=== PATIENT | female | born 1955 | race Caucasian/White ===

== ENCOUNTER → 2017-12-22 15:38 | Outpatient (CLI) | payer BC, SELFPAY ==
--- NOTE | 2017-12-22 15:38 | HPBD_ITS ---
STUDY: DUAL ENERGY X-RAY ABSORPTIOMETRY / DXA REASON FOR EXAM: Female, 62 years old. Early menopause. Loss of height. TECHNIQUE: Bone Mineral Density (BMD) measurements of lumbar spine and bilateral hips were obtained. COMPARISON: Comparison is made with prior study dated July 31, 2015. FINDINGS: Lumbar Spine (L1-L4): g/cm2 (0.891) / T-score (-2.6) / Z-score (-1.4) Findings are suggestive of osteoporosis with a high fracture risk. Left Femur Total: g/cm2 (0.776) / T-score (-1.8) / Z-score (-0.9) Left Femoral Neck: g/cm2 (0.754) / T-score (-2.0) / Z-score (-0.8) Right Femur Total: g/cm2 (0.758) / T-score (-2.0) / Z-score (-1.1) Right Femoral Neck: g/cm2 (0.763) / T-score (-2.0) / Z-score (-0.7) The T-Scores on the most recent prior examination were: Lumbar Spine (L1-L4): There has been improvement of bone density since the previous examination. Left Femur Total: which represents an improvement of 0.1%. Right Femur Total: which represents an improvement of 2.2%. HPBD/Dexa Bone Density Study (HP) IMPRESSION: The patient is considered osteoporotic as outlined below according to World Spenser Organization (WHO) criteria with a high fracture risk. There has been improvement of bone density since the previous examination. Reference Information: The T-score is the number of standard deviations above or below the standard which is normal for young adults at their peak bone mineral density. The World Health Organization (WHO) interprets the T-scores as follows: Above -1 Normal bone density Between -1 and -2.5 Osteopenia Equal to / or below -2.5 Osteoporosis As a practical clinical guideline, osteopenia may be graded as follows: Mild -1 through -1.5 Moderate -1.6 through -2.0 Severe -2.1 through -2.4 The Z-score is the number of standard deviations above or below age-matched controls. A Z-score of less than -1.5 would be considered abnormal. References: 1. NIH Osteoporosis and Related Bone Diseases http://www.osteo.org 2. International Society for Clinical Densitometry http://www.iscd.org 3. National Osteoporosis Foundation http://www.nof.org Electronically Signed: Rk Rodgers MD at 9:15 EST Tel [phone], Service support ,
--- NOTE | 2017-12-22 15:38 | HPBI_ITS ---
MAMMOGRAPHY - BILATERAL SCREENING REASON FOR EXAM: Female, 62 years old. Routine annual screening examination. PERTINENT HISTORY: Mother with breast cancer. Aunts with breast cancer. TECHNIQUE: Digital bilateral breast natalie (3D mammographic acquisition) in the CC and MLO projections. 2-D mediolateral oblique (MLO) and craniocaudad (CC) views of both breasts were obtained. CAD: Full Field Digital Mammography with Computer Added Detection was performed. COMPARISON: Comparison is made with prior study dated July 03, 2016 and June 12, 2015. FINDINGS: Breast Composition: There are scattered areas of fibroglandular density. There are no dominant masses or suspicious calcifications. No other significant abnormalities are identified. There has been no significant change since the prior study. HPBI/SCREENING MAMM (CAD), BILAT IMPRESSION: Stable bilateral screening mammogram. Yearly follow-up mammogram recommended. (A) ASSESSMENT CATEGORY: BIRADS Category 1: Negative. A letter regarding these results will be sent to the patient by the facility within 30 days. Approximately 10% of breast cancers are not detected by mammography. A normal mammogram should not delay biopsy of a clinically suspicious abnormality. [id number] Electronically Signed: Rk Rodgers MD at 8:07 EST Tel [phone], Service support ,
== END ==
PROVIDERS: Family Provider Family Medicine; PCP Family Medicine; Visit Provider Family Medicine
DX: Z12.31 Encounter for screening mammogram for malignant neoplasm of breast (principal); M81.0 Age-related osteoporosis without current pathological fracture
CPT/HCPCS: 77063; 77067; 77080

== ENCOUNTER → 2019-05-27 | Outpatient (CLI) | payer BC, SELFPAY ==
--- NOTE | 2019-05-27 14:49 | BI_ITS ---
MAMMOGRAPHY - BILATERAL SCREENING REASON FOR EXAM: Female, 63 years old. Routine annual screening examination. PERTINENT HISTORY: Mother with breast cancer. Aunts with breast cancer. TECHNIQUE: Digital bilateral breast rosa (3D mammographic acquisition) in the CC and MLO projections. 2-D mediolateral oblique (MLO) and craniocaudad (CC) views of both breasts were obtained. CAD: Full Field Digital Mammography with Computer Added Detection was performed. COMPARISON: Comparison is made with prior study dated December 22, 2017 and July 03, 2016. FINDINGS: Breast Composition: There are scattered areas of fibroglandular density. There are no dominant masses or suspicious calcifications. No other significant abnormalities are identified. There has been no significant change since the prior study. BI/SCREEN MAMM (CAD) W/ROSA BILAT IMPRESSION: Stable bilateral screening mammogram. Yearly follow-up mammogram recommended. (A) ASSESSMENT CATEGORY: BIRADS Category 1: Negative. A letter regarding these results will be sent to the patient by the facility within 30 days. Approximately 10% of breast cancers are not detected by mammography. A normal mammogram should not delay biopsy of a clinically suspicious abnormality. [id number] Electronically Signed: Rk Rodgers, at 8:30 EDT , Service support ,
== END | disposition home or self-care (01) ==
PROVIDERS: Family Provider Family Medicine; PCP Family Medicine; Referring Provider Specialist; Visit Provider Specialist
DX: Z12.31 Encounter for screening mammogram for malignant neoplasm of breast (principal)
CPT/HCPCS: 77063; 77067

== ENCOUNTER → 2020-06-28 14:00 | Outpatient (CLI) | payer BC, SELFPAY ==
--- NOTE | 2020-06-28 14:03 | BI_ITS ---
MAMMOGRAPHY - BILATERAL SCREENING REASON FOR EXAM: Female, 64 years old. Routine annual screening examination. PERTINENT HISTORY: Mother with breast cancer. Aunts with breast cancer. TECHNIQUE: Digital bilateral breast rosa (3D mammographic acquisition) in the CC and MLO projections. 2-D mediolateral oblique (MLO) and craniocaudad (CC) views of both breasts were obtained. CAD: Full Field Digital Mammography with Computer Added Detection was performed. COMPARISON: Comparison is made with prior study dated 05/27/2019 and 12/22/2017. FINDINGS: Breast Composition: There are scattered areas of fibroglandular density. There are no dominant masses or suspicious calcifications. No other significant abnormalities are identified. There has been no significant change since the prior study. BI/SCREEN MAMM (CAD) W/ROSA BILAT IMPRESSION: Stable bilateral screening mammogram. Yearly follow-up mammogram recommended. (A) ASSESSMENT CATEGORY: BIRADS Category 1: Negative. A letter regarding these results will be sent to the patient by the facility within 30 days. Approximately 10% of breast cancers are not detected by mammography. A normal mammogram should not delay biopsy of a clinically suspicious abnormality. [id number] Electronically Signed: Rk Rodgers, at 8:58 EDT , Service support ,
--- NOTE | 2020-06-28 14:05 | BD_ITS ---
STUDY: DUAL ENERGY X-RAY ABSORPTIOMETRY / DXA REASON FOR EXAM: Female, 64 years old. Age of hortencia 47. Pat is 169.8# and 66.5 and quot; a loss of 1 and quot; per pat. Pat thinks she was on a anti-seizure med for a couple of yrs many yrs ago. Currently on an HRT. Takes levothyroxin. Has been on fosomax for about 3 yrs now. Mother and sister have osteo. She does a little to moderate exercising. TECHNIQUE: Bone Mineral Density (BMD) measurements of lumbar spine and bilateral hips were obtained. COMPARISON: Comparison is made with prior study dated 07/31/2015. FINDINGS: Lumbar Spine (L1-L4): g/cm2 (0.946) / T-score (-2.1) / Z-score (-0.7) Findings are suggestive of osteopenia with a high fracture risk. Left Femur Total: g/cm2 (0.791) / T-score (-1.7) / Z-score (-0.7) Left Femoral Neck: g/cm2 (0.804) / T-score (-1.7) / Z-score (-0.3) Right Femur Total: g/cm2 (0.772) / T-score (-1.9) / Z-score (-0.8) Right Femoral Neck: g/cm2 (0.778) / T-score (-1.9) / Z-score (-0.5) The T-Scores on the most recent prior examination were: Lumbar Spine (L1-L4): There has been improvement of bone density since the previous examination. Left Femur Total: which represents an improvement of 1.9%. Right Femur Total: which represents an improvement of 1.8%. BD/Dexa Bone Density Study IMPRESSION: The patient is considered osteopenic as outlined below according to World Spenser Organization (WHO) criteria with a high fracture risk. There has been improvement of bone density since the previous examination. Reference Information: The T-score is the number of standard deviations above or below the standard which is normal for young adults at their peak bone mineral density. The World Health Organization (WHO) interprets the T-scores as follows: Above -1 Normal bone density Between -1 and -2.5 Osteopenia Equal to / or below -2.5 Osteoporosis As a practical clinical guideline, osteopenia may be graded as follows: Mild -1 through -1.5 Moderate -1.6 through -2.0 Severe -2.1 through -2.4 The Z-score is the number of standard deviations above or below age-matched controls. A Z-score of less than -1.5 would be considered abnormal. References: 1. NIH Osteoporosis and Related Bone Diseases http://www.osteo.org 2. International Society for Clinical Densitometry http://www.iscd.org 3. National Osteoporosis Foundation http://www.nof.org Electronically Signed: Rk Rodgers, at 12:34 EDT , Service support ,
== END ==
PROVIDERS: PCP Family Medicine
DX: Z12.31 Encounter for screening mammogram for malignant neoplasm of breast (principal); M81.8 Other osteoporosis without current pathological fracture
CPT/HCPCS: 77063; 77067; 77080

== ENCOUNTER → 2021-07-01 12:07 | Outpatient (CLI) | payer BC, SELFPAY ==
--- NOTE | 2021-07-01 12:09 | BI_ITS ---
MAMMOGRAPHY - BILATERAL SCREENING REASON FOR EXAM: Female, 65 years old. Routine annual screening examination. PERTINENT HISTORY: Mother with breast cancer. Aunts with breast cancer. TECHNIQUE: Digital bilateral breast rosa (3D mammographic acquisition) in the CC and MLO projections. 2-D mediolateral oblique (MLO) and craniocaudad (CC) views of both breasts were obtained. CAD: Full Field Digital Mammography with Computer Added Detection was performed. COMPARISON: Comparison is made with prior study 06/28/2020 and 05/27/2019. FINDINGS: Breast Composition: There are scattered areas of fibroglandular density. There are no dominant masses or suspicious calcifications. No other significant abnormalities are identified. There has been no significant change since the prior study. BI/SCRN MAMM (CAD)W/ROSA BILAT IMPRESSION: Stable bilateral screening mammogram. Yearly follow-up mammogram recommended. (A) ASSESSMENT CATEGORY: BIRADS Category 1: Negative. A letter regarding these results will be sent to the patient by the facility within 30 days. Approximately 10% of breast cancers are not detected by mammography. A normal mammogram should not delay biopsy of a clinically suspicious abnormality. [id number] Electronically Signed: Rk Rodgers MD at 12:54 EDT , Service support ,
== END ==
PROVIDERS: PCP Nurse Practitioner Family; Referring Provider Specialist; Visit Provider Specialist
DX: Z12.31 Encounter for screening mammogram for malignant neoplasm of breast (principal)
CPT/HCPCS: 77063; 77067

== ENCOUNTER → 2022-07-29 | Outpatient (CLI) | payer BC, SELFPAY ==
--- NOTE | 2022-07-29 10:00 | BI_ITS ---
MAMMOGRAPHY - BILATERAL SCREENING REASON FOR EXAM: Female, 66 years old. Routine annual screening examination. PERTINENT HISTORY: Mother with breast cancer. Aunts with breast cancer. TECHNIQUE: Digital bilateral breast rosa (3D mammographic acquisition) in the CC and MLO projections. 2-D mediolateral oblique (MLO) and craniocaudad (CC) views of both breasts were obtained. CAD: Full Field Digital Mammography with Computer Added Detection was performed. COMPARISON: Comparison is made with prior study dated 07/01/2021 and 06/28/2020. FINDINGS: Breast Composition: There are scattered areas of fibroglandular density. There are no dominant masses or suspicious calcifications. No other significant abnormalities are identified. There has been no significant change since the prior study. BI/SCRN MAMM (CAD)W/ROSA BILAT IMPRESSION: Stable bilateral screening mammogram. Yearly follow-up mammogram recommended. (A) ASSESSMENT CATEGORY: BIRADS Category 1: Negative. A letter regarding these results will be sent to the patient by the facility within 30 days. Approximately 10% of breast cancers are not detected by mammography. A normal mammogram should not delay biopsy of a clinically suspicious abnormality. [id number] Electronically Signed: Rk Rodgers MD at 8:48 EDT ,
--- NOTE | 2022-07-29 10:17 | BD_ITS ---
STUDY: DUAL ENERGY X-RAY ABSORPTIOMETRY / DXA REASON FOR EXAM: Female, 66 years old. M810. Patient is postmenopausal. TECHNIQUE: Bone Mineral Density (BMD) measurements of lumbar spine and bilateral hips were obtained. COMPARISON: Comparison is made with prior study 06/28/2020. FINDINGS: Lumbar Spine (L1-L4): g/cm2 (0.784) / T-score (-2.4) / Z-score (-0.6) Findings are suggestive of osteopenia with a high fracture risk. Left Femur Total: g/cm2 (0.787) / T-score (-1.3) / Z-score (-0.1) Left Femoral Neck: g/cm2 (0.647) / T-score (-1.8) / Z-score (-0.3) Right Femur Total: g/cm2 (0.750) / T-score (-1.6) / Z-score (-0.4) Right Femoral Neck: g/cm2 (0.640) / T-score (-1.9) / Z-score (-0.4) The T-Scores on the most recent prior examination were: Lumbar Spine (L1-L4): There has been worsening of bone density since the previous examination. Left Femur Total: which represents an improvement of 7.7%. Right Femur Total: which represents an improvement of 5.1%. BD/Dexa Bone Density Study IMPRESSION: The patient is considered osteopenic as outlined below according to World Spenser Organization (WHO) criteria with a moderate fracture risk. There has been improvement of bone density since the previous examination. Reference Information: The T-score is the number of standard deviations above or below the standard which is normal for young adults at their peak bone mineral density. The World Health Organization (WHO) interprets the T-scores as follows: Above -1 Normal bone density Between -1 and -2.5 Osteopenia Equal to / or below -2.5 Osteoporosis As a practical clinical guideline, osteopenia may be graded as follows: Mild -1 through -1.5 Moderate -1.6 through -2.0 Severe -2.1 through -2.4 The Z-score is the number of standard deviations above or below age-matched controls. A Z-score of less than -1.5 would be considered abnormal. References: 1. NIH Osteoporosis and Related Bone Diseases www osteo.org 2. International Society for Clinical Densitometry www iscd.org 3. National Osteoporosis Foundation www nof.org Electronically Signed: Rk Rodgers MD at 11:04 EDT ,
== END | disposition home or self-care (01) ==
LOC: OPBD 09:57
PROVIDERS: PCP Student in an Organized Health Care Education/Training Program; Visit Provider Specialist
DX: Z12.31 Encounter for screening mammogram for malignant neoplasm of breast (principal); Z78.0 Asymptomatic menopausal state; Z87.310 Personal history of (healed) osteoporosis fracture
CPT/HCPCS: 77063; 77067; 77080

== ENCOUNTER → 2023-07-01 | Outpatient (CLI) | payer MEDICARE, OTHER, SELFPAY ==
--- NOTE | 2023-07-01 08:44 | BI_ITS ---
MAMMOGRAPHY - BILATERAL SCREENING REASON FOR EXAM: Female, 67 years old. Routine annual screening examination. PERTINENT HISTORY: Mother with breast cancer. Aunts with breast cancer. TECHNIQUE: Digital bilateral breast rosa (3D mammographic acquisition) in the CC and MLO projections. 2-D mediolateral oblique (MLO) and craniocaudad (CC) views of both breasts were obtained. CAD: Full Field Digital Mammography with Computer Added Detection was performed. COMPARISON: Comparison is made with prior study dated July 29, 2022 and July 01, 2021. FINDINGS: Breast Composition: There are scattered areas of fibroglandular density. There are no dominant masses or suspicious calcifications. No other significant abnormalities are identified. There has been no significant change since the prior study. BI/SCRN MAMM (CAD)W/ROSA BILAT IMPRESSION: Stable bilateral screening mammogram. Yearly follow-up mammogram recommended. (A) ASSESSMENT CATEGORY: BIRADS Category 1: Negative. A letter regarding these results will be sent to the patient by the facility within 30 days. Approximately 10% of breast cancers are not detected by mammography. A normal mammogram should not delay biopsy of a clinically suspicious abnormality. [id number] Electronically Signed: Rk Rodgers MD at 9:37 EDT ,
== END | disposition home or self-care (01) ==
LOC: OPBI 08:42
PROVIDERS: PCP Student in an Organized Health Care Education/Training Program; Referring Provider Nurse Practitioner Women's Health; Visit Provider Nurse Practitioner Women's Health
DX: Z12.31 Encounter for screening mammogram for malignant neoplasm of breast (principal); Z80.3 Family history of malignant neoplasm of breast
CPT/HCPCS: 77063; 77067

== ENCOUNTER → 2024-08-09 | Outpatient (CLI) | payer MEDICARE, OTHER, SELFPAY ==
--- NOTE | 2024-08-09 13:17 | BI_ITS ---
MAMMOGRAPHY - BILATERAL SCREENING REASON FOR EXAM: Female, 68 years old. Routine annual screening examination. PERTINENT HISTORY: Mother with breast cancer. Aunts with breast cancer. TECHNIQUE: Digital bilateral breast rosa (3D mammographic acquisition) in the CC and MLO projections. 2-D mediolateral oblique (MLO) and craniocaudad (CC) views of both breasts were obtained. CAD: Full Field Digital Mammography with Computer Added Detection was performed. COMPARISON: Comparison is made with prior study July 01, 2023 and July 29, 2022. FINDINGS: Breast Composition: There are scattered areas of fibroglandular density. There are no dominant masses or suspicious calcifications. No other significant abnormalities are identified. There has been no significant change since the prior study. BI/SCRN MAMM (CAD)W/ROSA BILAT IMPRESSION: Stable bilateral screening mammogram. Yearly follow-up mammogram recommended. (A) ASSESSMENT CATEGORY: BIRADS Category 1: Negative. A letter regarding these results will be sent to the patient by the facility within 30 days. Approximately 10% of breast cancers are not detected by mammography. A normal mammogram should not delay biopsy of a clinically suspicious abnormality. [id number] Electronically Signed: Rk Rodgers MD at 14:22 EDT ,
--- NOTE | 2024-08-09 13:21 | BD_ITS ---
STUDY: DUAL ENERGY X-RAY ABSORPTIOMETRY / DXA REASON FOR EXAM: Female, 68 years old. M810 TECHNIQUE: Bone Mineral Density (BMD) measurements of lumbar spine and bilateral hips were obtained. COMPARISON: Comparison is made with prior study July 29, 2022. FINDINGS: Lumbar Spine (L1-L4): g/cm2 (0.803) / T-score (-2.2) / Z-score (-0.3) Findings are suggestive of osteopenia with a high fracture risk. Left Femur Total: g/cm2 (0.789) / T-score (-1.3) / Z-score (0.1) Left Femoral Neck: g/cm2 (0.654) / T-score (-1.8) / Z-score (-0.1) Right Femur Total: g/cm2 (0.768) / T-score (-1.4) / Z-score (-0.1) Right Femoral Neck: g/cm2 (0.667) / T-score (-1.6) / Z-score (0.0) The T-Scores on the most recent prior examination were: Lumbar Spine (L1-L4): There has been improvement of bone density since the previous examination. Left Femur Total: which represents an improvement of 0.2%. Right Femur Total: which represents an improvement of 2.4%. BD/Dexa Bone Density Study IMPRESSION: The patient is considered osteopenic as outlined below according to World Spenser Organization (WHO) criteria with a high fracture risk. There has been improvement of bone density since the previous examination. Reference Information: The T-score is the number of standard deviations above or below the standard which is normal for young adults at their peak bone mineral density. The World Health Organization (WHO) interprets the T-scores as follows: Above -1 Normal bone density Between -1 and -2.5 Osteopenia Equal to / or below -2.5 Osteoporosis As a practical clinical guideline, osteopenia may be graded as follows: Mild -1 through -1.5 Moderate -1.6 through -2.0 Severe -2.1 through -2.4 The Z-score is the number of standard deviations above or below age-matched controls. A Z-score of less than -1.5 would be considered abnormal. References: 1. NIH Osteoporosis and Related Bone Diseases www osteo.org 2. International Society for Clinical Densitometry www iscd.org 3. National Osteoporosis Foundation www nof.org Electronically Signed: Rk Rodgers MD at 12:51 EDT ,
== END | disposition home or self-care (01) ==
LOC: OPBD 13:14
PROVIDERS: PCP Student in an Organized Health Care Education/Training Program; Referring Provider Student in an Organized Health Care Education/Training Program; Visit Provider Student in an Organized Health Care Education/Training Program
DX: Z00.00 Encounter for general adult medical examination without abnormal findings (principal); Z12.31 Encounter for screening mammogram for malignant neoplasm of breast; Z80.3 Family history of malignant neoplasm of breast; Z78.0 Asymptomatic menopausal state; M81.0 Age-related osteoporosis without current pathological fracture; Z13.820 Encounter for screening for osteoporosis
CPT/HCPCS: 77063; 77067; 77080

== ENCOUNTER → 2025-09-11 | Outpatient (CLI) | payer MEDICARE, OTHER, SELFPAY ==
--- NOTE | 2025-09-11 14:39 | BI_ITS ---
EXAM: SCRN MAMM (CAD)W/ROSA BILAT DATE: 09/11/2025 CLINICAL HISTORY: F, Age 69 y/o , SCREENING TECHNIQUE: Procedure Code: [id number] Modality: MG Procedure: SCRN MAMM (CAD)W/ROSA BILAT COMPARISON: Prior exam(s) were compared FINDINGS: TISSUE DENSITY: The breasts are heterogeneously dense, which may obscure small masses. Bilateral Breast Mammographic Findings: No suspicious masses, calcifications or other abnormalities are identified. BI/SCRN MAMM (CAD)W/ROSA BILAT IMPRESSION: No mammographic evidence of malignancy in either breast. OVERALL FINAL ASSESSMENT BI-RADS 1: NEGATIVE. RECOMMENDATION: Routine annual follow-up in 1 Year Additional Recommendation none A letter with findings and recommendations will be mailed to the patient. Reading Location: [id number]
--- NOTE | 2025-09-11 14:39 | BI_ITS ---
EXAM: SCRN MAMM (CAD)W/ROSA BILAT DATE: 09/11/2025 CLINICAL HISTORY: F, Age 69 y/o , SCREENING TECHNIQUE: Procedure Code: [id number] Modality: MG Procedure: SCRN MAMM (CAD)W/ROSA BILAT COMPARISON: Prior exam(s) were compared FINDINGS: TISSUE DENSITY: The breasts are heterogeneously dense, which may obscure small masses. Bilateral Breast Mammographic Findings: No suspicious masses, calcifications or other abnormalities are identified. BI/SCRN MAMM (CAD)W/ROSA BILAT IMPRESSION: No mammographic evidence of malignancy in either breast. OVERALL FINAL ASSESSMENT BI-RADS 1: NEGATIVE. RECOMMENDATION: Routine annual follow-up in 1 Year Additional Recommendation none A letter with findings and recommendations will be mailed to the patient. Reading Location: [id number]
--- OUTSIDE RECORDS SUMMARY | 2025-09-11 15:14 | XMS RPT_ITS | CCD ---
[facility] Team Providers Care Art Psychotherapist Or Therapist Name Role Phone VLADIMIR RUDOLPH APRN, CNP Primary Care Phys ician ROMAR DO, DR COOK Primary Care Physician [phone] JOSÉ MIGUEL PIPER-BYRON, JESSICA Hernandez Attending Unavailab le ROMAR DO, DR COOK Primary Care Unavailable ROMAR DO, DR COOK Attending Unavailable ROMAR DO, DR COOK Primary Care Unavailable JOSÉ MIGUEL PIPER-CAPACITY PLANNING ENGINEER, JESSICA Hernandez Attending Unavailab le ROMAR DO, DR COOK Primary Care Unavailable ROMAR DO, DR COOK Attending Unavailable ROMAR DO, DR COOK Primary Care Unavailable ROMAR DO, DR COOK Attending Unavailable ROMAR DO, DR COOK Primary Care Unavailable SHEROCK DO, HAIDER Zhong Attending Unavailab le ROMAR DO, DR COOK Primary Care Unavailable HAYES REEDER MD Attending Unavailable ROMAR DO, DR COOK Primary Care Unavailable MARTIR BAILEYP-CSTEVEN Attending Unavailabl e ROMAR DO, DR COOK Primary Care Unavailable ROMAR DO, DR COOK Primary Care Unavailable ROMAR DO, DR COOK Attending Unavailable ROMAR DO, DR COOK Primary Care Unavailable ROMAR DO, DR COOK Attending Unavailable ROMAR DO, DR COOK Primary Care Unavailable JOSÉ MIGUEL SUPERVISOR TILE AND MOTTLE-CAPACITY PLANNING ENGINEER, JESSICA Hernandez Attending Unavailab le ROMAR DO, DR COOK Primary Care Unavailable ROMAR DO, DR COOK Attending Unavailable ROMAR DO, DR COOK Primary Care Unavailable ROSAURA MCCOLLUM Attending Unavailabl e ROMAR DO, DR COOK Primary Care Unavailable DENVER PIPER-MICHAEL, REFUGIO Hernandez Attending Yanelis vailable ROMAR DO, DR COOK Attending Unavailable ROMAR DO, DR COOK Primary Care Unavailable ROMAR DO, DR COOK Primary Care Unavailable SHEROCK DO, HAIDER Zhong Attending Unavailab le ROMAR DO, DR COOK Attending Unavailable ROMAR DO, DR COOK Primary Care Unavailable ROMAR DO, DR COOK Primary Care Unavailable ROMAR DO, DR COOK Attending Unavailable ROMAR DO, DR COOK Primary Care Unavailable MARTIR INSULATION NOZZLEMAN-C, STEVEN Lance Attending Unavailabl e ROMAR DO, DR COOK Primary Care Unavailable ROMAR DO, DR COOK Attending Unavailable ROMAR DO, DR COOK Attending Unavailable ROMAR DO, DR COOK Primary Care Unavailable ROMAR DO, DR COOK Attending Unavailable ROMAR DO, DR COOK Primary Care Unavailable ROMAR DO, DR COOK Primary Care Unavailable ROMAR DO, DR COOK Attending Unavailable ROMAR DO, DR COOK Primary Care Unavailable JOVAN SUPERVISOR TILE AND MOTTLE-CAPACITY PLANNING ENGINEER, PHILIP Attending Unavail able ROMAR DO, DR COOK Primary Care Unavailable VENICE APRN_CNP, ROSAURA Attending Unavailabl Joyce Pardo Referring Unavailable Joyce Lynn Attending Unavailable Joyce Lynn Primary Care Unavailable Allergies Allergy Classification Reported Allergen(s) Allergy Type Date of Onset Reaction(s) Facility (20 sources) Penicillin; Translations: [penicillin] Drug Allergy Weal (disorder) [facility] (20 sources) Sulfonamides (Antibiotic); Translations: [sulfa drugs] Drug allergy Unknown (qualifier value) [facility] (1 source) Penicillins Allergy to substance 4 Unknown [facility] (1 source) Sulfonamides (Antibiotic) Allergy to substance 4 Unknown [facility] (1 source) Penicillins Drug allergy (disorder) 4 [facility] Rep[facility] (1 source) Sulfonamides (Antibiotic) Drug allergy (disorder) 4 [facility] Repository Medications Current Medications Medication Drug Class(es) Dates Sig (Normalized) Sig (Original) alendronic acid 70 mg oral tablet (4 sources) Bisphosphonate Start: 12-27-2019 alendronate 70 mg oral tablet Dose : 70 mg = 1 tab(s), Oral, qWeek, # 12 tab(s), 0 Refill(s) Start Date: 12/27/19 Status: Ordered calcium citrate 950 mg oral tablet (10 sources) Start: 09-06-2024 End: 10-11-2025 calcium citrate 950 mg (200 mg elemental calcium) oral tablet Dose : 950 mg = 1 tab(s), Oral, BID, # 200 tab(s), 3 Refill(s), Pharmacy: [facility]/pharmacy #[id number], 171.1, cm, 09/06/24 9:28:00 EDT, Height, kg, 09/06/24 9:22:00 EDT, Dosing Weight Start Date: 09/06/24 Stop Date: 10/11/25 Status: Ordered Medication Dispense Status: Completed Quantity: 200.0 Unit: tab(s) Total Allowed Fills: 4 Fills Dispensed: 0 cephalexin 500 mg oral tablet (2 sources) Cephalosporin Antibacterial Start: 05-29-2025 End: 06-03-2025 cephalexin 500 mg oral tablet Dose : 500 mg = 1 tab(s), Oral, BID, X 5 day(s), # 10 tab(s), 0 Refill(s), 06/03/25 2:14:00 PM EDT, Pharmacy: [facility]/pharmacy #[id number], 166, cm, 05/29/25 13:51:00 EDT, Height, 85.4, kg, 05/29/25 13:51:00 EDT, Dosing Weight Start Date: 05/29/25 Stop Date: 06/03/25 Status: Ordered Quantity: 10.0 Unit: tab(s) Repeat number: 1 D3-50 (50,000 units) oral capsule (10 sources) Start: 04-23-2022 D3-50 (50,000 units) oral capsule Dose : 1,250 mcg = 1 cap(s), Oral, qWeek, # 100 cap(s), 0 Refill(s) Start Date: 04/23/22 Status: Ordered DME MISCellaneous (3 sources) Start: 04-27-2025 DME [facility]Cellaneous See Instructions, BP cuff and machine, Dx: R03.0, # 1 EA, 0 Refill(s), Elevated blood pressure reading, 85 Start Date: 04/27/25 Status: Ordered Quantity: 1.0 Unit: EA Repeat number: 1 Indications: Elevated blood-pressure reading, without diagnosis of hypertension; fexofenadine hydrochloride 180 mg oral tablet (6 sources) Histamine-1 Receptor Antagonist Start: 05-25-2025 Estella 24 Hour Allergy oral tablet Dose : 180 mg = 1 tab(s), Oral, Daily, # 90 tab(s), 0 Refill(s) Start Date: 05/25/25 Status: Ordered Medication Dispense Status: Completed Quantity: 90.0 Unit: tab(s) Total Allowed Fills: 1 Fills Dispensed: 0 Hormone replacements (20 sources) Start: 01-24-2020 Hormone replacements Hormone replacements, 0 Refill(s), 81.4 Start Date: 01/24/20 Status: Ordered Medication Dispense Status: Completed Total Allowed Fills: 1 Fills Dispensed: 0 Start: 01-24-2020 Hormone replac ements Hormone replacements, 0 Refill(s), 81.4 Start Date: 01/24/20 Status: Ordered Repeat number: 1 Start: 01-24-2020 Hormone replac ements Hormone replacements, 0 Refill(s), 81.4 Start Date: 01/24/20 Status: Ordered Fiber Choice (1 source) Start: 08-03-2025 Fiber Choice See Instructions, prebiotic fiber, 0 Refill(s) Start Date: 08/03/25 Status: Ordered Medication Dispense Status: Completed Total Allowed Fills: 1 Fills Dispensed: 0 levothyroxine sodium 0.075 mg oral tablet (20 sources) l-Thyroxine Start: 12-27-2019 levothyroxine 75 mcg (0.075 mg) oral tablet Dose : 75 mcg = 1 tab(s), Oral, qDay, # 30 tab(s), 0 Refill(s) Start Date: 12/27/19 Status: Ordered Medication Dispense Status: Completed Quantity: 30.0 Unit: tab(s) Total Allowed Fills: 1 Fills Dispensed: 0 liothyronine sodium 0.025 mg oral tablet (6 sources) l-Triiodothyroni ne Start: 05-29-2025 take 0.5 tablet by mouth once daily liothyronine 25 mcg oral tablet TAKE 1/2 TABLET BY MOUTH ONCE DAILY Start Date: 05/29/25 Status: Ordered Medication Dispense Status: Completed Total Allowed Fills: 1 Fills Dispensed: 0 meclizine hydrochloride 12.5 mg oral tablet (1 source) Antiemetic Start: 03-21-2025 End: 03-26-2025 take 1-2 tablets by mouth four times daily as needed for dizziness meclizine 12.5 mg oral tablet 1-2 tab(s), Oral, QID, PRN as needed for dizziness, Do not drive, operate heavy machinery, or drink alcohol while on med. No other anti-histamines while on med., # 40 tab(s), 0 Refill(s), [id number], 166.9, cm, 03/21/25 9:02:00 EDT, Height, kg, 03/21/25 9:02:00 EDT, Dosing Weight Start Date: 03/21/25 Stop Date: 03/26/25 Status: Ordered Quantity: 40.0 Unit: tab(s) Repeat number: 1 metoprolol tartrate 25 mg oral tablet (3 sources) beta-Adrenergic Jose Start: 06-30-2025 metoprolol tartrate 25 mg oral tablet Dose : 25 mg = 1 tab(s), Oral, BID, PRN Palpitation, # 60 tab(s), 6 Refill(s), [id number], 170, cm, 06/30/25 14:50:00 EDT, Height, kg, 06/30/25 14:50:00 EDT, Dosing Weight Start Date: 06/30/25 Status: Ordered Medication Dispense Status: Completed Quantity: 60.0 Unit: tab(s) Total Allowed Fills: 7 Fills Dispensed: 0 pantoprazole 40 mg delayed release oral tablet (16 sources) Proton Pump Inhibitor Start: 06-23-2023 take 1 tablet by mouth before mealtime pantoprazole 40 mg oral enteric coated tablet TAKE 1 TABLET BY MOUTH BEFORE MEALS IN THE MORNING Start Date: 06/23/23 Status: Ordered Medication Dispense Status: Completed Total Allowed Fills: 1 Fills Dispensed: 0 Completed/Discontinued Medications Medication Drug Class(es) Dates Sig (Normalized) Sig (Original) cyclobenzaprine hydrochloride 5 mg oral tablet (10 sources) Muscle Relaxant Start: 09-06-2024 End: 09-20-2024 cyclobenzaprine 5 mg oral tablet Dose : 5 mg = 1 tab(s), Oral, TID, PRN Muscle spasm, Do not drive, operate heavy machinery, or drink alcohol while on this medication., # 21 tab(s), 1 Refill(s), [id number], 171.1, cm, 09/06/24 9:28:00 EDT, Height, kg, 09/06/24 9:22:00 EDT, Dosing Weight Start Date: 09/06/24 Stop Date: 09/20/24 Status: Ordered Medication Dispense Status: Completed Quantity: 21.0 Unit: tab(s) Total Allowed Fills: 2 Fills Dispensed: 0 1 ml denosumab 60 mg/ml prefilled syringe (1 source) RANK Ligand Inhibitor Start: 09-23-2022 denosumab 60 mg/mL subcutaneous solution Dose : 60 mg = 1 mL, Subcutaneous, q6mo, # 1 mL, 3 Refill(s) Start Date: 09/23/22 Status: Ordered famotidine 20 mg oral tablet (3 sources) Histamine-2 Receptor Antagonist Start: 06-22-2025 End: 07-22-2025 famotidine 20 mg oral tablet Dose : 20 mg = 1 tab(s), Oral, BID, PRN Reflux, avoid eating and drinking for 10 minutes after each dose Please use this prn script thanks, # 60 tab(s), 0 Refill(s), [id number], 166, cm, 06/22/25 8:36:00 EDT, Height, kg, 06/22/25 8:36:00 EDT, Dosing Weight Start Date: 06/22/25 Stop Date: 07/22/25 Status: Ordered Medication Dispense Status: Completed Quantity: 60.0 Unit: tab(s) Total Allowed Fills: 1 Fills Dispensed: 0 fluticasone propionate 0.05 mg/actuat metered dose nasal spray (14 sources) Corticosteroid Start: 02-07-2025 End: 08-06-2025 take 1 dose nasal route once daily Flonase 50 mcg/inh nasal spray Dose = 2 spray(s), Nostril, each, qDay, shake well before using, # 1 EA, 5 Refill(s), Pharmacy: [facility]/pharmacy #[id number], Rhinitis URI with cough and congestion, 166.9, cm, 02/07/25 8:11:00 EDT, Height, kg, 02/07/25 8:11:00 EDT, Dosing Weight Start Date: 02/07/25 Stop Date: 08/06/25 Status: Ordered Medication Dispense Status: Completed Quantity: 1.0 Unit: EA Total Allowed Fills: 6 Fills Dispensed: 0 Indications: Chronic rhinitis; Acute upper respiratory infection, unspecified; Start: 09-21-2023 take 1 dose nasal ro [place] twice daily Flonase 50 mcg/inh nasal spray Dose = 2 spray(s), Nostril, each, BID, # 15.8 mL, 0 Refill(s), Pharmacy: [facility]/pharmacy #[id number], Rhinitis URI with cough and congestion, 171.1, cm, 06/23/23 8:10:00 EDT, Height, kg, 09/21/23 15:29:00 EDT, Dosing Weight Start Date: 09/21/23 Status: Ordered omeprazole 20 mg delayed release oral capsule (1 source) Proton Pump Inhibitor Start: 06-24-2022 End: 08-23-2022 omeprazole 20 mg oral delayed release capsule Dose : 20 mg = 1 cap(s), Oral, qDay, # 60 cap(s), 0 Refill(s), Pharmacy: [facility] #[id number], 168.5, cm, 06/24/22 9:53:00 EDT, Height Start Date: 06/24/22 Stop Date: 08/23/22 Status: Ordered Problems Active Problems Problem Classification Problem Date Documented Date Episodic/Chronic Abdominal hernia (20 sources) Hiatal hernia 06-24-2022 Episodic Cardiac dysrhythmias (9 sources) Supraventricular tachycardia; Translations: [Paroxysmal supraventricular tachycardia] 05-25-2025 Chronic Diseases of white blood cells (18 sources) Leukopenia; Translations: [Decreased white blood cell count, unspecified] Chronic Esophageal disorders (20 sources) Gastroesophageal reflux disease 06-24-2022 Chronic Essential hypertension (1 source) Hypertensive disorder 08-03-2025 Chronic Fracture of upper limb (1 source) Closed fracture distal radius, intra-articular, -punch; Translations: [Other intraarticular fracture of lower end of left radius, subsequent encounter for closed fracture with routine healing] Episodic Heart valve disorders (20 sources) First heart sound split 06-24-2022 Episodic Hypertension with complications and secondary hypertension (3 sources) 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 06-30-2025 Chronic Menopausal disorders (3 sources) Disorder associated with menstruation AND/OR menopause; Translations: [Menopausal and female climacteric states] Chronic Nutritional deficiencies (1 source) Vitamin D deficiency; Translations: [Vitamin D deficiency, unspecified] Chronic Osteoporosis (20 sources) Osteoporosis 12-27-2019 Chronic Other aftercare (1 source) Follow-up orthopedic assessment; Translations: [Encounter for other orthopedic aftercare] Episodic Other and ill-defined heart disease (9 sources) Left ventricular hypertrophy 04-27-2025 Chronic Other bone disease and musculoskeletal deformities (20 sources) Osteopenia 09-23-2022 Episodic Other circulatory disease (13 sources) Prehypertension 01-03-2025 Episodic Other connective tissue disease (20 sources) Fibromyalgia 04-23-2022 Episodic Other connective tissue disease (20 sources) Cramp in lower limb 06-24-2022 Episodic Other endocrine disorders (1 source) Disorder of adrenal gland; 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, unspecified] Chronic Other hematologic conditions (11 sources) Increased globulin 01-16-2025 Episodic Other liver diseases (11 sources) Alkaline phosphatase raised 01-16-2025 Episodic Other nervous system disorders (20 sources) Chronic back pain greater than three months duration 04-23-2022 Chronic Other nutritional; endocrine; and metabolic disorders (13 sources) Body mass index 30+ - obesity 01-03-2025 Chronic Other nutritional; endocrine; and metabolic disorders (2 sources) Body mass index (BMI) 30.0-30.9, adult; Translations: [Body mass index [BMI] 30.0-30.9, adult] Onset: 01-03-2025 Chronic Other screening for suspected conditions (not mental disorders or infectious disease) (10 sources) Endometrium thickened 02-07-2025 Chronic Other screening for suspected conditions (not mental disorders or infectious disease) (1 source) Encounter for screening mammogram for malignant neoplasm of breast; Translations: [Encounter for screening mammogram for malignant neoplasm of breast] Onset: 09-07-2025 Episodic Other upper respiratory disease (19 sources) Allergic rhinitis 06-23-2023 Chronic Other upper respiratory infections (7 sources) Sinusitis 01-05-2023 Chronic Otitis media and related conditions (20 sources) Retraction of tympanic membrane 06-23-2023 Episodic Residual codes; unclassified (14 sources) Postmenopausal state 07-01-2024 Episodic Respiratory failure; insufficiency; arrest (adult) (3 sources) Respiratory failure; insufficiency; arrest (adult) 06-26-2025 Thyroid disorders (13 sources) Hypothyroidism; Translations: [Hypothyroidism, unspecified] Chronic Unclassified (20 sources) Fracture of twelfth thoracic vertebra 09-23-2022 Unclassified (17 sources) Patient encounter status 08-10-2023 Comment on above: 08/15 modified ascvd risk 4.0% 07/16 ascvd risk 6.1% Unclassified (3 sources) Mild tricuspid valve regurgitation 06-26-2025 Urinary tract infections (6 sources) Cystitis 05-29-2025 Episodic Past or Other Problems Problem Classification Problem Date Documented Da te Episodic/Chronic Abdominal pain (20 sources) Lower abdominal pain; Translations: [Pain in pelvis] Onset: 01-03-2025 07-04-2024 Episodic Conditions associated with dizziness or vertigo (17 sources) Lightheadedness; Translations: [Benign paroxysmal positional vertigo] Onset: 03-27-2025 04-27-2025 Episodic Diabetes mellitus without complication (20 sources) Prediabetes; Translations: [Prediabetes] Onset: 01-03-2025 06-24-2022 Episodic Genitourinary symptoms and ill-defined conditions (2 sources) Dysuria; Translations: [Dysuria] Onset: 05-29-2025 Episodic Other circulatory disease (2 sources) Elevated blood-pressure reading, without diagnosis of hypertension; Translations: [Elevated blood-pressure reading, without diagnosis of hypertension] Onset: 01-03-2025 Episodic Other upper respiratory disease (2 sources) Nasal congestion; Translations: [Nasal congestion] Onset: 03-21-2025 Episodic Other upper respiratory infections (4 sources) Acute maxillary sinusitis; Translations: [Acute pharyngitis, unspecified] Onset: 03-21-2025 10-29-2022 Episodic Results Test Name Value Interpretation Reference Range Facility FT3on 08-24-2025 Free T3 [Mass/Vol] 2.93 pg/mL Normal 2.30-4.00 [facility] Comment on above: Performed By: #### P NATALIE, E2, TESTO #### [place] [address] #### TSH, FT4, FT3 #### [address] [address] FT4on 08-24-2025 Free T4 [Mass/Vol] 0.91 ng/dL Normal 0.76-1.46 [facility] Comment on above: Performed By: #### P NATALIE, E2, TESTO #### [address] [address] #### TSH, FT4, FT3 #### [address] [address] LABORATORYOrdered By: SYSTEM SYSTEM on 08-24-2025 Free T3 [Mass/Vol] 2.93 pg/mL Normal 2.30 - 4. 00 pg/mL AO ADM SS Free T4 [Mass/Vol] 0.91 ng/dL Normal 0.76 - 1. 46 ng/dL AO ADM SS TSH Qn 0.10 m[IU]/L Low 0.36 - 3.74 mcIU/mL AO ADM SS TSHon 08-24-2025 TSH Qn 0.10 m[IU]/L Low 0.36-3.74 [facility] Comment on above: Performed By: #### P NATALIE, E2, TESTO #### [place] [address] #### TSH, FT4, FT3 #### [address] [address] Maxime 07-11-2025 TSI <0.10 Normal 0.00-0.55 [facility] Comment on above: Result Comment: Perf ormed At: [facility] [address] [id number] Da Mclaughlin MD Ph:[phone] Performed By: #### 0 [id number], MCRSO #### [address] [address] #### [id number], [id number] #### [address] [address] DHEASon 07-08-2025 DHEA-SO4 214.58 mcg/dL Normal 25.90-460.20 [facility] Comment on above: Result Comment: No te - New Reference Range in effect 20 Performed By: #### 0 [id number], MCRSO #### [place] [address] #### [id number], [id number] #### [address] [address] E2on 07-08-2025 Estradiol Level 87.55 pg/mL Normal [facility] Comment on above: Result Comment: Adult Female E2 Reference Ranges: Follicular phase 19.5 - 144.2 pg/mL Midcycle 63.9 - 356.7 pg/mL Luteal phase 55.8 - 214.2 pg/mL Post menopausal 0 - 33.2 pg/mL Performed By: #### 0 [id number], MCRSO #### [place] [address] #### [id number], [id number] #### [address] [address] FT3on 07-08-2025 Free T3 [Mass/Vol] 2.99 pg/mL Normal 2.30-4.00 [facility] Comment on above: Performed By: #### 0 [id number], [facility] #### [place] [address] #### [id number], [id number] #### [address] [address] FT4on 07-08-2025 Free T4 [Mass/Vol] 0.99 ng/dL Normal 0.76-1.46 [facility] Comment on above: Performed By: #### 0 [id number], MCRSO #### [place] [address] #### [id number], [id number] #### [address] [address] LABORATORYOrdered By: SYSTEM SYSTEM on 07-08-2025 25-hydroxyvitamin D3 [Mass/Vol] 89.3 ng/mL Invalid Interpretation Code AO ADM SS Comment on above: Interpretive Data: I nterpretive Values Based on Total 25(OH) Vitamin D: Deficient <20 ng/mL Insufficient 20 - <30 ng/mL Sufficient 30-100 ng/mL DHEA-S [Mass/Vol] 214.58 ug/dL Normal 25.90 - 460.20 mcg/dL [facility] Comment on above: Interpretive Data: * *Note - New Reference Range in effect 20 E2 [Mass/Vol] 87.55 pg/mL Invalid Interpretation Code [facility] Comment on above: Interpretive Data: Adult Female E2 Reference Ranges: Follicular phase 19.5 - 144.2 pg/mL Midcycle 63.9 - 356.7 pg/mL Luteal phase 55.8 - 214.2 pg/mL Post menopausal 0 - 33.2 pg/mL Progesterone [Mass/Vol] 53.9 ng/mL Invalid Interpretation Code [facility] Comment on above: Interpretive Data: A dult Female Progesterone Reference Ranges: Follicular phase <0.21 - 1.40 ng/mL Luteal phase 3.34 - 25.56 ng/mL Mid-Luteal phase 4.44 - 28.03 ng/mL Postmenopausal <0.21 - 0.73 ng/ml Female: First trimester 11.22 - 90.00 ng/ml Second trimester 25.55 - 89.40 ng/ml Third trimester 48.40 - 422.50 ng/ml Testosterone [Mass/Vol] 39.76 ng/dL Invalid Interpretation Code [facility] Comment on above: Interpretive Data: N ormal Reference Ranges for Females: Female Premenopause Deq62-649.01-47.94 ng/dL Female Postmenopause Ebk46-46<7.00-45.62 ng/dL Free T3 [Mass/Vol] 2.99 pg/mL Normal 2.30 - 4. 00 pg/mL ADM SS Free T4 [Mass/Vol] 0.99 ng/dL Normal 0.76 - 1. 46 ng/dL AO ADM SS TSH Qn 0.03 m[IU]/L Low 0.36 - 3.74 mcIU/mL AO ADM SS PROGon 07-08-2025 Progesterone Level 53.9 ng/mL Normal [facility] Comment on above: Result Comment: Adul t Female Progesterone Reference Ranges: Follicular phase <0.21 - 1.40 ng/mL Luteal phase 3.34 - 25.56 ng/mL Mid-Luteal phase 4.44 - 28.03 ng/mL Postmenopausal <0.21 - 0.73 ng/ml Female: First trimester 11.22 - 90.00 ng/ml Second trimester 25.55 - 89.40 ng/ml Third trimester 48.40 - 422.50 ng/ml Performed By: #### 0 [id number], MCRSO #### [place] [address] #### [id number], [id number] #### [address] [address] TESTOon 07-08-2025 Testosterone Lvl 39.76 ng/dL Normal [facility] Comment on above: Result Comment: Norm al Reference Ranges for Females: Female Premenopause Age 21-60 9.01-47.94 ng/dL Female Postmenopause Age 45-89 <7.00-45.62 ng/dL Performed By: #### 0 [id number], [facility] #### [place] [address] #### [id number], [id number] #### [address] [address] TSHon 07-08-2025 TSH Qn 0.03 m[IU]/L Low 0.36-3.74 [facility] Comment on above: Performed By: #### 0 22517, MCRSO #### [place] [address] #### [id number], [id number] #### [address] [address] VIDHon 07-08-2025 Vit. D 25-Hydroxy 89.3 ng/mL Normal [facility] Comment on above: Result Comment: Inte rpretive Values Based on Total 25(OH) Vitamin D: Deficient <20 ng/mL Insufficient 20 - <30 ng/mL Sufficient 30-100 ng/mL Performed By: #### 0 08633, MCRSO #### [place] [address] #### [id number], [id number] #### [address] [address] No Panel Informationon 05-29 Culture Urine >100,000 cfu/ml Multiple bacterial morphotypes present. Probable Contamination. Suggest recollection if clinically indicated. [facility] MRI BRAIN W/ + W/O CONTRASTo n 05-19-2025 MRI BRAIN W/ + W/O CONTRAST ORIGINAL EXAMINATION: MRI OF THE BRAIN WITHOUT AND WITH CONTRAST05/18/2025 2:07 pm TECHNIQUE: Multiplanar multisequence MRI of the head/brain was performed without and with the administration of intravenous contrast. COMPARISON: None HISTORY: ORDERING SYSTEM PROVIDED HISTORY: Reason for Exam: LIGHTHEADEDNESS FINDINGS: Parenchyma: No acute hemorrhage, infarction, mass, or abnormal enhancement is seen. There are no space occupying intra-axial masses or extra-axial fluid collections. There are no hemorrhagic blood products. Minimal T2 FLAIR hyperintensity in the periventricular white matter may represent mild chronic microvascular angiopathy. Ventricles: No ventricular enlargement or ventricular effacement. Orbits: No acute abnormalities. Major intracranial flow voids: Preserved. Paranasal sinuses: Predominantly clear. Mastoids and middle ears: There is mild right mastoid disease. Bones: Mild degenerative changes of the spine. No acute osseous abnormalities. Extracranial soft tissues: Unremarkable. IMPRESSION: No acute intracranial abnormality. I have personally reviewed the images of this examination and agree with the resident's findings and interpretation. Interpreted by: Natanael Hunt MD Preliminary Report By: Frank Wagner Electronically signed By Natanael Hunt MD Dictated Date: 05/19/2025 10:49:26 AM Prelim Date: 05/19/2025 11:44:26 AM Sign Date: 05/19/2025 11:44:26 AM Ordering Provider: JOYCE LYNN Interpreted by: Natanael Hunt MD Preliminary Report By: Frank Wagner Electronically signed By Natanael Hunt MD Dictated Date: 05/19/2025 10:49:26 AM Prelim Date: 05/19/2025 11:44:26 AM Sign Date: 05/19/2025 11:44:26 AM Ordering Provider: JOYCE LYNN Normal [facility] No Panel Informationon 03-21 Culture Throat Normal throat tad present Sensitivity Testing: Not Indicated [facility] [id number] 03-13-2025 Reverse T3 19.5 ng/dL Normal 9.2-24.1 [facility] Comment on above: Result Comment: This test was developed and its performance characteristics determined by [employer]. It has not been cleared or approved by the Food and Drug Administration. Performed At: [address] [id number] Da Mclaughlin MD Ph:[phone] Performed By: #### 0 14781, [facility] #### [place] [address] #### [id number], [id number] #### [address] [address] .Thyroglobulin by TOY [id number] on 03-10-2025 Thyroglob TOY 2.8 ng/mL Normal 1.5-38.5 [facility] Comment on above: Result Comment: According to the National Academy of Clinical Biochemistry, the reference interval for Thyroglobulin (TG) should be related to euthyroid patients and not for patients who underwent thyroidectomy. TG reference intervals for these patients depend on the residual mass of the thyroid tissue left after surgery. Establishing a post-operative baseline is recommended. The assay limit of quantitation is 0.1 ng/mL Thyroglobulin measured by Ángel Haughton Immunometric Assay Performed At: [facility] [id number] Nallely Dotson PhD Ph:[phone] Performed By: #### 0 53777, [facility] #### [place] [address] #### [id number], 385192 #### [address] [address] THYRORFon 03-10-2025 Thyroglob Ab <1.0 Normal 0.0-0.9 [facility] Comment on above: Result Comment: Thyr oglobulin Antibody measured by Ángel Aly Methodology It should be noted that the presence of thyroglobulin antibodies may not be pathogenic nor diagnostic, especially at very low levels. The assay insulator technician has found that four percent of individuals without evidence of thyroid disease or autoimmunity will have positive TgAb levels up to 4 IU/mL. Performed At: [facility] [address], [place] [id number] Nallely Dotson PhD Ph:[phone] Performed By: #### 0 58669, [facility] #### [place] [address] #### 035331, 222722 #### [address] [address] .GFRon 03-08-2025 Estimated Glomerular Filtration Rate 84 ml/min/1.73sqm Normal [facility] Comment on above: Result Comment: Stages of Chronic Kidney Disease (CKD) Stage Description eGFR(ml/min/1.73 sq.m.) CKD 1 Normal kidney function or >=90 normal kindney function with possible kidney damage (ex. Proteinuria) CKD 2 Kidney damage with mild loss 60-89 of kidney function CKD 3a Mild to moderate loss of kidney 45-59 function CKD 3b Moderate to severe loss of 30-44 of kindey function CKD 4 Severe loss of kidney function 15-29 CKD 5 Kidney failure <15 Note: (go live 2024) the eGFR calculation was updated to the 2020 CKD-EPI creatinine equation without a race factor to calculate the eGFR results. Performed By: #### 0 99969, [facility] #### [place] [address] #### [id number], 611882 #### [address] [address] CMPon 03-08-2025 Albumin Level 3.6 G/dL Normal 3.4-4.8 [facility] Comment on above: Performed By: #### 0 93686, [facility] #### [place] [address] #### 273206, 208961 #### [address] [address] Albumin/Globulin [Mass ratio] 0.9 {ratio} Low 1.1-2.5 [facility] Comment on above: Performed By: #### 0 91050, [facility] #### [place] [address] #### 939826, 280127 #### [address] [address] ALP [Catalytic activity/Vol] 105 U/L Normal 40-135 [facility] Comment on above: Performed By: #### 0 18762, [facility] #### [place] [address] #### 817812, 894241 #### [place] [id number] ALT [Catalytic activity/Vol] 20 U/L Normal 14-59 [facility] Comment on above: Performed By: #### 0 26812, [facility] #### [place] [address] #### 488101, 171977 #### [place] [id number] AST [Catalytic activity/Vol] 17 U/L Normal 10-40 [facility] Comment on above: Performed By: #### 0 61454, [facility] #### [place] [address] #### 426667, 014546 #### [address] [address] Bili Total 0.4 mg/dL Normal 0.2-1.0 [facility] Comment on above: Result Comment: Use of this assay is not recommended for patients undergoing treatment with eltrombopag due to the potential for falsely elevated results. Performed By: #### 0 66069, [facility] #### [place] [address] #### [id number], 867749 #### [address] [address] BUN/Creatinine Ratio 16 ratio Normal 7-27 [facility] Comment on above: Performed By: #### 0 30019, [facility] #### [place] [address] #### 374666, 498628 #### [address] [address] Calcium [Mass/Vol] 8.6 mg/dL Normal 8.4-10.2 [facility] Comment on above: Performed By: #### 0 22177, [facility] #### [place] [address] #### 233914, 340535 #### [address] [address] Chloride [Moles/Vol] 106 mmol/L Normal 98-107 [facility] Comment on above: Performed By: #### 0 22118, [facility] #### [place] [address] #### 149424, 677258 #### [place] [address] CO2 [Moles/Vol] 28 mmol/L Normal 23-31 [facility] Comment on above: Performed By: #### 0 04972, [facility] #### [place] [address] #### 260673, 653833 #### [place] [address] Creatinine [Mass/Vol] 0.77 mg/dL Normal 0.55-1.02 [facility] Comment on above: Result Comment: Test ing performed on Siemens Dimension EXL analyzer using a modified kinetic Linda technique. Performed By: #### 0 88639, [facility] #### [place] [address] #### 518813, 818611 #### [place] [address] Electrolyte Balance 6.0 mEq/L Normal 4.0-15.0 [facility] Comment on above: Performed By: #### 0 55016, [facility] #### [place] [address] #### 759665, 721344 #### [place] [address] Globulin 3.8 G/dL Normal 1.5-3.8 [facility] Comment on above: Performed By: #### 0 14514, [facility] #### [place] [address] #### 087456, 987688 #### [address] [address] Glucose [Mass/Vol] 95 mg/dL Normal 80-115 [facility] Comment on above: Performed By: #### 0 72392, [facility] #### [place] [address] #### 658636, 945891 #### [address] [address] Potassium [Moles/Vol] 3.9 mmol/L Normal 3.5-5.1 [facility] Comment on above: Performed By: #### 0 10358, [facility] #### [place] [address] #### 111834, 329251 #### [address] [address] Sodium [Moles/Vol] 140 mmol/L Normal 136-145 [facility] Comment on above: Performed By: #### 0 54416, [facility] #### [place] [address] #### 052042, 679817 #### [address] [address] Total Protein 7.4 G/dL Normal 6.4-8.2 [facility] Comment on above: Performed By: #### 0 06738, [facility] #### [place] [address] #### 693396, 628262 #### [address] [address] Urea nitrogen [Mass/Vol] 12 mg/dL Normal 7-18 [facility] Comment on above: Performed By: #### 0 16681, [facility] #### [place] [address] #### 344864, 417349 #### [address] [address] E2on 03-08-2025 Estradiol Level 48.28 pg/mL Normal [facility] Comment on above: Result Comment: No te - New Reference Range in effect 20 Adult Female E2 Reference Ranges: Follicular phase 19.5 - 144.2 pg/mL Midcycle 63.9 - 356.7 pg/mL Luteal phase 55.8 - 214.2 pg/mL Post menopausal 0 - 33.2 pg/mL Performed By: #### P NATALIE, E2, TESTO #### [place] [address] #### TSH, FT4, FT3 #### [place] [id number] FT3on 03-08-2025 Free T3 [Mass/Vol] 4.15 pg/mL High 2.30-4.00 [facility] Comment on above: Performed By: #### P NATALIE, E2, TESTO #### [place] [address] #### TSH, FT4, FT3 #### [place] [address] FT4on 03-08-2025 Free T4 [Mass/Vol] 0.95 ng/dL Normal 0.76-1.46 [facility] Comment on above: Performed By: #### P NATALIE, E2, TESTO #### [place] [address] #### TSH, FT4, FT3 #### [address] [address] PROGon 03-08-2025 Progesterone Level 20.1 ng/mL Normal [facility] Comment on above: Result Comment: Adul t Female Progesterone Reference Ranges: Follicular phase <0.21 - 1.40 ng/mL Luteal phase 3.34 - 25.56 ng/mL Mid-Luteal phase 4.44 - 28.03 ng/mL Postmenopausal <0.21 - 0.73 ng/ml Female: First trimester 11.22 - 90.00 ng/ml Second trimester 25.55 - 89.40 ng/ml Third trimester 48.40 - 422.50 ng/ml Performed By: #### P NATALIE, E2, TESTO #### [place] [address] #### TSH, FT4, FT3 #### [address] [address] TESTOon 03-08-2025 Testosterone Lvl 51.68 ng/dL Normal [facility] Comment on above: Result Comment: Norm al Reference Ranges for Females: Female Premenopause Age 21-60 9.01-47.94 ng/dL Female Postmenopause Age 45-89 <7.00-45.62 ng/dL Performed By: #### P NATALIE, E2, TESTO #### [place] [address] #### TSH, FT4, FT3 #### [place] [address] TSHon 03-08-2025 TSH Qn 0.08 m[IU]/L Low 0.36-3.74 [facility] Comment on above: Performed By: #### P NATALIE, E2, TESTO #### [place] [address] #### TSH, FT4, FT3 #### [place] [address] aTPOon 03-08-2025 anti-Thyroid Peroxidase <28 Normal 0-60 [facility] Comment on above: Result Comment: No te - New Reference Range in effect 20 Performed By: #### 0 32339, [facility] #### [place] [address] #### 739264, 013079 #### [place] [address] CT ABD/PELVIS W/ IV CONTRAST ONLYon 01-17-2025 CT ABD/PELVIS W/ IV CONTRAST ONLY ORIGINAL EXAMINATION: CT OF THE ABDOMEN AND PELVIS WITH CONTRAST 01/16/2025 9:53 am TECHNIQUE: CT of the abdomen and pelvis was performed with the administration of intravenous contrast. Multiplanar reformatted images are provided for review. Automated exposure control, iterative reconstruction, and/or weight based adjustment of the mA/kV was utilized to reduce the radiation dose to as low as reasonably achievable. COMPARISON: None HISTORY: ORDERING SYSTEM PROVIDED HISTORY: Reason for Exam: suprapubic and pelvic pain tender pain on physical exam bilateral lower abdomen/pelvis. FINDINGS: Lower Chest: Lung bases are unremarkable. Hepatobiliary: There is no focal hepatic mass. The gallbladder is unremarkable. There is no intrahepatic or extrahepatic biliary ductal dilatation. Spleen: The spleen is unremarkable. Pancreas: The pancreas is unremarkable. Adrenal glands: The adrenal glands are unremarkable. Kidneys and Urinary Tract: There is no evidence of urinary tract calculus. Cyst. No hydronephrosis. Urinary bladder is unremarkable. Reproductive organs are unremarkable. Peritoneum/Retroperi toneum: The peritoneum and retroperitoneum are unremarkable. There is no ascites. GI/Bowel: There is no bowel wall thickening or obstruction. There is a small hiatal hernia. There is a 1 cm right upper renal pole Lymph nodes: Lymph nodes are unremarkable. Vasculature: Aorta and iliac vessels are normal in caliber. Bones: No aggressive osseous lesion. There is a large Schmorl's node at the superior endplate of T12. There is degenerative change of the lumbar spine, predominantly at L5/S1. Soft tissues: There is a small fat containing umbilical hernia. The other soft tissues including abdominopelvic wall are unremarkable. IMPRESSION: 1. No acute intra-abdominal or pelvic abnormality. 2. Small hiatal hernia. 3. Right renal cyst. Interpreted by: Freida Quintanilla Preliminary Report By: Freida Quintanilla Electronically signed By Freida Quintanilla Dictated Date: 01/17/2025 11:21:05 AM Prelim Date: 01/17/2025 11:27:13 AM Sign Date: 01/17/2025 11:27:13 AM Ordering Provider: JOYCE Meza [facility] .Auto Diffon 01-16-2025 Basophil, Absolute 0.0 10 3/mcL Normal 0.0-0.2 [facility] Comment on above: Performed By: #### 0 80561, [facility] #### [place] [address] #### 480888, 377545 #### [address] [address] Basophils/100 WBC (Bld) 0.6 % Normal 0.0-2.5 [facility] Comment on above: Performed By: #### 0 60395, [facility] #### [place] [address] #### 685819, 112094 #### [address] [address] Eosinophil, Absolute 0.0 10 3/mcL Normal 0.0-0.7 [facility] Comment on above: Performed By: #### 0 93985, [facility] #### [place] [address] #### 311334, 647725 #### [address] [address] Eosinophils/100 WBC (Bld) 0.9 % Normal 0.0-7.0 [facility] Comment on above: Performed By: #### 0 44446, [facility] #### [place] [address] #### 198415, 338927 #### [address] [address] Lymphocyte, Absolute 1.4 10 3/mcL Normal 0.9-4.3 [facility] Comment on above: Performed By: #### 0 42763, [facility] #### [place] [address] #### 982729, 927917 #### [address] [address] Lymphocytes/100 WBC (Bld) 28.4 % Normal 20.0-40.0 [facility] Comment on above: Performed By: #### 0 69900, [facility] #### [place] [address] #### 976692, 297963 #### [address] [address] Monocyte, Absolute 0.6 10 3/mcL Normal 0.1-1.4 [facility] Comment on above: Performed By: #### 0 51269, [facility] #### [place] [address] #### 215490, 448265 #### [address] [address] Monocytes/100 WBC (Bld) 12.7 % Normal 2.0-13.0 [facility] Comment on above: Performed By: #### 0 07373, [facility] #### [place] [address] #### 993356, 818665 #### [address] [address] Neutrophils/100 WBC (Bld) 57.4 % Normal 50.0-75.0 [facility] Comment on above: Performed By: #### 0 32582, [facility] #### [place] [address] #### 381441, 842750 #### [address] [address] .GFRon 01-16-2025 Estimated Glomerular Filtration Rate 86 ml/min/1.73sqm Normal [facility] Comment on above: Result Comment: Stages of Chronic Kidney Disease (CKD) Stage Description eGFR(ml/min/1.73 sq.m.) CKD 1 Normal kidney function or >=90 normal kindney function with possible kidney damage (ex. Proteinuria) CKD 2 Kidney damage with mild loss 60-89 of kidney function CKD 3a Mild to moderate loss of kidney 45-59 function CKD 3b Moderate to severe loss of 30-44 of kindey function CKD 4 Severe loss of kidney function 15-29 CKD 5 Kidney failure <15 Note: (go live 2024) the eGFR calculation was updated to the 2020 CKD-EPI creatinine equation without a race factor to calculate the eGFR results. Performed By: #### 0 97819, [facility] #### [place] [address] #### 276565, 132172 #### [place] [address] .NEUABSon 01-16-2025 Neutrophil, Absolute 2.8 10 3/mcL Normal 2.3-8.1 [facility] Comment on above: Performed By: #### 0 46035, [facility] #### [place] [address] #### 634698, 829874 #### [place] [address] CBCon 01-16-2025 Erythrocyte distribution width (RBC) [Ratio] 13.3 % Normal 11.5-15.5 [facility] Comment on above: Performed By: #### 0 89144, [facility] #### [place] [address] #### 366626, 926326 #### [place] [address] Hematocrit (Bld) [Volume fraction] 42.6 % Normal 34.0-46.0 [facility] Comment on above: Performed By: #### 0 02611, [facility] #### [place] [address] #### 566572, 533117 #### [place] [address] Hgb 14.3 G/dL Normal 12.0-16.0 [facility] Comment on above: Performed By: #### 0 56303, [facility] #### [place] [address] #### 771889, 035382 #### [place] [address]39897 MCH (RBC) [Entitic mass] 30.8 pg Normal 27.0-33.0 [facility] Comment on above: Performed By: #### 0 99628, [facility] #### [place] [address] #### 941431, 702044 #### [place] [address] MCHC 33.6 G/dL Normal 32.0-36.0 [facility] Comment on above: Performed By: #### 0 75965, [facility] #### [place] [address] #### 736163, 485121 #### [address] [address] MCV (RBC) [Entitic vol] 91.6 fL Normal 80.0-99.0 [facility] Comment on above: Performed By: #### 0 32123, [facility] #### [place] [address] #### 227340, 961772 #### [address] [address] Platelet 266 10 3/mcL Normal 150-450 [facility] Comment on above: Performed By: #### 0 33385, M[facility] #### [place] [address] #### 507060, 641081 #### [address] [address] Platelet mean volume (Bld) [Entitic vol] 7.5 fL Normal 6.6-10.5 [facility] Comment on above: Performed By: #### 0 25282, MCR[facility] #### [place] [address] #### 445857, 145614 #### [address] [address] RBC 4.65 10 6/mcL Normal 4.10-5.30 [facility] Comment on above: Performed By: #### 0 44568, MCRSO #### [place] [address] #### 921167, 331015 #### [address] [address] WBC 4.8 10 3/mcL Normal 4.5-10.8 [facility] Comment on above: Performed By: #### 0 48077, MCRSO #### [place] [address] #### 522170, 631561 #### [address] [address] CMPon 01-16-2025 Calcium [Mass/Vol] 9.0 mg/dL Normal 8.4-10.2 [facility] Comment on above: Performed By: #### 0 84647, M[facility] #### [place] [address] #### 555400, 867147 #### [address] [address] Albumin Level 3.7 G/dL Normal 3.4-4.8 [facility] Comment on above: Performed By: #### 0 75045, MCR[facility] #### [place] [address] #### 398697, 145725 #### [place] [id number] Albumin/Globulin [Mass ratio] 0.9 {ratio} Low 1.1-2.5 [facility] Comment on above: Performed By: #### 0 61826, M[facility] #### [place] [address] #### 277510, 294902 #### [address] [address] ALP [Catalytic activity/Vol] 136 U/L High 40-135 [facility] Comment on above: Performed By: #### 0 42934, MCR[facility] #### [place] [address] #### 244180, 850980 #### [address] [address] ALT [Catalytic activity/Vol] 25 U/L Normal 14-59 [facility] Comment on above: Performed By: #### 0 75690, MCR[facility] #### [place] [address] #### 631897, 616971 #### [place] [address] [place], [place] [address] AST [Catalytic activity/Vol] 22 U/L Normal 10-40 [facility] Comment on above: Performed By: #### 0 05676, MCR[facility] #### [place] [address] #### 997828, 754700 #### [address] [address] Bili Total 0.4 mg/dL Normal 0.2-1.0 [facility] Comment on above: Result Comment: Use of this assay is not recommended for patients undergoing treatment with eltrombopag due to the potential for falsely elevated results. Performed By: #### 0 73100, M[facility] #### [place] [address] #### 602755, 661169 #### [address] [address] BUN/Creatinine Ratio 16 ratio Normal 7-27 [facility] Comment on above: Performed By: #### 0 22754, MCRSO #### [place] [address] #### 554219, 041318 #### [address] [address] Chloride [Moles/Vol] 100 mmol/L Normal 98-107 [facility] Comment on above: Performed By: #### 0 68924, MCRSO #### [place] [address] #### 850852, 728601 #### [address] [address] CO2 [Moles/Vol] 29 mmol/L Normal 23-31 [facility] Comment on above: Performed By: #### 0 90833, MCRSO #### [place] [address] #### 910021, 183306 #### [address] [address] Creatinine [Mass/Vol] 0.76 mg/dL Normal 0.55-1.02 [facility] Comment on above: Result Comment: Test ing performed on Siemens Dimension EXL analyzer using a modified kinetic Linda technique. Performed By: #### 0 33361, M[facility] #### [place] [address] #### 896471, 672035 #### [address] [address] Electrolyte Balance 7.0 mEq/L Normal 4.0-15.0 [facility] Comment on above: Performed By: #### 0 43018, MCRSO #### [place] [address] #### 494745, 487612 #### [address] [address] Globulin 4.2 G/dL High 1.5-3.8 [facility] Comment on above: Performed By: #### 0 15584, MCRSO #### [place] [address] #### 100136, 086442 #### [address] [address] Glucose [Mass/Vol] 112 mg/dL Normal 80-115 [facility] Comment on above: Performed By: #### 0 50131, MCRSO #### [place] [address] #### 976258, 084456 #### [address] [address] Potassium [Moles/Vol] 3.5 mmol/L Normal 3.5-5.1 [facility] Comment on above: Performed By: #### 0 76123, MCRSO #### [place] [address] #### 294604, 776477 #### [address] [address] Sodium [Moles/Vol] 136 mmol/L Normal 136-145 [facility] Comment on above: Performed By: #### 0 46086, MCRSO #### [place] [address] #### 125159, 906941 #### [address] [address] Total Protein 7.9 G/dL Normal 6.4-8.2 [facility] Comment on above: Performed By: #### 0 49519, MCRSO #### [place] [address] #### 420741, 902382 #### [place] [address] [place], [place] [address] Urea nitrogen [Mass/Vol] 12 mg/dL Normal 7-18 [facility] Comment on above: Performed By: #### 0 10414, MCRSO #### [place] [address] #### 567318, 886411 #### [place] [address] LABORATORYOrdered By: SYSTEM SYSTEM on 01-16-2025 Albumin BCP dye [Mass/Vol] 3.7 G/dL Normal 3.4 - 4.8 G/dL AO ADM SS Albumin/Globulin [Mass ratio] 0.9 {ratio} Low 1.1 - 2.5 ratio AO ADM SS ALP [Catalytic activity/Vol] 136 U/L High 40 - 135 U/L AO ADM SS ALT With P-5'-P [Catalytic activity/Vol] 25 U/L Normal 14 - 59 U/L AO ADM SS AST With P-5'-P [Catalytic activity/Vol] 22 U/L Normal 10 - 40 U/L AO ADM SS Basophils (Bld) [#/Vol] 0.0 103/mcL Normal 0.0 - 0.2 10^3/mcL AO Workflow SS Basophils/100 WBC (Bld) 0.6 % Normal 0.0 - 2.5 % AO Workflow SS Bilirubin [Mass/Vol] 0.4 mg/dL Normal 0.2 - 1 .0 mg/dL AO ADM SS Comment on above: Interpretive Data: U se of this assay is not recommended for patients undergoing treatment with eltrombopag due to the potential for falsely elevated results. Calcium [Mass/Vol] 9.0 mg/dL Normal 8.4 - 10. 2 mg/dL AO ADM SS Chloride [Moles/Vol] 100 mmol/L Normal 98 - 10 7 mmol/L AO ADM SS CO2 [Moles/Vol] 29 mmol/L Normal 23 - 31 mmol/L AO ADM SS Creatinine [Mass/Vol] 0.76 mg/dL Normal 0.55 - 1.02 mg/dL AO ADM SS Comment on above: Interpretive Data: T esting performed on Siemens Dimension EXL analyzer using a modified kinetic Linda technique. Electrolyte Balance 7.0 mEq/L Normal 4.0 - 15 .0 mEq/L AO ADM SS Eosinophil, Absolute 0.0 103/mcL Normal 0.0 - 0 .7 10^3/mcL AO Workflow SS Eosinophils/100 WBC (Bld) 0.9 % Normal 0.0 - 7.0 % AO Workflow SS Erythrocyte distribution width (RBC) [Ratio] 13.3 % Normal 11.5 - 15.5 % AO Workflow SS Estimated Glomerular Filtration Rate 86 ml/min/1.73sqm Invalid Interpretation Code AO Chemistry S Comment on above: Interpretive Data: Stages of Chronic Kidney Disease (CKD) Stage Description eGFR(ml/min/1.73 sq.m.) CKD 1 Normal kidney function or >=90 normal kindney function with possible kidney damage (ex. Proteinuria) CKD 2 Kidney damage with mild loss 60-89 of kidney function CKD 3a Mild to moderate loss of kidney 45-59 function CKD 3b Moderate to severe loss of 30-44 of kindey function CKD 4 Severe loss of kidney function 15-29 CKD 5 Kidney failure <15 Note: (go live 2024) the eGFR calculation was updated to the 2020 CKD-EPI creatinine equation without a race factor to calculate the eGFR results. Globulin 4.2 G/dL High 1.5 - 3.8 G/dL AO ADM SS Glucose [Mass/Vol] 112 mg/dL Normal 80 - 115 mg/dL AO ADM SS Hematocrit (Bld) [Volume fraction] 42.6 % Normal 34.0 - 46.0 % AO Workflow SS Hemoglobin (Bld) [Mass/Vol] 14.3 G/dL Normal 12.0 - 16.0 G/dL AO Workflow SS Lipase [Catalytic activity/Vol] 38 U/L Normal 16 - 77 U/L AO ADM SS Lymphocytes (Bld) [#/Vol] 1.4 103/mcL Normal 0.9 - 4.3 10^3/mcL AO Workflow SS Lymphocytes/100 WBC (Bld) 28.4 % Normal 20.0 - 40.0 % AO Workflow SS MCH (RBC) [Entitic mass] 30.8 pg Normal 27.0 - 33.0 pg AO Workflow SS MCHC 33.6 G/dL Normal 32.0 - 36.0 G/dL AO Workflow SS MCV (RBC) [Entitic vol] 91.6 fL Normal 80.0 - 99.0 fL AO Workflow SS Monocytes (Bld) [#/Vol] 0.6 103/mcL Normal 0.1 - 1.4 10^3/mcL AO Workflow SS Monocytes/100 WBC (Bld) 12.7 % Normal 2.0 - 13.0 % AO Workflow SS Neutrophils (Bld) [#/Vol] 2.8 103/mcL Normal 2.3 - 8.1 10^3/mcL AO Workflow SS Neutrophils/100 WBC (Bld) 57.4 % Normal 50.0 - 75.0 % AO Workflow SS Platelet mean volume (Bld) [Entitic vol] 7.5 fL Normal 6.6 - 10.5 fL AO Workflow SS Platelets (Bld) [#/Vol] 266 103/mcL Normal 150 - 450 10^3/mcL AO Workflow SS Potassium [Moles/Vol] 3.5 mmol/L Normal 3.5 - 5.1 mmol/L AO ADM SS Protein [Mass/Vol] 7.9 G/dL Normal 6.4 - 8.2 G/dL AO ADM SS RBC (Bld) [#/Vol] 4.65 106/mcL Normal 4.10 - 5.3 0 10^6/mcL AO Workflow SS Sodium [Moles/Vol] 136 mmol/L Normal 136 - 145 mmol/L AO ADM SS Urea nitrogen [Mass/Vol] 12 mg/dL Normal 7 - 18 mg/dL AO ADM SS Urea nitrogen/Creatinine [Mass ratio] 16 ratio Normal 7 - 27 ratio AO ADM SS WBC (Bld) [#/Vol] 4.8 103/mcL Normal 4.5 - 10.8 10^3/mcL AO Workflow SS LIPon 01-16-2025 Lipase Level 38 U/L Normal 16-77 [facility] Comment on above: Performed By: #### 0 05631, MCRSO #### [address] [address] #### [id number], [id number] #### [place] [address] [place], [place] [address] US PELVIS NON-OB W/TRANSVAGI NALon 01-16-2025 US PELVIS NON-OB W/TRANSVAGINAL ORIGINAL EXAMINATION: TRANSVAGINAL PELVIC ULTRASOUND 01/16/2025 TECHNIQUE: Transvaginal pelvic ultrasound was performed. COMPARISON: None HISTORY: ORDERING SYSTEM PROVIDED HISTORY: Reason for Exam: suprapubic and pelvic pain FINDINGS: Measurements: Uterus: 3.2 x 5.1 x 3.5 cm Endometrial stripe: 7.6 mm Right Ovary:1.5 x 0.9 x 0.9 Left Ovary: Not measured. Ultrasound Findings: Uterus: Uterus demonstrates multiple nabothian cysts. There is no discrete solid or cystic uterine mass. Endometrial stripe: Endometrium measures 7.6 mm slightly prominent for a postmenopausal female. Right Ovary: Right ovary is within normal limits. Left Ovary: Left ovary is not diagnostically imaged. Free Fluid: No evidence of free fluid. IMPRESSION: 1. Slightly prominent endometrial stripe for a postmenopausal female measuring 7.6 mm. Consider correlation with cytology as clinically required. 2. Multiple nabothian cysts. 3. Nonvisualization of the left ovary. Interpreted by: Donta Soto DO Preliminary Report By: Donta Soto DO Electronically signed By Donta Soto DO Dictated Date: 01/16/2025 4:01:22 PM Prelim Date: 01/16/2025 4:06:16 PM Sign Date: 01/16/2025 4:06:16 PM Ordering Provider: JOYCE LYNN Normal [facility] E2on 01-03-2025 Estradiol Level 53.75 pg/mL Normal [facility] Comment on above: Result Comment: No te - New Reference Range in effect 20 Adult Female E2 Reference Ranges: Follicular phase 19.5 - 144.2 pg/mL Midcycle 63.9 - 356.7 pg/mL Luteal phase 55.8 - 214.2 pg/mL Post menopausal 0 - 33.2 pg/mL Performed By: #### 0 [id number], [facility] #### [place] [address] #### [id number], [id number] #### [address] [address] FT3on 01-03-2025 Free T3 [Mass/Vol] 4.40 pg/mL High 2.30-4.00 [facility] Comment on above: Performed By: #### 0 [id number], [facility] #### [place] [address] #### [id number], [id number] #### [address] [address] FT4on 01-03-2025 Free T4 [Mass/Vol] 0.88 ng/dL Normal 0.76-1.46 [facility] Comment on above: Performed By: #### 0 [id number], [facility] #### [place] [address] #### [id number], [id number] #### [address] [address] LABORATORYOrdered By: SYSTEM SYSTEM on 01-03-2025 E2 [Mass/Vol] 53.75 pg/mL Invalid Interpretation Code [facility] Comment on above: Interpretive Data: * *Note - New Reference Range in effect 20 Adult Female E2 Reference Ranges: Follicular phase 19.5 - 144.2 pg/mL Midcycle 63.9 - 356.7 pg/mL Luteal phase 55.8 - 214.2 pg/mL Post menopausal 0 - 33.2 pg/mL Free T3 [Mass/Vol] 4.40 pg/mL High 2.30 - 4. 00 pg/mL AO ADM SS Free T4 [Mass/Vol] 0.88 ng/dL Normal 0.76 - 1. 46 ng/dL AO ADM SS Progesterone [Mass/Vol] 9.6 ng/mL Invalid Interpretation Code [facility] Comment on above: Interpretive Data: A dult Female Progesterone Reference Ranges: Follicular phase <0.21 - 1.40 ng/mL Luteal phase 3.34 - 25.56 ng/mL Mid-Luteal phase 4.44 - 28.03 ng/mL Postmenopausal <0.21 - 0.73 ng/ml Female: First trimester 11.22 - 90.00 ng/ml Second trimester 25.55 - 89.40 ng/ml Third trimester 48.40 - 422.50 ng/ml Testosterone [Mass/Vol] 50.92 ng/dL Invalid Interpretation Code AH ADM SS Comment on above: Interpretive Data: N ormal Reference Ranges for Females: Female Premenopause Qhs36-344.01-47.94 ng/dL Female Postmenopause Yhx29-91<7.00-45.62 ng/dL TSH Qn 0.10 m[IU]/L Low 0.36 - 3.74 mcIU/mL AO ADM SS No Panel Informationon 01-03 Culture Urine 10,000 - 50,000 cfu/ml Mixed growth consistent with normal urogenital tad. [facility] PROGon 01-03-2025 Progesterone Level 9.6 ng/mL Normal [facility] Comment on above: Result Comment: Adul t Female Progesterone Reference Ranges: Follicular phase <0.21 - 1.40 ng/mL Luteal phase 3.34 - 25.56 ng/mL Mid-Luteal phase 4.44 - 28.03 ng/mL Postmenopausal <0.21 - 0.73 ng/ml Female: First trimester 11.22 - 90.00 ng/ml Second trimester 25.55 - 89.40 ng/ml Third trimester 48.40 - 422.50 ng/ml Performed By: #### 0 [id number], [facility] #### [place] [address] #### [id number], [id number] #### [facility] [address] [place], [place] [address] TESTOon 01-03-2025 Testosterone Lvl 50.92 ng/dL Normal [facility] Comment on above: Result Comment: Norm al Reference Ranges for Females: Female Premenopause Age 21-60 9.01-47.94 ng/dL Female Postmenopause Age 45-89 <7.00-45.62 ng/dL Performed By: #### 0 [id number], [facility] #### [place] [address] #### [id number], [id number] #### [address] [address] TSHon 01-03-2025 TSH Qn 0.10 m[IU]/L Low 0.36-3.74 [facility] Comment on above: Performed By: #### 0 93256, [facility] #### [place] [address] #### [id number], [id number] #### [address] [address] FT3on 09-06-2024 Free T3 [Mass/Vol] 2.88 pg/mL Normal 2.30-4.00 [facility] Comment on above: Performed By: #### 0 [id number], [facility] #### [place] [address] #### [id number], [id number] #### [place] [address]39897 E2on 09-05-2024 Estradiol Level 19.81 pg/mL Normal [facility] Comment on above: Result Comment: No te - New Reference Range in effect 20 Adult Female E2 Reference Ranges: Follicular phase 19.5 - 144.2 pg/mL Midcycle 63.9 - 356.7 pg/mL Luteal phase 55.8 - 214.2 pg/mL Post menopausal 0 - 33.2 pg/mL Performed By: #### P NATALIE, E2, TESTO #### [place] [address] #### TSH, FT4, FT3 #### [address] [address] FT4on 09-05-2024 Free T4 [Mass/Vol] 0.97 ng/dL Normal 0.76-1.46 [facility] Comment on above: Performed By: #### P NATALIE, E2, TESTO #### [place] [address] #### TSH, FT4, FT3 #### [address] [address] LABORATORYOrdered By: SYSTEM SYSTEM on 09-05-2024 25-hydroxyvitamin D3 [Mass/Vol] 124.4 ng/mL Invalid Interpretation Code [facility] Comment on above: Interpretive Data: I nterpretive Values Based on Total 25(OH) Vitamin D: Deficient <20 ng/mL Insufficient 20 - <30 ng/mL Sufficient 30-100 ng/mL E2 [Mass/Vol] 19.81 pg/mL Invalid Interpretation Code [facility] Comment on above: Interpretive Data: * *Note - New Reference Range in effect 20 Adult Female E2 Reference Ranges: Follicular phase 19.5 - 144.2 pg/mL Midcycle 63.9 - 356.7 pg/mL Luteal phase 55.8 - 214.2 pg/mL Post menopausal 0 - 33.2 pg/mL Free T4 [Mass/Vol] 0.97 ng/dL Normal 0.76 - 1. 46 ng/dL AO [facility] Progesterone [Mass/Vol] 9.9 ng/mL Invalid Interpretation Code [facility] Comment on above: Interpretive Data: A dult Female Progesterone Reference Ranges: Follicular phase <0.21 - 1.40 ng/mL Luteal phase 3.34 - 25.56 ng/mL Mid-Luteal phase 4.44 - 28.03 ng/mL Postmenopausal <0.21 - 0.73 ng/ml Female: First trimester 11.22 - 90.00 ng/ml Second trimester 25.55 - 89.40 ng/ml Third trimester 48.40 - 422.50 ng/ml Testosterone [Mass/Vol] 232.47 ng/dL Invalid Interpretation Code [facility] Comment on above: Interpretive Data: N ormal Reference Ranges for Females: Female Premenopause Tsj01-752.01-47.94 ng/dL Female Postmenopause Mup74-74<7.00-45.62 ng/dL TSH Qn 0.07 m[IU]/L Low 0.36 - 3.74 mcIU/mL [facility] SS PROGon 09-05-2024 Progesterone Level 9.9 ng/mL Normal [facility] Comment on above: Result Comment: Adul t Female Progesterone Reference Ranges: Follicular phase <0.21 - 1.40 ng/mL Luteal phase 3.34 - 25.56 ng/mL Mid-Luteal phase 4.44 - 28.03 ng/mL Postmenopausal <0.21 - 0.73 ng/ml Female: First trimester 11.22 - 90.00 ng/ml Second trimester 25.55 - 89.40 ng/ml Third trimester 48.40 - 422.50 ng/ml Performed By: #### P NATALIE, E2, TESTO #### [place] [address] #### TSH, FT4, FT3 #### [place] [address] TESTOon 09-05-2024 Testosterone Lvl 232.47 ng/dL Normal [facility] Comment on above: Result Comment: Norm al Reference Ranges for Females: Female Premenopause Age 21-60 9.01-47.94 ng/dL Female Postmenopause Age 45-89 <7.00-45.62 ng/dL Performed By: #### P NATALIE, E2, TESTO #### [place] [address] #### TSH, FT4, FT3 #### [address] 09-05-2024 TSH Qn 0.07 m[IU]/L Low 0.36-3.74 [facility] Comment on above: Performed By: #### P NATALIE, E2, TESTO #### [place] [address] #### TSH, FT4, FT3 #### [place] [address] VIDHon 09-05-2024 Vit. D 25-Hydroxy 124.4 ng/mL Normal [facility] Comment on above: Result Comment: Inte rpretive Values Based on Total 25(OH) Vitamin D: Deficient <20 ng/mL Insufficient 20 - <30 ng/mL Sufficient 30-100 ng/mL Performed By: #### P NATALIE, E2, TESTO #### [place] [address] #### TSH, FT4, FT3 #### [place] 839897 LIPIDon 07-07-2024 Cholesterol [Mass/Vol] 147 mg/dL Normal 0-200 [facility] ([place]) Comment on above: Result Comment: Chol esterol Reference Interval: Less than 200 Desirable 200-239 Borderline high risk 240 and above High risk Performed By: #### T ESTO, DHEAS, E2, PROG #### [place] [address] #### FT4, FT3, TSH #### [address] [address] Cholesterol in HDL [Mass/Vol] 48 mg/dL Normal 40-60 [facility] ([place]) Comment on above: Performed By: #### T ESTO, DHEAS, E2, PROG #### [place] [address] #### FT4, FT3, TSH #### [address] [address] Cholesterol in LDL [Mass/Vol] 86 mg/dL Normal 0-130 [facility] ([place]) Comment on above: Performed By: #### T ESTO, DHEAS, E2, PROG #### [place] [address] #### FT4, FT3, TSH #### [address] [address] Triglyceride [Mass/Vol] 65 mg/dL Normal 0-150 [facility] ([place]) Comment on above: Result Comment: Trig lyceride Reference Interval: Less than 150 Normal 150-199 Borderline high risk 200-499 High risk 500 or higher Very high risk Performed By: #### T ESTO, DHEAS, E2, PROG #### [place] [address] #### FT4, FT3, TSH #### [address] [address] .GFRon 06-09-2024 GFR 87 ml/min/1.73sqm Normal [facility] ([place]) Comment on above: Result Comment: GFR Population mean for , Non- Americans Ages 20-29 = 116 mL/min/1.73 sq.m. Ages 30-39 = 107 mL/min/1.73 sq.m. Ages 40-49 = 99 mL/min/1.73 sq.m. Ages 50-59 = 93 mL/min/1.73 sq.m. Ages 60-69 = 85 mL/min/1.73 sq.m. Ages 70+ = 75 mL/min/1.73 sq.m. Chronic Kidney Disease: Less than 60 mL/min/1.73 square meters End Stage Renal Disease: Less than 15 mL/min/1.73 square meters Performed By: #### T ESTO, DHEAS, E2, PROG #### [address] [address] #### FT4, FT3, TSH #### [address] [address] GFR Non- 72 ml/min/1.73sqm Normal [facility] ([place]) Comment on above: Result Comment: GFR Population mean for , Non- Americans Ages 20-29 = 116 mL/min/1.73 sq.m. Ages 30-39 = 107 mL/min/1.73 sq.m. Ages 40-49 = 99 mL/min/1.73 sq.m. Ages 50-59 = 93 mL/min/1.73 sq.m. Ages 60-69 = 85 mL/min/1.73 sq.m. Ages 70+ = 75 mL/min/1.73 sq.m. Chronic Kidney Disease: Less than 60 mL/min/1.73 square meters End Stage Renal Disease: Less than 15 mL/min/1.73 square meters Performed By: #### T ESTO, DHEAS, E2, PROG #### [address] [address] #### FT4, FT3, TSH #### [address] [address] A1Con 06-09-2024 HbA1c (Bld) [Mass fraction] 5.8 % Normal 4.3-6.4 [facility] ([place]) Comment on above: Performed By: #### T ESTO, DHEAS, E2, PROG #### [place] [address] #### FT4, FT3, TSH #### [address] [address] [facility] 06-09-2024 Albumin Level 3.8 G/dL Normal 3.4-4.8 [facility] ([place]) Comment on above: Performed By: #### T ESTO, DHEAS, E2, PROG #### [place] [address] #### FT4, FT3, TSH #### [address] [address] Albumin/Globulin [Mass ratio] 1.0 {ratio} Low 1.1-2.5 [facility] ([place]) Comment on above: Performed By: #### T ESTO, DHEAS, E2, PROG #### [place] [address] #### FT4, FT3, TSH #### [address] [address] ALP [Catalytic activity/Vol] 110 U/L Normal 40-135 [facility] ([place]) Comment on above: Performed By: #### T ESTO, DHEAS, E2, PROG #### [place] [address] #### FT4, FT3, TSH #### [address] [address] ALT [Catalytic activity/Vol] 25 U/L Normal 14-59 [facility] ([place]) Comment on above: Performed By: #### T ESTO, DHEAS, E2, PROG #### [place] [address] #### FT4, FT3, TSH #### [address] [address] AST [Catalytic activity/Vol] 14 U/L Normal 10-40 [facility] ([place]) Comment on above: Performed By: #### T ESTO, DHEAS, E2, PROG #### [place] [address] #### FT4, FT3, TSH #### [address] [address] Bili Total 0.4 mg/dL Normal 0.2-1.0 [facility] ([place]) Comment on above: Result Comment: Use of this assay is not recommended for patients undergoing treatment with eltrombopag due to the potential for falsely elevated results. Performed By: #### T ESTO, DHEAS, E2, PROG #### [place] [address] #### FT4, FT3, TSH #### [address] [address] BUN/Creatinine Ratio 15 ratio Normal 7-27 Count includes the [facility] ([place]) Comment on above: Performed By: #### T ESTO, DHEAS, E2, PROG #### [place] [address] #### FT4, FT3, TSH #### [address] [address] Calcium [Mass/Vol] 9.5 mg/dL Normal 8.4-10.2 [facility] ([place]) Comment on above: Performed By: #### T ESTO, DHEAS, E2, PROG #### [place] [address] #### FT4, FT3, TSH #### [address] [address] Chloride [Moles/Vol] 103 mmol/L Normal 98-107 Count includes the [facility] ([place]) Comment on above: Performed By: #### T ESTO, DHEAS, E2, PROG #### [place] [address] #### FT4, FT3, TSH #### [address] [address] CO2 [Moles/Vol] 31 mmol/L Normal 23-31 [facility] ([place]) Comment on above: Performed By: #### T ESTO, DHEAS, E2, PROG #### [place] [address] #### FT4, FT3, TSH #### [address] [address] Creatinine [Mass/Vol] 0.80 mg/dL Normal 0.55-1.02 [facility] ([place]) Comment on above: Performed By: #### T ESTO, DHEAS, E2, PROG #### [place] [address] #### FT4, FT3, TSH #### [address] [address] Electrolyte Balance 4.0 mEq/L Normal 4.0-15.0 [facility] ([place]) Comment on above: Performed By: #### T ESTO, DHEAS, E2, PROG #### [place] [address] #### FT4, FT3, TSH #### [address] [address] Globulin 3.9 G/dL Normal [facility] ([place]) Comment on above: Performed By: #### T ESTO, DHEAS, E2, PROG #### [place] [address] #### FT4, FT3, TSH #### [address] [address] Glucose [Mass/Vol] 107 mg/dL Normal 80-115 [facility] ([place]) Comment on above: Performed By: #### T ESTO, DHEAS, E2, PROG #### [place] [address] #### FT4, FT3, TSH #### [address] [address] Potassium [Moles/Vol] 4.6 mmol/L Normal 3.5-5.1 [facility] ([place]) Comment on above: Performed By: #### T ESTO, DHEAS, E2, PROG #### [place] [address] #### FT4, FT3, TSH #### [address] [address] Sodium [Moles/Vol] 138 mmol/L Normal 136-145 [facility] ([place]) Comment on above: Performed By: #### T ESTO, DHEAS, E2, PROG #### [place] [address] #### FT4, FT3, TSH #### [address] [address] Total Protein 7.7 G/dL Normal 6.4-8.2 [facility] ([place]) Comment on above: Performed By: #### T ESTO, DHEAS, E2, PROG #### [place] [address] #### FT4, FT3, TSH #### [address] [address] Urea nitrogen [Mass/Vol] 12 mg/dL Normal - [facility] ([place]) Comment on above: Performed By: #### T ESTO, DHEAS, E2, PROG #### [place] [address] #### FT4, FT3, TSH #### [address] [address] DHEASon 06-09-2024 DHEA-SO4 321.59 mcg/dL Normal 25.90-460.20 [facility] ([place]) Comment on above: Result Comment: No te - New Reference Range in effect 20 Performed By: #### T ESTO, DHEAS, E2, PROG #### [place] [address] #### FT4, FT3, TSH #### [address] [address] E2on 06-09-2024 Estradiol Level 63.35 pg/mL Normal [facility] ([place]) Comment on above: Result Comment: No te - New Reference Range in effect 20 Adult Female E2 Reference Ranges: Follicular phase 19.5 - 144.2 pg/mL Midcycle 63.9 - 356.7 pg/mL Luteal phase 55.8 - 214.2 pg/mL Post menopausal 0 - 33.2 pg/mL Performed By: #### T ESTO, DHEAS, E2, PROG #### [place] [address] #### FT4, FT3, TSH #### [address] [address] FT3on 06-09-2024 Free T3 [Mass/Vol] 3.52 pg/mL Normal 2.30-4.00 [facility] ([place]) Comment on above: Performed By: #### T ESTO, DHEAS, E2, PROG #### [place] [address] #### FT4, FT3, TSH #### [place] [address] [place], [place] [address] LABORATORYOrdered By: SYSTEM SYSTEM on 06-09-2024 Albumin BCP dye [Mass/Vol] 3.8 G/dL Normal 3.4 - 4.8 G/dL AO ADM SS Albumin/Globulin [Mass ratio] 1.0 {ratio} Low 1.1 - 2.5 ratio AO ADM SS ALP [Catalytic activity/Vol] 110 U/L Normal 40 - 135 U/L AO ADM SS ALT With P-5'-P [Catalytic activity/Vol] 25 U/L Normal 14 - 59 U/L AO ADM SS AST With P-5'-P [Catalytic activity/Vol] 14 U/L Normal 10 - 40 U/L AO ADM SS Bilirubin [Mass/Vol] 0.4 mg/dL Normal 0.2 - 1 .0 mg/dL AO ADM SS Comment on above: Interpretive Data: U se of this assay is not recommended for patients undergoing treatment with eltrombopag due to the potential for falsely elevated results. Calcium [Mass/Vol] 9.5 mg/dL Normal 8.4 - 10. 2 mg/dL AO ADM SS Chloride [Moles/Vol] 103 mmol/L Normal 98 - 10 7 mmol/L AO ADM SS CO2 [Moles/Vol] 31 mmol/L Normal 23 - 31 mmol/L AO ADM SS Creatinine [Mass/Vol] 0.80 mg/dL Normal 0.55 - 1.02 mg/dL AO ADM SS DHEA-S [Mass/Vol] 321.59 ug/dL Normal 25.90 - 460.20 mcg/dL AH ADM SS Comment on above: Interpretive Data: * *Note - New Reference Range in effect 20 E2 [Mass/Vol] 63.35 pg/mL Invalid Interpretation Code ADM SS Comment on above: Interpretive Data: * *Note - New Reference Range in effect 20 Adult Female E2 Reference Ranges: Follicular phase 19.5 - 144.2 pg/mL Midcycle 63.9 - 356.7 pg/mL Luteal phase 55.8 - 214.2 pg/mL Post menopausal 0 - 33.2 pg/mL Electrolyte Balance 4.0 mEq/L Normal 4.0 - 15 .0 mEq/L AO ADM SS Free T3 [Mass/Vol] 3.52 pg/mL Normal 2.30 - 4. 00 pg/mL AO ADM SS GFR/1.73 sq M.predicted among blacks MDRD (S/P/Bld) [Vol rate/Area] 87 ml/min/1.73sqm Invalid Interpretation Code AO Chemistry S Comment on above: Interpretive Data: GFR Population mean for , Non- Americans Ages 20-29 = 116 mL/min/1.73 sq.m. Ages 30-39 = 107 mL/min/1.73 sq.m. Ages 40-49 = 99 mL/min/1.73 sq.m. Ages 50-59 = 93 mL/min/1.73 sq.m. Ages 60-69 = 85 mL/min/1.73 sq.m. Ages 70+ = 75 mL/min/1.73 sq.m. Chronic Kidney Disease: Less than 60 mL/min/1.73 square meters End Stage Renal Disease: Less than 15 mL/min/1.73 square meters GFR/1.73 sq M.predicted among non-blacks MDRD (S/P/Bld) [Vol rate/Area] 72 ml/min/1.73sqm Invalid Interpretation Code AO Chemistry S Comment on above: Interpretive Data: GFR Population mean for , Non- Americans Ages 20-29 = 116 mL/min/1.73 sq.m. Ages 30-39 = 107 mL/min/1.73 sq.m. Ages 40-49 = 99 mL/min/1.73 sq.m. Ages 50-59 = 93 mL/min/1.73 sq.m. Ages 60-69 = 85 mL/min/1.73 sq.m. Ages 70+ = 75 mL/min/1.73 sq.m. Chronic Kidney Disease: Less than 60 mL/min/1.73 square meters End Stage Renal Disease: Less than 15 mL/min/1.73 square meters Globulin 3.9 G/dL Invalid Interpretation Code AO ADM SS Glucose [Mass/Vol] 107 mg/dL Normal 80 - 115 mg/dL AO ADM SS HbA1c (Bld) [Mass fraction] 5.8 % Normal 4.3 - 6.4 % AO ADM SS Potassium [Moles/Vol] 4.6 mmol/L Normal 3.5 - 5.1 mmol/L AO ADM SS Progesterone [Mass/Vol] 37.6 ng/mL Invalid Interpretation Code ADM SS Comment on above: Interpretive Data: A dult Female Progesterone Reference Ranges: Follicular phase <0.21 - 1.40 ng/mL Luteal phase 3.34 - 25.56 ng/mL Mid-Luteal phase 4.44 - 28.03 ng/mL Postmenopausal <0.21 - 0.73 ng/ml Female: First trimester 11.22 - 90.00 ng/ml Second trimester 25.55 - 89.40 ng/ml Third trimester 48.40 - 422.50 ng/ml Protein [Mass/Vol] 7.7 G/dL Normal 6.4 - 8.2 G/dL AO ADM SS Sodium [Moles/Vol] 138 mmol/L Normal 136 - 145 mmol/L AO ADM SS Testosterone [Mass/Vol] 203.75 ng/dL Invalid Interpretation Code ADM SS Comment on above: Interpretive Data: N ormal Reference Ranges for Females: Female Premenopause Pdf16-513.01-47.94 ng/dL Female Postmenopause Emk64-27<7.00-45.62 ng/dL TSH Qn 0.09 m[IU]/L Low 0.36 - 3.74 mcIU/mL AO ADM SS Urea nitrogen [Mass/Vol] 12 mg/dL Normal 7 - 18 mg/dL AO ADM SS Urea nitrogen/Creatinine [Mass ratio] 15 ratio Normal 7 - 27 ratio AO ADM SS PROGon 06-09-2024 Progesterone Level 37.6 ng/mL Normal [facility] ([place]) Comment on above: Result Comment: Adul t Female Progesterone Reference Ranges: Follicular phase <0.21 - 1.40 ng/mL Luteal phase 3.34 - 25.56 ng/mL Mid-Luteal phase 4.44 - 28.03 ng/mL Postmenopausal <0.21 - 0.73 ng/ml Female: First trimester 11.22 - 90.00 ng/ml Second trimester 25.55 - 89.40 ng/ml Third trimester 48.40 - 422.50 ng/ml Performed By: #### T ESTO, DHEAS, E2, PROG #### [place] [address] #### FT4, FT3, TSH #### [place] [address] TESTOon 06-09-2024 Testosterone Lvl 203.75 ng/dL Normal [facility] ([place]) Comment on above: Result Comment: Norm al Reference Ranges for Females: Female Premenopause Age 21-60 9.01-47.94 ng/dL Female Postmenopause Age 45-89 <7.00-45.62 ng/dL Performed By: #### T ESTO, DHEAS, E2, PROG #### [place] [address] #### FT4, FT3, TSH #### [address] [address] TSHon 06-09-2024 TSH Qn 0.09 m[IU]/L Low 0.36-3.74 [facility] ([place]) Comment on above: Performed By: #### F T3, CMP, A1C, TSH, GFR #### [address] [address] #### TESTO, PROG, E2, DHEAS #### [place] [id number] Maxime 02-10-2024 TSI <0.10 Normal 0.00-0.55 [facility] ([place]) Comment on above: Result Comment: Perf ormed At: [facility] [address] [id number] Da Mclaughlin MD Ph:[phone] Performed By: #### T ESTO, DHEAS, E2, PROG #### [place] [address] #### FT4, FT3, TSH #### [address] [address] .Auto Diffon 02-08-2024 Basophil, Absolute 0.0 10 3/mcL Normal 0.0-0.2 Count includes the [facility] ([place]) Comment on above: Performed By: #### T ESTO, DHEAS, E2, PROG #### [place] [address] #### FT4, FT3, TSH #### [address] [address] Basophils/100 WBC (Bld) 0.3 % Normal 0.0-2.5 [facility] ([place]) Comment on above: Performed By: #### T ESTO, DHEAS, E2, PROG #### [place] [address] #### FT4, FT3, TSH #### [address] [address] Eosinophil, Absolute 0.0 10 3/mcL Normal 0.0-0.4 [facility] ([place]) Comment on above: Performed By: #### T ESTO, DHEAS, E2, PROG #### [place] [address] #### FT4, FT3, TSH #### [address] [address] Eosinophils/100 WBC (Bld) 0.9 % Normal 0.0-7.0 [facility] ([place]) Comment on above: Performed By: #### T ESTO, DHEAS, E2, PROG #### [place] [address] #### FT4, FT3, TSH #### [address] [address] Lymphocyte, Absolute 1.3 10 3/mcL Normal 0.8-3.9 [facility] ([place]) Comment on above: Performed By: #### T ESTO, DHEAS, E2, PROG #### [place] [address] #### FT4, FT3, TSH #### [address] [address] Lymphocytes/100 WBC (Bld) 24.3 % Normal 10.0-50.0 [facility] ([place]) Comment on above: Performed By: #### T ESTO, DHEAS, E2, PROG #### [place] [address] #### FT4, FT3, TSH #### [address] [address] Monocyte, Absolute 0.3 10 3/mcL Normal 0.2-1.0 Count includes the [facility] ([place]) Comment on above: Performed By: #### T ESTO, DHEAS, E2, PROG #### [place] [address] #### FT4, FT3, TSH #### [address] [address] Monocytes/100 WBC (Bld) 5.6 % Normal 1.7-13.0 [facility] ([place]) Comment on above: Performed By: #### T ESTO, DHEAS, E2, PROG #### [place] [address] #### FT4, FT3, TSH #### [address] [address] Neutrophils/100 WBC (Bld) 68.9 % Normal 37.0-80.0 [facility] ([place]) Comment on above: Performed By: #### T ESTO, DHEAS, E2, PROG #### [place] [address] #### FT4, FT3, TSH #### [address] [address] .NEUABSon 02-08-2024 Neutrophil, Absolute 3.7 10 3/mcL Normal 2.9-6.2 [facility] ([place]) Comment on above: Performed By: #### T ESTO, DHEAS, E2, PROG #### [place] [address] #### FT4, FT3, TSH #### [address] [address] CBCon 02-08-2024 Erythrocyte distribution width (RBC) [Ratio] 13.6 % Normal 11.5-14.5 [facility] ([place]) Comment on above: Performed By: #### T ESTO, DHEAS, E2, PROG #### [place] [address] #### FT4, FT3, TSH #### [place] [id number] Hematocrit (Bld) [Volume fraction] 38.2 % Normal 37.0-47.0 [facility] ([place]) Comment on above: Performed By: #### T ESTO, DHEAS, E2, PROG #### [place] [address] #### FT4, FT3, TSH #### [place] [address]897 Hgb 13.2 G/dL Normal 12.0-16.0 [facility] ([place]) Comment on above: Performed By: #### T ESTO, DHEAS, E2, PROG #### [place] [address] #### FT4, FT3, TSH #### [address] [address] MCH (RBC) [Entitic mass] 31.7 pg High 27.0-31.2 [facility] ([place]) Comment on above: Performed By: #### T ESTO, DHEAS, E2, PROG #### [place] [address] #### FT4, FT3, TSH #### [address] [address] MCHC 34.6 G/dL Normal 33.0-37.0 [facility] ([place]) Comment on above: Performed By: #### T ESTO, DHEAS, E2, PROG #### [place] [address] #### FT4, FT3, TSH #### [address] [address] MCV (RBC) [Entitic vol] 91.7 fL Normal 80.0-94.0 [facility] ([place]) Comment on above: Performed By: #### T ESTO, DHEAS, E2, PROG #### [place] [address] #### FT4, FT3, TSH #### [address] [address] Platelet 321 10 3/mcL Normal 130-400 [facility] ([place]) Comment on above: Performed By: #### T ESTO, DHEAS, E2, PROG #### [place] [address] #### FT4, FT3, TSH #### [address] [address] Platelet mean volume (Bld) [Entitic vol] 7.6 fL Normal 7.4-10.4 [facility] ([place]) Comment on above: Performed By: #### T ESTO, DHEAS, E2, PROG #### [place] [address] #### FT4, FT3, TSH #### [address] [address] RBC 4.17 10 6/mcL Low 4.20-5.40 [facility] ([place]) Comment on above: Performed By: #### T ESTO, DHEAS, E2, PROG #### [place] [address] #### FT4, FT3, TSH #### [address] [address] WBC 5.4 10 3/mcL Normal 4.6-10.8 [facility] ([place]) Comment on above: Performed By: #### T ESTO, DHEAS, E2, PROG #### [place] [address] #### FT4, FT3, TSH #### [place] [address] E2on 02-08-2024 Estradiol Level 40.36 pg/mL Normal [facility] ([place]) Comment on above: Result Comment: No te - New Reference Range in effect 20 Adult Female E2 Reference Ranges: Follicular phase 19.5 - 144.2 pg/mL Midcycle 63.9 - 356.7 pg/mL Luteal phase 55.8 - 214.2 pg/mL Post menopausal 0 - 33.2 pg/mL Performed By: #### T ESTO, DHEAS, E2, PROG #### [place] [address] #### FT4, FT3, TSH #### [address] [address] FT3on 02-08-2024 Free T3 [Mass/Vol] 3.16 pg/mL Normal 2.30-4.00 [facility] ([place]) Comment on above: Performed By: #### T ESTO, DHEAS, E2, PROG #### [place] [address] #### FT4, FT3, TSH #### [address] [address] FT4on 02-08-2024 Free T4 [Mass/Vol] 1.05 ng/dL Normal 0.76-1.46 [facility] ([place]) Comment on above: Performed By: #### T ESTO, DHEAS, E2, PROG #### [address] [address] #### FT4, FT3, TSH #### [address] [address] LABORATORYOrdered By: SYSTEM SYSTEM on 02-08-2024 Basophil, Absolute 0.0 103/mcL Normal 0.0 - 0.2 10^3/mcL AO Workflow SS Basophils/100 WBC (Bld) 0.3 % Normal 0.0 - 2.5 % AO Workflow SS Eosinophil, Absolute 0.0 103/mcL Normal 0.0 - 0 .4 10^3/mcL AO Workflow SS Eosinophils/100 WBC (Bld) 0.9 % Normal 0.0 - 7.0 % AO Workflow SS Erythrocyte distribution width (RBC) [Ratio] 13.6 % Normal 11.5 - 14.5 % AO Workflow SS Hematocrit (Bld) [Volume fraction] 38.2 % Normal 37.0 - 47.0 % AO Workflow SS Hemoglobin (Bld) [Mass/Vol] 13.2 G/dL Normal 12.0 - 16.0 G/dL AO Workflow SS Lymphocyte, Absolute 1.3 103/mcL Normal 0.8 - 3 .9 10^3/mcL AO Workflow SS Lymphocytes/100 WBC (Bld) 24.3 % Normal 10.0 - 50.0 % AO Workflow SS MCH (RBC) [Entitic mass] 31.7 pg High 27.0 - 31.2 pg AO Workflow SS MCHC 34.6 G/dL Normal 33.0 - 37.0 G/dL AO Workflow SS MCV (RBC) [Entitic vol] 91.7 fL Normal 80.0 - 94.0 fL AO Workflow SS Monocyte, Absolute 0.3 103/mcL Normal 0.2 - 1.0 10^3/mcL AO Workflow SS Monocytes/100 WBC (Bld) 5.6 % Normal 1.7 - 13.0 % AO Workflow SS Neutrophil, Absolute 3.7 103/mcL Normal 2.9 - 6 .2 10^3/mcL AO Workflow SS Neutrophils/100 WBC (Bld) 68.9 % Normal 37.0 - 80.0 % AO Workflow SS Platelet mean volume (Bld) [Entitic vol] 7.6 fL Normal 7.4 - 10.4 fL AO Workflow SS Platelets (Bld) [#/Vol] 321 103/mcL Normal 130 - 400 10^3/mcL AO Workflow SS RBC (Bld) [#/Vol] 4.17 106/mcL Low 4.20 - 5.4 0 10^6/mcL AO Workflow SS WBC (Bld) [#/Vol] 5.4 103/mcL Normal 4.6 - 10.8 10^3/mcL AO Workflow SS E2 [Mass/Vol] 40.36 pg/mL Invalid Interpretation Code [facility] Comment on above: Interpretive Data: * *Note - New Reference Range in effect 20 Adult Female E2 Reference Ranges: Follicular phase 19.5 - 144.2 pg/mL Midcycle 63.9 - 356.7 pg/mL Luteal phase 55.8 - 214.2 pg/mL Post menopausal 0 - 33.2 pg/mL Free T3 [Mass/Vol] 3.16 pg/mL Normal 2.30 - 4. 00 pg/mL AO ADM SS Free T4 [Mass/Vol] 1.05 ng/dL Normal 0.76 - 1. 46 ng/dL AO ADM SS Progesterone [Mass/Vol] 19.9 ng/mL Invalid Interpretation Code [facility] Comment on above: Interpretive Data: A dult Female Progesterone Reference Ranges: Follicular phase <0.21 - 1.40 ng/mL Luteal phase 3.34 - 25.56 ng/mL Mid-Luteal phase 4.44 - 28.03 ng/mL Postmenopausal <0.21 - 0.73 ng/ml Female: First trimester 11.22 - 90.00 ng/ml Second trimester 25.55 - 89.40 ng/ml Third trimester 48.40 - 422.50 ng/ml Testosterone [Mass/Vol] 24.87 ng/dL Invalid Interpretation Code [facility] Comment on above: Interpretive Data: N ormal Reference Ranges for Females: Female Premenopause [id number] ng/dL Female Postmenopause Uil87-03<7.00-45.62 ng/dL TPO Ab IA Qn 53 unit/mL Normal 0 - 60 unit/mL [facility] Comment on above: Interpretive Data: * *Note - New Reference Range in effect 20 TSH Qn 0.03 m[IU]/L Low 0.36 - 3.74 mcIU/mL AO ADM SS PROGon 02-08-2024 Progesterone Level 19.9 ng/mL Normal [facility] ([place]) Comment on above: Result Comment: Adul t Female Progesterone Reference Ranges: Follicular phase <0.21 - 1.40 ng/mL Luteal phase 3.34 - 25.56 ng/mL Mid-Luteal phase 4.44 - 28.03 ng/mL Postmenopausal <0.21 - 0.73 ng/ml Female: First trimester 11.22 - 90.00 ng/ml Second trimester 25.55 - 89.40 ng/ml Third trimester 48.40 - 422.50 ng/ml Performed By: #### T ESTO, DHEAS, E2, PROG #### [place] [address] #### FT4, FT3, TSH #### [place] [id number] TESTOon 02-08-2024 Testosterone Lvl 24.87 ng/dL Normal [facility] ([place]) Comment on above: Result Comment: Norm al Reference Ranges for Females: Female Premenopause Age 21-60 9.01-47.94 ng/dL Female Postmenopause Age 45-89 <7.00-45.62 ng/dL Performed By: #### T ESTO, DHEAS, E2, PROG #### [place] [address] #### FT4, FT3, TSH #### [place] [address] TSHon 02-08-2024 TSH Qn 0.03 m[IU]/L Low 0.36-3.74 [facility] ([place]) Comment on above: Performed By: #### T ESTO, DHEAS, E2, PROG #### [place] [address] #### FT4, FT3, TSH #### [address] [address] aTPOon 02-08-2024 anti-Thyroid Peroxidase 53 units/ml Normal 0-60 [facility] ([place]) Comment on above: Result Comment: No te - New Reference Range in effect 20 Performed By: #### T ESTO, DHEAS, E2, PROG #### [address] [address] #### FT4, FT3, TSH #### [address] [address] .GFRon 01-18-2024 GFR 80 ml/min/1.73sqm Normal [facility] ([place]) Comment on above: Result Comment: GFR Population mean for , Non- Americans Ages 20-29 = 116 mL/min/1.73 sq.m. Ages 30-39 = 107 mL/min/1.73 sq.m. Ages 40-49 = 99 mL/min/1.73 sq.m. Ages 50-59 = 93 mL/min/1.73 sq.m. Ages 60-69 = 85 mL/min/1.73 sq.m. Ages 70+ = 75 mL/min/1.73 sq.m. Chronic Kidney Disease: Less than 60 mL/min/1.73 square meters End Stage Renal Disease: Less than 15 mL/min/1.73 square meters Performed By: #### G FR, BMP #### [address] [address] GFR Non- 66 ml/min/1.73sqm Normal [facility] ([place]) Comment on above: Result Comment: GFR Population mean for , Non- Americans Ages 20-29 = 116 mL/min/1.73 sq.m. Ages 30-39 = 107 mL/min/1.73 sq.m. Ages 40-49 = 99 mL/min/1.73 sq.m. Ages 50-59 = 93 mL/min/1.73 sq.m. Ages 60-69 = 85 mL/min/1.73 sq.m. Ages 70+ = 75 mL/min/1.73 sq.m. Chronic Kidney Disease: Less than 60 mL/min/1.73 square meters End Stage Renal Disease: Less than 15 mL/min/1.73 square meters Performed By: #### G FR, BMP #### [address] [address] BMPon 01-18-2024 BUN/Creatinine Ratio 17 ratio Normal 7-27 Count includes the [facility] ([place]) Comment on above: Performed By: #### Oseas SCHERER, BMP #### [address] [address] Calcium [Mass/Vol] 9.4 mg/dL Normal 8.4-10.2 [facility] ([place]) Comment on above: Performed By: #### Oseas SCHERER, BMP #### [address] [address] Chloride [Moles/Vol] 103 mmol/L Normal 98-107 Count includes the [facility] ([place]) Comment on above: Performed By: #### Oseas SCHERER, BMP #### [address] [address] CO2 [Moles/Vol] 30 mmol/L Normal 23-31 [facility] ([place]) Comment on above: Performed By: #### Oseas SCHERER, BMP #### [address] [address] Creatinine [Mass/Vol] 0.86 mg/dL Normal 0.55-1.02 [facility] ([place]) Comment on above: Performed By: #### Oseas SCHERER, BMP #### [address] [address] Electrolyte Balance 8.0 mEq/L Normal 4.0-15.0 [facility] ([place]) Comment on above: Performed By: #### Oseas SCHERER, BMP #### [address] [address] Glucose [Mass/Vol] 154 mg/dL High 80-115 [facility] ([place]) Comment on above: Performed By: #### Oseas SCHERER, BMP #### [address] [address] Potassium [Moles/Vol] 4.7 mmol/L Normal 3.5-5.1 [facility] ([place]) Comment on above: Performed By: #### Oseas SCHERER, BMP #### [address] [address] Sodium [Moles/Vol] 141 mmol/L Normal 136-145 [facility] ([place]) Comment on above: Performed By: #### G , BMP #### [address] [address] Urea nitrogen [Mass/Vol] 15 mg/dL Normal 7-18 [facility] ([place]) Comment on above: Performed By: #### G , BMP #### [address] [address] .Auto Diffon 08-08-2023 Basophil, Absolute 0.0 10 3/mcL Normal 0.0-0.2 Count includes the [facility] ([place]) Comment on above: Performed By: #### T ESTO, DHEAS, E2, PROG #### [place] [address] #### FT4, FT3, TSH #### [address] [address] Basophils/100 WBC (Bld) 0.9 % Normal 0.0-2.5 [facility] ([place]) Comment on above: Performed By: #### T ESTO, DHEAS, E2, PROG #### [place] [address] #### FT4, FT3, TSH #### [address] [address] Eosinophil, Absolute 0.0 10 3/mcL Normal 0.0-0.4 [facility] ([place]) Comment on above: Performed By: #### T ESTO, DHEAS, E2, PROG #### [place] [address] #### FT4, FT3, TSH #### [address] [address] Eosinophils/100 WBC (Bld) 0.9 % Normal 0.0-7.0 [facility] ([place]) Comment on above: Performed By: #### T ESTO, DHEAS, E2, PROG #### [place] [address] #### FT4, FT3, TSH #### [address] [address] Lymphocyte, Absolute 1.1 10 3/mcL Normal 0.8-3.9 [facility] ([place]) Comment on above: Performed By: #### T ESTO, DHEAS, E2, PROG #### [place] [address] #### FT4, FT3, TSH #### [address] [address] Lymphocytes/100 WBC (Bld) 27.2 % Normal 10.0-50.0 [facility] ([place]) Comment on above: Performed By: #### T ESTO, DHEAS, E2, PROG #### [place] [address] #### FT4, FT3, TSH #### [address] [address] Monocyte, Absolute 0.4 10 3/mcL Normal 0.2-1.0 Count includes the [facility] ([place]) Comment on above: Performed By: #### T ESTO, DHEAS, E2, PROG #### [place] [address] #### FT4, FT3, TSH #### [address] [address] Monocytes/100 WBC (Bld) 8.4 % Normal 1.7-13.0 [facility] ([place]) Comment on above: Performed By: #### T ESTO, DHEAS, E2, PROG #### [place] [address] #### FT4, FT3, TSH #### [address] [address] Neutrophils/100 WBC (Bld) 62.6 % Normal 37.0-80.0 [facility] ([place]) Comment on above: Performed By: #### T ESTO, DHEAS, E2, PROG #### [place] [id number] #### FT4, FT3, TSH #### [place] [address] [place], [place] [address] .GFRon 08-08-2023 GFR 95 ml/min/1.73sqm Normal [facility] ([place]) Comment on above: Result Comment: GFR Population mean for , Non- Americans Ages 20-29 = 116 mL/min/1.73 sq.m. Ages 30-39 = 107 mL/min/1.73 sq.m. Ages 40-49 = 99 mL/min/1.73 sq.m. Ages 50-59 = 93 mL/min/1.73 sq.m. Ages 60-69 = 85 mL/min/1.73 sq.m. Ages 70+ = 75 mL/min/1.73 sq.m. Chronic Kidney Disease: Less than 60 mL/min/1.73 square meters End Stage Renal Disease: Less than 15 mL/min/1.73 square meters Performed By: #### T ESTO, DHEAS, E2, PROG #### [place] [address] #### FT4, FT3, TSH #### [address] [address] GFR Non- 79 ml/min/1.73sqm Normal [facility] ([place]) Comment on above: Result Comment: GFR Population mean for , Non- Americans Ages 20-29 = 116 mL/min/1.73 sq.m. Ages 30-39 = 107 mL/min/1.73 sq.m. Ages 40-49 = 99 mL/min/1.73 sq.m. Ages 50-59 = 93 mL/min/1.73 sq.m. Ages 60-69 = 85 mL/min/1.73 sq.m. Ages 70+ = 75 mL/min/1.73 sq.m. Chronic Kidney Disease: Less than 60 mL/min/1.73 square meters End Stage Renal Disease: Less than 15 mL/min/1.73 square meters Performed By: #### T ESTO, DHEAS, E2, PROG #### [address] [address] #### FT4, FT3, TSH #### [address] [address] .NEUABSon 08-08-2023 Neutrophil, Absolute 2.6 10 3/mcL Low 2.9-6.2 [facility] ([place]) Comment on above: Performed By: #### T ESTO, DHEAS, E2, PROG #### [place] [address] #### FT4, FT3, TSH #### [address] [address] A1Con 08-08-2023 HbA1c (Bld) [Mass fraction] 6.0 % Normal 4.3-6.4 [facility] ([place]) Comment on above: Performed By: #### T ESTO, DHEAS, E2, PROG #### [place] [address] #### FT4, FT3, TSH #### [address] [address] CBCon 08-08-2023 Erythrocyte distribution width (RBC) [Ratio] 13.4 % Normal 11.5-14.5 [facility] ([place]) Comment on above: Performed By: #### T ESTO, DHEAS, E2, PROG #### [place] [address] #### FT4, FT3, TSH #### [address] [address] Hematocrit (Bld) [Volume fraction] 39.5 % Normal 37.0-47.0 [facility] ([place]) Comment on above: Performed By: #### T ESTO, DHEAS, E2, PROG #### [place] [address] #### FT4, FT3, TSH #### [address] [address] Hgb 13.1 G/dL Normal 12.0-16.0 [facility] ([place]) Comment on above: Performed By: #### T ESTO, DHEAS, E2, PROG #### [place] [address] #### FT4, FT3, TSH #### [address] [address] MCH (RBC) [Entitic mass] 30.3 pg Normal 27.0-31.2 [facility] ([place]) Comment on above: Performed By: #### T ESTO, DHEAS, E2, PROG #### [place] [address] #### FT4, FT3, TSH #### [address] [address] MCHC 33.3 G/dL Normal 33.0-37.0 [facility] ([place]) Comment on above: Performed By: #### T ESTO, DHEAS, E2, PROG #### [place] [address] #### FT4, FT3, TSH #### [address] [address] MCV (RBC) [Entitic vol] 91.1 fL Normal 80.0-94.0 [facility] ([place]) Comment on above: Performed By: #### T ESTO, DHEAS, E2, PROG #### [place] [address] #### FT4, FT3, TSH #### [address] [address] Platelet 286 10 3/mcL Normal 130-400 [facility] ([place]) Comment on above: Performed By: #### T ESTO, DHEAS, E2, PROG #### [place] [address] #### FT4, FT3, TSH #### [address] [address] Platelet mean volume (Bld) [Entitic vol] 7.4 fL Normal 7.4-10.4 [facility] ([place]) Comment on above: Performed By: #### T ESTO, DHEAS, E2, PROG #### [place] [address] #### FT4, FT3, TSH #### [address] [address] RBC 4.34 10 6/mcL Normal 4.20-5.40 [facility] ([place]) Comment on above: Performed By: #### T ESTO, DHEAS, E2, PROG #### [place] [address] #### FT4, FT3, TSH #### [address] [address] WBC 4.2 10 3/mcL Low 4.6-10.8 [facility] ([place]) Comment on above: Performed By: #### T ESTO, DHEAS, E2, PROG #### [place] [address] #### FT4, FT3, TSH #### [address] [address] CMPon 08-08-2023 Albumin Level 3.7 G/dL Normal 3.4-4.8 [facility] ([place]) Comment on above: Performed By: #### T ESTO, DHEAS, E2, PROG #### [place] [address] #### FT4, FT3, TSH #### [address] [address] Albumin/Globulin [Mass ratio] 1.0 {ratio} Low 1.1-2.5 [facility] ([place]) Comment on above: Performed By: #### T ESTO, DHEAS, E2, PROG #### [place] [address] #### FT4, FT3, TSH #### [address] [address] ALP [Catalytic activity/Vol] 115 U/L Normal 40-135 [facility] ([place]) Comment on above: Performed By: #### T ESTO, DHEAS, E2, PROG #### [place] [address] #### FT4, FT3, TSH #### [address] [address] ALT [Catalytic activity/Vol] 28 U/L Normal 14-59 [facility] ([place]) Comment on above: Performed By: #### T ESTO, DHEAS, E2, PROG #### [place] [address] #### FT4, FT3, TSH #### [address] [address] AST [Catalytic activity/Vol] 15 U/L Normal 10-40 [facility] ([place]) Comment on above: Performed By: #### T ESTO, DHEAS, E2, PROG #### [place] [address] #### FT4, FT3, TSH #### [address] [address] Bili Total 0.5 mg/dL Normal 0.2-1.0 [facility] ([place]) Comment on above: Result Comment: Use of this assay is not recommended for patients undergoing treatment with eltrombopag due to the potential for falsely elevated results. Performed By: #### T ESTO, DHEAS, E2, PROG #### [place] [address] #### FT4, FT3, TSH #### [address] [address] BUN/Creatinine Ratio 23 ratio Normal 7-27 Count includes the [facility] ([place]) Comment on above: Performed By: #### T ESTO, DHEAS, E2, PROG #### [place] [address] #### FT4, FT3, TSH #### [address] [address] Calcium [Mass/Vol] 8.5 mg/dL Normal 8.4-10.2 [facility] ([place]) Comment on above: Performed By: #### T ESTO, DHEAS, E2, PROG #### [place] [address] #### FT4, FT3, TSH #### [address] [address] Chloride [Moles/Vol] 105 mmol/L Normal 98-107 Count includes the [facility] ([place]) Comment on above: Performed By: #### T ESTO, DHEAS, E2, PROG #### [place] [address] #### FT4, FT3, TSH #### [address] [address] CO2 [Moles/Vol] 29 mmol/L Normal 23-31 [facility] ([place]) Comment on above: Performed By: #### T ESTO, DHEAS, E2, PROG #### [place] [address] #### FT4, FT3, TSH #### [address] [address] Creatinine [Mass/Vol] 0.74 mg/dL Normal 0.55-1.02 [facility] ([place]) Comment on above: Performed By: #### T ESTO, DHEAS, E2, PROG #### [place] [address] #### FT4, FT3, TSH #### [address] [address] Electrolyte Balance 11.0 mEq/L Normal 4.0-15.0 [facility] ([place]) Comment on above: Performed By: #### T ESTO, DHEAS, E2, PROG #### [place] [address] #### FT4, FT3, TSH #### [address] [address] Globulin 3.6 G/dL Normal [facility] ([place]) Comment on above: Performed By: #### T ESTO, DHEAS, E2, PROG #### [place] [address] #### FT4, FT3, TSH #### [address] [address] Glucose [Mass/Vol] 100 mg/dL Normal 80-115 [facility] ([place]) Comment on above: Performed By: #### T ESTO, DHEAS, E2, PROG #### [place] [address] #### FT4, FT3, TSH #### [address] [address] Potassium [Moles/Vol] 4.5 mmol/L Normal 3.5-5.1 [facility] ([place]) Comment on above: Performed By: #### T ESTO, DHEAS, E2, PROG #### [place] [address] #### FT4, FT3, TSH #### [address] [address] Sodium [Moles/Vol] 145 mmol/L Normal 136-145 [facility] ([place]) Comment on above: Performed By: #### T ESTO, DHEAS, E2, PROG #### [place] [address] #### FT4, FT3, TSH #### [address] [address] Total Protein 7.3 G/dL Normal 6.4-8.2 [facility] ([place]) Comment on above: Performed By: #### T ESTO, DHEAS, E2, PROG #### [place] [address] #### FT4, FT3, TSH #### [address] [address] Urea nitrogen [Mass/Vol] 17 mg/dL Normal 7-18 [facility] ([place]) Comment on above: Performed By: #### T ESTO, DHEAS, E2, PROG #### [place] [address] #### FT4, FT3, TSH #### [address] [address] DHEASon 08-08-2023 DHEA-SO4 132.31 mcg/dL Normal 25.90-460.20 [facility] ([place]) Comment on above: Result Comment: No te - New Reference Range in effect 20 Performed By: #### T ESTO, DHEAS, E2, PROG #### [place] [address] #### FT4, FT3, TSH #### [address] [address] E2on 08-08-2023 Estradiol Level 30.21 pg/mL Normal [facility] ([place]) Comment on above: Result Comment: No te - New Reference Range in effect 20 Adult Female E2 Reference Ranges: Follicular phase 19.5 - 144.2 pg/mL Midcycle 63.9 - 356.7 pg/mL Luteal phase 55.8 - 214.2 pg/mL Post menopausal 0 - 33.2 pg/mL Performed By: #### T ESTO, DHEAS, E2, PROG #### [place] [address] #### FT4, FT3, TSH #### [address] [address] FT3on 08-08-2023 Free T3 [Mass/Vol] 3.01 pg/mL Normal 2.30-4.00 [facility] ([place]) Comment on above: Performed By: #### T ESTO, DHEAS, E2, PROG #### [place] [address] #### FT4, FT3, TSH #### [address] [address] FT4on 08-08-2023 Free T4 [Mass/Vol] 1.04 ng/dL Normal 0.76-1.46 [facility] ([place]) Comment on above: Performed By: #### T ESTO, DHEAS, E2, PROG #### [address] [address] #### FT4, FT3, TSH #### [place] [address] [place], [place] [address] LABORATORYOrdered By: SYSTEM SYSTEM on 08-08-2023 Albumin BCP dye [Mass/Vol] 3.7 G/dL Invalid Interpretation Code 3.4 - 4.8 G/dL AO ADM SS Albumin/Globulin [Mass ratio] 1.0 {ratio} Invalid Interpretation Code 1.1 - 2.5 ratio AO ADM SS ALP [Catalytic activity/Vol] 115 U/L Invalid Interpretation Code 40 - 135 U/L AO ADM SS ALT With P-5'-P [Catalytic activity/Vol] 28 U/L Invalid Interpretation Code 14 - 59 U/L AO ADM SS AST With P-5'-P [Catalytic activity/Vol] 15 U/L Invalid Interpretation Code 10 - 40 U/L AO ADM SS Basophil, Absolute 0.0 103/mcL Invalid Interpretation Code 0.0 - 0.2 10^3/mcL AO Workflow SS Basophils/100 WBC (Bld) 0.9 % Invalid Interpretation Code 0.0 - 2.5 % AO Workflow SS Bilirubin [Mass/Vol] 0.5 mg/dL Invalid Interpretation Code 0.2 - 1.0 mg/dL AO ADM SS Comment on above: Interpretive Data: U se of this assay is not recommended for patients undergoing treatment with eltrombopag due to the potential for falsely elevated results. Calcium [Mass/Vol] 8.5 mg/dL Invalid Interpretation Code 8.4 - 10.2 mg/dL AO ADM SS Chloride [Moles/Vol] 105 mmol/L Invalid Interpretation Code 98 - 107 mmol/L AO ADM SS CO2 [Moles/Vol] 29 mmol/L Invalid Interpretation Code 23 - 31 mmol/L AO ADM SS Creatinine [Mass/Vol] 0.74 mg/dL Invalid Interpretation Code 0.55 - 1.02 mg/dL AO ADM SS Electrolyte Balance 11.0 mEq/L Invalid Interpretation Code 4.0 - 15.0 mEq/L AO ADM SS Eosinophil, Absolute 0.0 103/mcL Invalid Interpretation Code 0.0 - 0.4 10^3/mcL AO Workflow SS Eosinophils/100 WBC (Bld) 0.9 % Invalid Interpretation Code 0.0 - 7.0 % AO Workflow SS Erythrocyte distribution width (RBC) [Ratio] 13.4 % Invalid Interpretation Code 11.5 - 14.5 % AO Workflow SS GFR/1.73 sq M.predicted among blacks MDRD (S/P/Bld) [Vol rate/Area] 95 ml/min/1.73sqm Invalid Interpretation Code AO Chemistry S Comment on above: Interpretive Data: GFR Population mean for , Non- Americans Ages 20-29 = 116 mL/min/1.73 sq.m. Ages 30-39 = 107 mL/min/1.73 sq.m. Ages 40-49 = 99 mL/min/1.73 sq.m. Ages 50-59 = 93 mL/min/1.73 sq.m. Ages 60-69 = 85 mL/min/1.73 sq.m. Ages 70+ = 75 mL/min/1.73 sq.m. Chronic Kidney Disease: Less than 60 mL/min/1.73 square meters End Stage Renal Disease: Less than 15 mL/min/1.73 square meters GFR/1.73 sq M.predicted among non-blacks MDRD (S/P/Bld) [Vol rate/Area] 79 ml/min/1.73sqm Invalid Interpretation Code AO Chemistry S Comment on above: Interpretive Data: GFR Population mean for , Non- Americans Ages 20-29 = 116 mL/min/1.73 sq.m. Ages 30-39 = 107 mL/min/1.73 sq.m. Ages 40-49 = 99 mL/min/1.73 sq.m. Ages 50-59 = 93 mL/min/1.73 sq.m. Ages 60-69 = 85 mL/min/1.73 sq.m. Ages 70+ = 75 mL/min/1.73 sq.m. Chronic Kidney Disease: Less than 60 mL/min/1.73 square meters End Stage Renal Disease: Less than 15 mL/min/1.73 square meters Globulin 3.6 G/dL Invalid Interpretation Code AO ADM SS Glucose [Mass/Vol] 100 mg/dL Invalid Interpretation Code 80 - 115 mg/dL AO ADM SS HbA1c (Bld) [Mass fraction] 6.0 % Invalid Interpretation Code 4.3 - 6.4 % AO ADM SS Hematocrit (Bld) [Volume fraction] 39.5 % Invalid Interpretation Code 37.0 - 47.0 % AO Workflow SS Hemoglobin (Bld) [Mass/Vol] 13.1 G/dL Invalid Interpretation Code 12.0 - 16.0 G/dL AO Workflow SS Lipase [Catalytic activity/Vol] 48 U/L Invalid Interpretation Code 16 - 77 U/L AO ADM SS Lymphocyte, Absolute 1.1 103/mcL Invalid Interpretation Code 0.8 - 3.9 10^3/mcL AO Workflow SS Lymphocytes/100 WBC (Bld) 27.2 % Invalid Interpretation Code 10.0 - 50.0 % AO Workflow SS MCH (RBC) [Entitic mass] 30.3 pg Invalid Interpretation Code 27.0 - 31.2 pg AO Workflow SS MCHC 33.3 G/dL Invalid Interpretation Code 33.0 - 37.0 G/dL AO Workflow SS MCV (RBC) [Entitic vol] 91.1 fL Invalid Interpretation Code 80.0 - 94.0 fL AO Workflow SS Monocyte, Absolute 0.4 103/mcL Invalid Interpretation Code 0.2 - 1.0 10^3/mcL AO Workflow SS Monocytes/100 WBC (Bld) 8.4 % Invalid Interpretation Code 1.7 - 13.0 % AO Workflow SS Neutrophil, Absolute 2.6 103/mcL Invalid Interpretation Code 2.9 - 6.2 10^3/mcL AO Workflow SS Neutrophils/100 WBC (Bld) 62.6 % Invalid Interpretation Code 37.0 - 80.0 % AO Workflow SS Platelet mean volume (Bld) [Entitic vol] 7.4 fL Invalid Interpretation Code 7.4 - 10.4 fL AO Workflow SS Platelets (Bld) [#/Vol] 286 103/mcL Invalid Interpretation Code 130 - 400 10^3/mcL AO Workflow SS Potassium [Moles/Vol] 4.5 mmol/L Invalid Interpretation Code 3.5 - 5.1 mmol/L AO ADM SS Protein [Mass/Vol] 7.3 G/dL Invalid Interpretation Code 6.4 - 8.2 G/dL AO ADM SS RBC (Bld) [#/Vol] 4.34 106/mcL Invalid Interpretation Code 4.20 - 5.40 10^6/mcL AO Workflow SS Sodium [Moles/Vol] 145 mmol/L Invalid Interpretation Code 136 - 145 mmol/L AO ADM SS Urea nitrogen [Mass/Vol] 17 mg/dL Invalid Interpretation Code 7 - 18 mg/dL AO ADM SS Urea nitrogen/Creatinine [Mass ratio] 23 ratio Invalid Interpretation Code 7 - 27 ratio AO ADM SS WBC (Bld) [#/Vol] 4.2 103/mcL Invalid Interpretation Code 4.6 - 10.8 10^3/mcL AO Workflow SS LABORATORYOrdered By: Julita Mehta on 08-08-2023 Cholesterol [Mass/Vol] 128 mg/dL Invalid Interpretation Code 0 - 200 mg/dL AO ADM SS Comment on above: Interpretive Data: C holesterol Reference Interval: Less than 200 Desirable 200-239 Borderline high risk 240 and above High risk Cholesterol in HDL [Mass/Vol] 49 mg/dL Invalid Interpretation Code 40 - 60 mg/dL AO ADM SS Cholesterol in LDL [Mass/Vol] 70 mg/dL Invalid Interpretation Code 0 - 130 mg/dL AO ADM SS Triglyceride [Mass/Vol] 44 mg/dL Invalid Interpretation Code 0 - 150 mg/dL AO ADM SS Comment on above: Interpretive Data: T riglyceride Reference Interval: Less than 150 Normal 150-199 Borderline high risk 200-499 High risk 500 or higher Very high risk LIPon 08-08-2023 Lipase Level 48 U/L Normal 16-77 [facility] ([place]) Comment on above: Performed By: #### T ESTO, DHEAS, E2, PROG #### [place] [address] #### FT4, FT3, TSH #### [address] [address] LIPIDon 08-08-2023 Cholesterol [Mass/Vol] 128 mg/dL Normal 0-200 [facility] ([place]) Comment on above: Result Comment: Chol esterol Reference Interval: Less than 200 Desirable 200-239 Borderline high risk 240 and above High risk Performed By: #### T ESTO, DHEAS, E2, PROG #### [place] [id number] #### FT4, FT3, TSH #### [address] [address] Cholesterol in HDL [Mass/Vol] 49 mg/dL Normal 40-60 [facility] ([place]) Comment on above: Performed By: #### T ESTO, DHEAS, E2, PROG #### [place] [address] #### FT4, FT3, TSH #### [address] [address] Cholesterol in LDL [Mass/Vol] 70 mg/dL Normal 0-130 [facility] ([place]) Comment on above: Performed By: #### T ESTO, DHEAS, E2, PROG #### [place] [address] #### FT4, FT3, TSH #### [address] [address] Triglyceride [Mass/Vol] 44 mg/dL Normal 0-150 [facility] ([place]) Comment on above: Result Comment: Trig lyceride Reference Interval: Less than 150 Normal 150-199 Borderline high risk 200-499 High risk 500 or higher Very high risk Performed By: #### T ESTO, DHEAS, E2, PROG #### [place] [address] #### FT4, FT3, TSH #### [address] [address] PROGon 08-08-2023 Progesterone Level 22.8 ng/mL Normal [facility] ([place]) Comment on above: Result Comment: Adul t Female Progesterone Reference Ranges: Follicular phase <0.21 - 1.40 ng/mL Luteal phase 3.34 - 25.56 ng/mL Mid-Luteal phase 4.44 - 28.03 ng/mL Postmenopausal <0.21 - 0.73 ng/ml Female: First trimester 11.22 - 90.00 ng/ml Second trimester 25.55 - 89.40 ng/ml Third trimester 48.40 - 422.50 ng/ml Performed By: #### T ESTO, DHEAS, E2, PROG #### [place] [address] #### FT4, FT3, TSH #### [address] [address] TESTOon 08-08-2023 Testosterone Lvl 22.62 ng/dL Normal [facility] ([place]) Comment on above: Result Comment: Norm al Reference Ranges for Females: Female Premenopause Age 21-60 9.01-47.94 ng/dL Female Postmenopause Age 45-89 <7.00-45.62 ng/dL Performed By: #### T ESTO, DHEAS, E2, PROG #### [place] [address] #### FT4, FT3, TSH #### [place] [address] [place], [place] [address] TSHon 08-08-2023 TSH Qn 0.03 m[IU]/L Low 0.36-3.74 [facility] ([place]) Comment on above: Performed By: #### T ESTO, DHEAS, E2, PROG #### [place] [address] #### FT4, FT3, TSH #### [place] [address] [place], [place] [address] LABORATORYOrdered By: SYSTEM SYSTEM on 11-18-2022 DHEA-S [Mass/Vol] 184.82 ug/dL Invalid Interpretation Code 25.90 - 460.20 mcg/dL ADM SS E2 [Mass/Vol] 29.31 pg/mL Invalid Interpretation Code AH ADM SS Free T3 [Mass/Vol] 3.06 pg/mL Invalid Interpretation Code 2.30 - 4.00 pg/mL AO ADM SS Progesterone [Mass/Vol] 21.4 ng/mL Invalid Interpretation Code ADM SS Testosterone [Mass/Vol] 81.74 ng/dL Invalid Interpretation Code ADM SS LABORATORYOrdered By: Julee Rebolledo on 06-14-2022 Albumin BCP dye [Mass/Vol] 3.9 G/dL Invalid Interpretation Code 3.4 - 4.8 G/dL AO ADM SS Albumin/Globulin [Mass ratio] 1.3 {ratio} Invalid Interpretation Code 1.1 - 2.5 ratio AO ADM SS ALP [Catalytic activity/Vol] 101 U/L Invalid Interpretation Code 40 - 135 U/L AO ADM SS ALT With P-5'-P [Catalytic activity/Vol] 16 U/L Invalid Interpretation Code 14 - 59 U/L AO ADM SS AST With P-5'-P [Catalytic activity/Vol] 15 U/L Invalid Interpretation Code 10 - 40 U/L AO ADM SS Basophil, Absolute 0.0 103/mcL Invalid Interpretation Code 0.0 - 0.2 10^3/mcL AO Workflow SS Basophils/100 WBC (Bld) 0.9 % Invalid Interpretation Code 0.0 - 2.5 % AO Workflow SS Bilirubin [Mass/Vol] 0.6 mg/dL Invalid Interpretation Code 0.2 - 1.0 mg/dL AO ADM SS Calcium [Mass/Vol] 8.7 mg/dL Invalid Interpretation Code 8.4 - 10.2 mg/dL AO ADM SS Chloride [Moles/Vol] 105 mmol/L Invalid Interpretation Code 98 - 107 mmol/L AO ADM SS Cholesterol [Mass/Vol] 149 mg/dL Invalid Interpretation Code 0 - 200 mg/dL AO ADM SS Cholesterol in HDL [Mass/Vol] 52 mg/dL Invalid Interpretation Code 40 - 60 mg/dL AO ADM SS Cholesterol in LDL [Mass/Vol] 87 mg/dL Invalid Interpretation Code 0 - 130 mg/dL AO ADM SS CO2 [Moles/Vol] 30 mmol/L Invalid Interpretation Code 23 - 31 mmol/L AO ADM SS Creatinine [Mass/Vol] 0.80 mg/dL Invalid Interpretation Code 0.55 - 1.02 mg/dL AO ADM SS Electrolyte Balance 5.0 mEq/L Invalid Interpretation Code 4.0 - 15.0 mEq/L AO ADM SS Eosinophil, Absolute 0.1 103/mcL Invalid Interpretation Code 0.0 - 0.4 10^3/mcL AO Workflow SS Eosinophils/100 WBC (Bld) 1.9 % Invalid Interpretation Code 0.0 - 7.0 % AO Workflow SS Erythrocyte distribution width (RBC) [Ratio] 13.4 % Invalid Interpretation Code 11.5 - 14.5 % AO Workflow SS Free T3 [Mass/Vol] 3.27 pg/mL Invalid Interpretation Code 2.30 - 4.00 pg/mL AO ADM SS Free T4 [Mass/Vol] 1.14 ng/dL Invalid Interpretation Code 0.76 - 1.46 ng/dL AO ADM SS Globulin 3.1 G/dL Invalid Interpretation Code AO ADM SS Glucose [Mass/Vol] 90 mg/dL Invalid Interpretation Code 80 - 115 mg/dL AO ADM SS HbA1c (Bld) [Mass fraction] 5.8 % Invalid Interpretation Code 4.3 - 6.4 % AO ADM SS Hematocrit (Bld) [Volume fraction] 39.0 % Invalid Interpretation Code 37.0 - 47.0 % AO Workflow SS Hemoglobin (Bld) [Mass/Vol] 13.2 G/dL Invalid Interpretation Code 12.0 - 16.0 G/dL AO Workflow SS Lymphocyte, Absolute 1.3 103/mcL Invalid Interpretation Code 0.8 - 3.9 10^3/mcL AO Workflow SS Lymphocytes/100 WBC (Bld) 28.8 % Invalid Interpretation Code 10.0 - 50.0 % AO Workflow SS MCH (RBC) [Entitic mass] 31.3 pg Invalid Interpretation Code 27.0 - 31.2 pg AO Workflow SS MCHC 33.8 G/dL Invalid Interpretation Code 33.0 - 37.0 G/dL AO Workflow SS MCV (RBC) [Entitic vol] 92.6 fL Invalid Interpretation Code 80.0 - 94.0 fL AO Workflow SS Monocyte, Absolute 0.4 103/mcL Invalid Interpretation Code 0.2 - 1.0 10^3/mcL AO Workflow SS Monocytes/100 WBC (Bld) 8.7 % Invalid Interpretation Code 1.7 - 13.0 % AO Workflow SS Neutrophil, Absolute 2.7 103/mcL Invalid Interpretation Code 2.9 - 6.2 10^3/mcL AO Workflow SS Neutrophils/100 WBC (Bld) 59.7 % Invalid Interpretation Code 37.0 - 80.0 % AO Workflow SS Platelet mean volume (Bld) [Entitic vol] 7.9 fL Invalid Interpretation Code 7.4 - 10.4 fL AO Workflow SS Platelets (Bld) [#/Vol] 309 103/mcL Invalid Interpretation Code 130 - 400 10^3/mcL AO Workflow SS Potassium [Moles/Vol] 4.7 mmol/L Invalid Interpretation Code 3.5 - 5.1 mmol/L AO ADM SS Protein [Mass/Vol] 7.0 G/dL Invalid Interpretation Code 6.4 - 8.2 G/dL AO ADM SS RBC (Bld) [#/Vol] 4.21 106/mcL Invalid Interpretation Code 4.20 - 5.40 10^6/mcL AO Workflow SS Sodium [Moles/Vol] 140 mmol/L Invalid Interpretation Code 136 - 145 mmol/L AO ADM SS Triglyceride [Mass/Vol] 52 mg/dL Invalid Interpretation Code 0 - 150 mg/dL AO ADM SS TSH Qn 0.48 m[IU]/L Invalid Interpretation Code 0.36 - 3.74 mcIU/mL AO ADM SS Urea nitrogen [Mass/Vol] 14 mg/dL Invalid Interpretation Code 7 - 18 mg/dL AO ADM SS Urea nitrogen/Creatinine [Mass ratio] 18 ratio Invalid Interpretation Code 7 - 27 ratio AO ADM SS Vit. D 25-Hydroxy 92.7 ng/mL Invalid Interpretation Code AO ADM SS WBC 4.6 103/mcL Invalid Interpretation Code 4.6 - 10.8 10^3/mcL AO Workflow SS LABORATORYOrdered By: Pixeon SYSTEM on 06-14-2022 GFR 88 ml/min/1.73sqm Invalid Interpretation Code AO Chemistry S GFR Non- 72 ml/min/1.73sqm Invalid Interpretation Code AO Chemistry S Monocyte distribution width Auto (Bld) [Entitic vol] Not Performed 1 *NA* (06/14/22 12:12 PM) Invalid Interpretation Code 0.00 - 20.00 AO Hematology S Comment on above: Result Comment: MDW testing performed only on adult ER patients between the ages of 18-89 years. LABORATORYOrdered By: Pixeon SYSTEM on 02-22-2022 DHEA-S [Mass/Vol] 44.35 ug/dL Invalid Interpretation Code 25.90 - 460.20 mcg/dL AH ADM SS Progesterone [Mass/Vol] ng/mL Invalid Interpretation Code AH ADM SS Testosterone [Mass/Vol] 20.24 ng/dL Invalid Interpretation Code AH ADM SS LABORATORYOrdered By: Julita Mehta on 02-22-2022 Free T3 [Mass/Vol] 2.59 pg/mL Invalid Interpretation Code 2.30 - 4.00 pg/mL AO ADM SS LABORATORYOrdered By: Emilie Levin on 02-22-2022 Gest Age 66 Invalid Interpretation Code AO Sendouts SS Vital Signs Date Time Vital Sign Value Performing Clinician Parul little 03-30-2023 09:36-0400 Diastolic Blood Pressure Non-Invasive [address] JESSE HOLDEN MD [facility] 03-30-2023 09:36-0400 Heart rate 57 /min DR JESSE HOLDEN MD [facility] 03-30-2023 09:36-0400 Systolic Blood Pressure Non-Invasive [address] JESSE HOLDEN MD [facility] 03-30-2023 09:32-0400 Diastolic Blood Pressure Non-Invasive [address] JESSE HOLDEN MD [facility] 03-30-2023 09:32-0400 Heart rate 62 /min DR JESSE HOLDEN MD [facility] 03-30-2023 09:32-0400 Systolic Blood Pressure Non-Invasive [address] JESSE HOLDEN MD [facility] 03-30-2023 09:25-0400 Diastolic Blood Pressure Non-Invasive [address] JESSE HODLEN MD [facility] 03-30-2023 09:25-0400 Heart rate 68 /min DR JESSE HOLDEN MD [facility] 03-30-2023 09:25-0400 Systolic Blood Pressure Non-Invasive [address] JESSE HODLEN MD [facility] 03-30-2023 09:05-0400 Respiratory Rate - Anes 0 br/min DR JESSE HOLDEN MD [facility] 03-30-2023 09:00-0400 Respiratory Rate - Anes 24 br/min DR JESSE HOLDEN MD [facility] 03-30-2023 07:35-0400 Body temperature 98.06 [degF] DR JESSE HOLDEN MD [facility] 03-30-2023 07:35-0400 Heart rate 73 /min DR JESSE HOLDEN MD [facility] 03-30-2023 07:27-0400 Body height 171.[address] JESSE HOLDEN MD [facility] 03-30-2023 07:27-0400 Body weight 77.[address] JESSE HOLDEN MD [facility] 03-30-2023 07:27-0400 Body weight 26.31 kg/m2 DR JESSE HOLDEN MD [facility] 09-10-2022 08:53-0400 Diastolic blood pressure 85 mm[Hg] IMTIZA RANDA DO [facility] 09-10-2022 08:53-0400 Heart rate 60 /min IMTIAZ RANDA DO [facility] 09-10-2022 08:53-0400 Respiratory rate 16 /min IMTIAZ RANDA DO [facility] 09-10-2022 08:53-0400 Systolic blood pressure 106 mm[Hg] IMTIAZ RANDA DO [facility] 09-10-2022 08:41-0400 Diastolic blood pressure 71 mm[Hg] IMTIAZ RANDA DO [facility] 09-10-2022 08:41-0400 Heart rate 86 /min IMTIAZ RANDA DO [facility] 09-10-2022 08:41-0400 Respiratory rate 16 /min IMTIAZ RANDA DO [facility] 09-10-2022 08:41-0400 Systolic blood pressure 122 mm[Hg] IMTIAZ RANDA DO [facility] 09-10-2022 08:31-0400 Body temperature 96.8 [degF] IMTIAZ RANDA DO [facility] 09-10-2022 08:31-0400 Diastolic blood pressure 72 mm[Hg] IMTIAZ RANDA DO [facility] 09-10-2022 08:31-0400 Heart rate 75 /min IMTIAZ RANDA DO [facility] 09-10-2022 08:31-0400 Respiratory rate 16 /min IMTIAZ RANDA DO [facility] 09-10-2022 08:31-0400 Systolic blood pressure 135 mm[Hg] IMTIAZ RANDA DO [facility] 09-10-2022 08:25-0400 Diastolic Blood Pressure NBP 89 1 IMTIAZ RANDA DO [facility] 09-10-2022 08:25-0400 Systolic Blood Pressure NBP 131 1 IMTIAZ RANDA DO [facility] 09-10-2022 08:20-0400 Diastolic Blood Pressure NBP 94 1 IMTIAZ RANDA DO [facility] 09-10-2022 08:20-0400 Systolic Blood Pressure NBP 120 1 IMTIAZ RANDA DO [facility] 09-10-2022 08:15-0400 Diastolic Blood Pressure NBP 104 1 IMTIAZ RANDA DO [facility] 09-10-2022 08:15-0400 Systolic Blood Pressure NBP 139 1 IMTIAZ RANDA DO [facility] 09-10-2022 07:27-0400 Body height 167.2 cm IMTIAZ RANDA DO [facility] 09-10-2022 07:27-0400 Body weight 78 kg IMTIAZ RANDA DO [facility] 09-10-2022 07:27-0400 Body weight 27.9 kg/m2 IMTIAZ RANDA DO [facility] 09-10-2022 07:14-0400 Body height 167.2 cm IMTIAZ RANDA DO [facility] 09-10-2022 07:14-0400 Body temperature 96.8 [degF] IMTIAZ ROMEROY DO [facility] 09-10-2022 07:140400 Body weight 78 kg IMTIAZ TOLENTINO DO [facility] 09-10-2022 07:140400 Heart rate 80 /min IMTIAZ TOLENTINO DO [facility] Encounters Encounter Date Encounter Type Care Provider Facility Start: 09-11-2025 ambulatory Joyce Lynn Facility:[facility] Start: 08-24-2025 End: 08-24-[address] JOYCE LYNN DO [facility] Start: 08-24-2025 End: 08-24-2025 Patient encounter procedure ROSAURA MILLARD APRN_CNP [facility] Start: 07-08-2025 End: 07-08-[address] JOYCE LYNN DO [facility] Start: 07-08-2025 End: 07-08-2025 Patient encounter procedure ROSAURA MILLARD APRN_CNP [facility] Start: 06-12-2025 End: 06-12-[address] JOYCE LYNN DO [facility] Start: 06-12-2025 End: 06-12-[address] JOYCE LYNN DO [facility] Start: 05-29-2025 End: 06-02-[address] JOYCE LYNN DO [facility] Start: 05-29-2025 End: 06-02-2025 Outreach Lab PHILIP ALDANA SUPERVISOR TILE AND MOTTLE-CAPACITY PLANNING ENGINEER [facility] Start: 05-18-2025 End: 05-18-[address] JOYCE LYNN DO [facility] Start: 05-18-2025 End: 05-18-[address] JOYCE LYNN DO [facility] Start: 05-04-2025 End: 05-04-[address] JOYCE LYNN DO [facility] Start: 05-04-2025 End: 05-04-[address] JOYCE LYNN DO [facility] Start: 04-29-2025 End: 04-29-[address] JOYCE LYNN DO [facility] Start: 04-29-2025 End: 04-29-[address] JOYCE LYNN DO [facility] Start: 03-27-2025 End: 05-30-[address] JOYCE LYNN DO [facility] Start: 03-27-2025 End: 05-30-[address] JOYCE LYNN DO [facility] Start: 03-21-2025 End: 03-25-[address] JOYCE LYNN DO [facility] Start: 03-21-2025 End: 03-25-[address] JOYCE LYNN DO [facility] Start: 03-08-2025 End: 03-08-[address] JOYCE LYNN DO [facility] Start: 01-16-2025 End: 01-16-[address] JOYCE LYNN DO [facility] Start: 01-16-2025 End: 01-16-[address] JOYCE LYNN DO [facility] Start: 01-06-[address] JOYCE LYNN DO Facili ty[facility] Start: 01-03-2025 End: 01-07-[address] JOYCE LYNN DO [facility] Start: 01-03-2025 End: 01-07-[address] JOYCE LYNN DO [facility] Start: 01-03-2025 End: 01-03-2025 ambulatory STEVEN MCMAHAN INSULATION NOZZLEMAN-C Facility:[facility] Start: 01-03-2025 End: 01-03-2025 Patient encounter procedure STEVEN MCMAHAN INSULATION NOZZLEMAN-C [facility] Start: 09-05-2024 End: 09-05-[address] JOYCE LYNN DO [facility] Start: 09-05-2024 End: 09-05-2024 Patient encounter procedure JESSICA VALDEZ SUPERVISOR TILE [employer] MOTTLE-CAPACITY PLANNING ENGINEER [facility] Start: 07-07-2024 End: 07-07-[address] JOYCE LYNN DO Facility:[facility] Start: 06-09-2024 End: 06-09-2024 ambulatory JESSICA VALDEZ SUPERVISOR TILE AND MOTTLE-CAPACITY PLANNING ENGINEER Facility:[facility] Start: 06-09-2024 End: 06-09-2024 Patient encounter procedure JESSICA VALDEZ SUPERVISOR TI[employer] MOTTLE-CAPACITY PLANNING ENGINEER [facility] Start: 02-08-2024 End: 02-08-[address] JOYCE LYNN DO Facility:[facility] Start: 02-08-2024 End: 02-08-[address] JOYCE LYNN DO [facility] Start: 01-18-2024 End: 01-18-2024 ambulatory HAYES REEDER MD Facility:[facility] Start: 08-08-2023 End: 08-08-2023 ambulatory HAIDER ZAPATA DO Facility:[facility] Start: 08-08-2023 End: 08-08-[address] JOYCE LYNN DO [facility] Start: 07-08-2023 End: 07-08-[address] JOYCE LYNN DO [facility] Start: 07-01-2023 End: 07-01-2023 ambulatory [facility] Work Phone: Start: 07-01-2023 End: 07-01-2023 Patient encounter procedure [facility] Work Phone: Start: 03-30-2023 End: 03-30-[address] JESSE HOLDEN MD [facility] Start: 11-18-2022 End: 11-18-[address] JOYCE LYNN DO [facility] Start: 09-10-2022 End: 09-10-2022 Minor Procedure IMTIAZ TOLENTINO DO [facility] Start: 06-14-2022 End: 06-14-2022 Patient encounter procedure DAMIÁN NI CAPACITY PLANNING ENGINEER [facility] Start: 02-22-2022 End: 02-22-2022 Patient encounter procedure HAIDER ZAPATA DO [facility] Start: 10-09-2021 End: 12-16-[address] KATHIA GARVEY DO [facility] Procedures Date Procedure Procedure Detail Performing Clinician Start: 11-23-2023 Genus Meniscus (organism) JESSICA JOSÉ MIGUEL APR N-CAPACITY PLANNING ENGINEER Start: 07-01-2023 Screening mammography Start: 04-01-2023 Esophagogastroduodenoscopy with clipping for control of hemorrhage of esophagus DR JOYCE LYNN DO Start: 09-10-2022 Colonoscopy IMTIAZ TOLENTINO DO Acquired trigger finger (disorder) IMTIAZ TOLENTINO DO Arthroscopic repair of rotator cuff DR JESSE HOLDEN MD Laparoscope, device (physical object) DR JESSE HOLDEN MD Wrist region structu re (body structure) IMTIAZ TOLENTINO DO Immunizations Immunization Date Immunization Notes Care Provider Octavio garzon 06-23-2023 pneumococcal polysaccharide vaccine, 23 valent; Translations: [Pneumovax 23] DR JOYCE LYNN DO [facility] 01-14-2016 pneumococcal conjuga te vaccine, 13 valent DAMIÁN [facility] 09-13-2015 tetanus toxoid, redu kelly diphtheria toxoid, and acellular pertussis vaccine, adsorbed DAMIÁN [facility] Payers Date Payer Category Payer Self-pay [id number] 2024 Medicare [id number] 2023 Medicare [id number] 2023 Unknown [id number] 2022 Medicare [id number] 2022 Private Health Insurance [facility] [id number] 2022 Unknown [id number] 2013 Unknown ANTHEM [id number] 1957 Unknown [id number] 2.16.8 40.1.401370.3.579.2.7 1957 Unknown [id number] 2.16.8 40.1.004522.3.579.2. 1957 Unknown [id number] 2.16.8 40.1.880249.3.579.2. 1957 Unknown [id number] 2.16.8 40.1.697144.3.579.2. 1957 Unknown [id number] 2.16.8 40.1.661415.3.579.2. 1957 Unknown [id number] 2.16.8 40.1.798303.3.579.2.627 1957 Unknown [id number] 2.16.8 40.1.734448.3.579.2. 1957 Unknown [id number] 2.16. 840.1.329352.3.579.2.62 1957 Unknown [id number] 2.16. 840.1.190732.3.579.2.627 1957 Unknown [id number] 2.16. 840.1.362038.3.579.2. 1957 Unknown [id number] 2.16. 840.1.462536.3.579.2. 1957 Unknown [id number] 2.16. 840.1.762690.3.579.2. 1957 Unknown [id number] 2.16. 840.1.635610.3.579.2. 1957 Unknown [id number] 2.16. 840.1.844535.3.579.2. 1957 Unknown [id number] 2.16. 840.1.623132.3.579.2. 1957 Unknown [id number] 2.16. 840.1.023688.3.579.2. 1957 Unknown [id number] 2.16.8 40.1.923698.3.579.2. 1957 Unknown [id number] 2.16.8 40.1.938237.3.579.2. 1957 Unknown [id number] 2.16.8 40.1.860938.3.579.2. 1957 Unknown [id number] 2.16.8 40.1.499733.3.579.2. 1957 Unknown [id number] 2.16.8 40.1.178121.3.579.2. 1957 Unknown [id number] 2.16.8 40.1.992375.3.579.2. 1957 Unknown [id number] 2.16.8 40.1.132272.3.579.2. 1957 Unknown [id number] 2.16.8 40.1.164130.3.579.2. 1957 Unknown [id number] 2.16.8 40.1.515752.3.579.2.627 Unknown [id number] 2.16.8 40.1.382011.3.579.2.462 Social History Date Type Detail Facility Start: 12-27-2019 End: 02-07-2025 Never smoked tobacco (finding) [facility] Sex Assigned [facility] Start: 1955 Sex Assigned At Female [facility] Start: 01-01-2006 Sex Female (finding) [facility] Medical Equipment Procedure Code Equipment Code Equipment Origin al Text Equipment Identifier Dates Unknown Unknown 11/23/15 Unknown Unknown FDA Start: 11-23-2015 Unknown Unknown 11/23/17 Unknown Unknown FDA Start: 11-23-2017 Unknown Unknown 11/23/15 Unknown Unknown FDA Start: 11-23-2015 Unknown Unknown 11/23/17 Unknown Unknown FDA Start: 11-23-2017 Unknown Unknown 11/23/15 Unknown Unknown FDA Start: 11-23-2015 Unknown Unknown 11/23/17 Unknown Unknown FDA Start: 11-23-2017 Unknown Unknown 11/23/15 Unknown Unknown FDA Start: 11-23-2015 Unknown Unknown 11/23/17 Unknown Unknown FDA Start: 11-23-2017 Unknown Unknown 11/23/15 Unknown Unknown FDA Start: 11-23-2015 Unknown Unknown 11/23/17 Unknown Unknown FDA Start: 11-23-2017 Unknown Unknown 11/23/15 Unknown Unknown FDA Start: 11-23-2015 Unknown Unknown 11/23/17 Unknown Unknown FDA Start: 11-23-2017 Unknown Unknown 11/23/15 Unknown Unknown FDA Start: 11-23-2015 Unknown Unknown 11/23/17 Unknown Unknown FDA Start: 11-23-2017 Unknown Unknown 11/23/15 Unknown Unknown FDA Start: 11-23-2015 Unknown Unknown 11/23/17 Unknown Unknown FDA Start: 11-23-2017 Unknown Unknown 11/23/15 Unknown Unknown FDA Start: 11-23-2015 Unknown Unknown 11/23/17 Unknown Unknown FDA Start: 11-23-2017 Unknown Unknown 11/23/15 Unknown Unknown FDA Start: 11-23-2015 Unknown Unknown 11/23/17 Unknown Unknown FDA Start: 11-23-2017 Unknown Unknown 11/23/15 Unknown Unknown FDA Start: 11-23-2015 Unknown Unknown 11/23/17 Unknown Unknown FDA Start: 11-23-2017 Unknown Unknown 11/23/15 Unknown Unknown FDA Start: 11-23-2015 Unknown Unknown 11/23/17 Unknown Unknown FDA Start: 11-23-2017 Unknown Unknown 11/23/15 Unknown Unknown FDA Start: 11-23-2015 Unknown Unknown 11/23/17 Unknown Unknown FDA Start: 11-23-2017 Unknown Unknown 11/23/15 Unknown Unknown FDA Start: 11-23-2015 Unknown Unknown 11/23/17 Unknown Unknown FDA Start: 11-23-2017 Unknown Unknown 11/23/15 Unknown Unknown FDA Start: 11-23-2015 Unknown Unknown 11/23/17 Unknown Unknown FDA Start: 11-23-2017 Unknown Unknown 11/23/15 Unknown Unknown FDA Start: 11-23-2015 Unknown Unknown 11/23/17 Unknown Unknown FDA Start: 11-23-2017 Unknown Unknown 11/23/15 Unknown Unknown FDA Start: 11-23-2015 Unknown Unknown 11/23/17 Unknown Unknown FDA Start: 11-23-2017 Unknown Unknown 11/23/15 Unknown Unknown FDA Start: 11-23-2015 Unknown Unknown 11/23/17 Unknown Unknown FDA Start: 11-23-2017 Unknown Unknown 11/23/15 Unknown Unknown FDA Start: 11-23-2015 Unknown Unknown 11/23/17 Unknown Unknown FDA Start: 11-23-2017 Unknown Unknown 11/23/15 Unknown Unknown FDA Start: 11-23-2015 Unknown Unknown 11/23/17 Unknown Unknown FDA Start: 11-23-2017 Functional Status Date Assessment Result Facility 03-30-2023 Functional Status Awake, Repositions self, Resting [facility] 03-30-2023 Functional Status Maintained [facility] 09-10-2022 Functional Status Awake [facility] 09-10-2022 Functional Status Maintained [facility] Mental Status Date Assessment Result Facility 03-30-2023 Mental Status Oriented x 4 [facility] 03-30-[address] [facility] 09-10-2022 Mental Status Orientation Oriented x 4 [facility] 09-10-2022 [facility] Clinical Notes 09-08-2022 to 06-12-2025 Note Date & Type Note Facility 06-12-2025 Note Exam Date Time Procedure Performing Provider Status 06/12/25 8:42 AM Echocardiogram, Adult - CV EMILY DIALLO MD; Auth (Verified) [facility]07-09-2025 Note. MICRO - Microbiology PROCEDURE: Urine Culture [*1] SOURCE: Urine, Clean Catch BODY SITE: COLLECTED DATE/TIME: 05/29/2025 16:10 EDT RECEIVED DATE/TIME: 05/30/2025 15:59 EDT START DATE/TIME: 05/30/2025 15:59 EDT FREE TEXT SOURCE: FINAL REPORTS Final Report [] Verified Date/Time/Personnel: 05/31/2025 14:51 EDT >100,000 cfu/ml Multiple bacterial morphotypes present. Probable Contamination. Suggest recollection if clinically indicated. PRELIMINARY REPORTS Preliminary Report [] Verified Date/Time/Personnel: 05/30/2025 16:59 EDT Specimen received in lab. Performing Locations *1: This test was performed at: [address], [address]- , [facility]05-01-2025 Note. MICRO - Microbiology PROCEDURE: Throat Culture [*1] SOURCE: Throat BODY SITE: COLLECTED DATE/TIME: 03/21/2025 14:11 EDT RECEIVED DATE/TIME: 03/21/2025 18:41 EDT START DATE/TIME: 03/21/2025 18:41 EDT FREE TEXT SOURCE: FINAL REPORTS Final Report [] Verified Date/Time/Personnel: 03/23/2025 07:06 EDT Normal throat atd present Sensitivity Testing: Not Indicated PRELIMINARY REPORTS Preliminary Report [] Verified Date/Time/Personnel: 03/22/2025 07:44 EDT Negative for upper respiratory pathogens at 24 hours. Performing Locations *1: This test was performed at: [address] [place], [address]- , [facility]02-24-2025 Note* Exam Date Time Procedure Performing Provider Status 01/16/25 10:15 AM US Pelvis Non-OB W/Transvaginal DONTA SOTO DO; Auth (Verified) [id number] ORIGINAL EXAMINATION: TRANSVAGINAL PELVIC ULTRASOUND 01/16/2025 TECHNIQUE: Transvaginal pelvic ultrasound was performed. COMPARISON: None HISTORY: ORDERING SYSTEM PROVIDED HISTORY: Reason for Exam: suprapubic and pelvic pain FINDINGS: Measurements: Uterus: 3.2 x 5.1 x 3.5 cm Endometrial stripe: 7.6 mm Right Ovary:1.5 x 0.9 x 0.9 Left Ovary: Not measured. Ultrasound Findings: Uterus: Uterus demonstrates multiple nabothian cysts. There is no discrete solid or cystic uterine mass. Endometrial stripe: Endometrium measures 7.6 mm slightly prominent for a postmenopausal female. Right Ovary: Right ovary is within normal limits. Left Ovary: Left ovary is not diagnostically imaged. Free Fluid: No evidence of free fluid. IMPRESSION: 1. Slightly prominent endometrial stripe for a postmenopausal female measuring 7.6 mm. Consider correlation with cytology as clinically required. 2. Multiple nabothian cysts. 3. Nonvisualization of the left ovary. Interpreted by: Donta Soto DO Preliminary Report By: Donta Soto DO Electronically signed By Donta Soto DO Dictated Date: 01/16/2025 4:01:22 PM Prelim Date: 01/16/2025 4:06:16 PM Sign Date: 01/16/2025 4:06:16 PM Ordering Provider: JOYCE LYNN [facility]02-13-2025 Note. MICRO - Microbiology PROCEDURE: Urine Culture [*1] SOURCE: Urine, Clean Catch BODY SITE: COLLECTED DATE/TIME: 01/03/2025 14:10 EST RECEIVED DATE/TIME: 01/03/2025 21:21 EST START DATE/TIME: 01/03/2025 21:21 EST FREE TEXT SOURCE: FINAL REPORTS Final Report [] Verified Date/Time/Personnel: 01/05/2025 07:57 EST 10,000 - 50,000 cfu/ml Mixed growth consistent with normal urogenital tad. PRELIMINARY REPORTS Preliminary Report [] Verified Date/Time/Personnel: 01/04/2025 08:38 EST No growth to date Performing Locations *1: This test was performed at: , [address] [place] [address], [address] , [facility]05-08-2023 Evaluation + Plan noteExtracted from: Title:Clinical Document Author:JESSE HOLDEN Date:03/30/23 KEENE ADMISSION HISTORY AN D PHYSICIAL CHIEF COMPLAINT: HISTORY OF PRESENT ILLNESS: REVIEW OF SYSTEMS: ACTIVE PROBLEMS: (12) Acute maxillary sinusitis (066328193) Chronic back pain greater than 3 months duration (8397059781) Fibromyalgia (592625802) Gastroesophageal reflux (781144427) Hiatal hernia (629991058) Leg cramping (6499265828) Osteopenia (687365837) Osteoporosis (405966127) Prediabetes (7677887455) Sinusitis (00633821) Split S1 (first heart sound) (177679114) T12 vertebral fracture (3651436209) MEDICATIONS: Active Inpt Meds: None Active PRN Meds: None One Time Meds: None Active IV Meds: Lactated Ringers Infusion 1,000 mL (LR 1,000 mL) Start: 03/30/23 7:15:00 EDT, Rate: 50 mL/hr, 03/30/23 7:15:00 EDT ALLERGIES: (2) penicillin sulfa drug FAMILY HISTORY: SOCIAL HISTORY: PHYSICAL EXAM: VITALS: RvjdraTdyuMEUrglgXGEeJ3ZJW6JndwGc(kg) 03/30 07:3536.7--73--97RA03/30 77.3 24 Hr Tmax: 36.7 at 03/30 07:35 36 Hr Tmax: 36.7 at 03/30 07:35 Vital Signs are the last 5 in the past 48 hours. Weights display the last 5 within 7 days. Initial Wt: 03/30 77.3 kg 170 lb Current Wt: 03/30 77.3 kg 170 lb GENERAL: HEENT: CARDIOVASCULAR: RESPIRATORY: ABDOMEN: EXREMETIES: NEUROLOGICAL: PSYCHIATRIC: LABS: No 36hr Lab Data DIAGNOSTICS: IMPRESSION: PLAN: History and Physical Update I have examined the patient; reviewed the H&P and there are no changes to the H&P unless noted below. Future Appointments Appointment Date:06/23/2023 08:00:00 AM Scheduled Provider:JOYCE LYNN DO Location:[facility] Appointment Type:[facility] Medicare [facility] 05-08-2023 Hospital Discharge instructions Patient Education 03/30/2023 09:15:17 Monitored Anesthesia Care, Care After Monitored Anesthesia Care, Care After These instructions provide you with information about caring for yourself after your procedure. Your health care provider may also give you more specific instructions. Your treatment has been plannedaccording to current medical practices, but problems sometimes occur. Call your health care provider if you have any problems or questions after your procedure. What can I expect after the procedure? After your procedure, you may: Feel sleepy for several hours. Feel clumsy and have poor balance for several hours. Feel forgetful about what happened after the procedure. Have poor judgment for several hours. Feel nauseous or vomit. Have a sore throat if you had a breathing tube during the procedure. Follow these instructions at home: For at least 24 hours after the procedure: Have a responsible adult stay with you. It is important to have someone help care for you until youare awake and alert. Rest as needed. Do not: ?Participate in activities in which you could fall or become injured. ?Drive. ?Use heavy machinery. ?Drink alcohol. ?Take sleeping pills or medicines that cause drowsiness. ?Make important decisions or sign legal documents. ?Take care of children on your own. Eating and drinking Follow the diet that is recommended by your health care provider. If you vomit, drink water, juice, or soup when you can drink without vomiting. Make sure you have little or no nausea before eating solid foods. General instructions Take otlp-lci-nwmvicc and prescription medicines only as told by your health care provider. If you have sleep apnea, surgery and certain medicines can increase your risk for breathing problems. Follow instructions from your health care provider about wearing your sleep device: ?Anytime you are sleeping, including during daytime naps. ?While taking prescription pain medicines, sleeping medicines, or medicines that make you drowsy. If you smoke, do not smoke without supervision. Keep all follow-up visits as told by your health care provider. This is important. Contact a health care provider if: You keep feeling nauseous or you keep vomiting. You feel light-headed. You develop a rash. You have a fever. Get help right away if: You have trouble breathing. Summary For several hours after your procedure, you may feel sleepy and have poor judgment. Have a responsible adult stay with you for at least 24 hours or until you are awake and alert. This information is not intended to replace advice given to you by your health care provider. Make sure you discuss any questions you have with your health care provider. Document Released: 03/01/2017 Document Revised: 02/07/2019 Document Reviewed: 03/01/2017 hive01 Patient Education 2020 [employer]. 03/30/2023 09:15:12 9 - AO Minor Esophagogastroduodenoscopy (02/03) (CUSTOM) Esophagogastroduodenoscopy This is an endoscopic procedure (a procedure that uses a device like a flexible telescope) that allows your caregiver to view the upper stomach and small bowel. This test allows your caregiver to look at the esophagus. The esophagus carries food from your mouth to your stomach. They can also look at your duodenum. This is the first part of the small intestine that attaches to the stomach. This adonis t is used to detect problems in the bowel such as ulcers and inflammation. MEANING OF TEST Your caregiver will go over the test results with you and discuss the importance and meaning of your results, as well as treatment options and the need for additional tests if necessary. OBTAINING THE TEST RESULTS Your caregiver s office will call you with the results of the test. POST SEDATION INSTRUCTIONS Rest at home today. Since your coordination may be impaired, be cautious on stairways, do not drive any vehicle or operate any heavy machinery, or use any sharp instruments for the remainder of the day. Do not drink any alcoholic beverages or make any major decisions for 24 hours. POST PROCEDURE INSTRUCTIONS Progress slowly with full liquids then resume previous diet and medications. Belching or passing of gas is to be expected. Notify the physician if you have severe chest pain, fever, or if difficulty when swallowing persists. 01/31/14 Custom Follow Up Care 03/20/2023 13:29:53 With:JESSE HOLDEN MD Address: [address] [phone] When: Unknown [facility] [place] 05-08-2023 Summary of episode note Discharge Instructions Thank you for allowing [facility] to assist you with your healthcare needs. The following is importantdischarge information regarding your hospital visit. Your Care Team JOYCE LYNN DO What to do next Scheduled Follow-Up Appointments Appointment Type When With Where Contact InformationPC Wellness Medicare 06/23/2023 08:00 AM EDT JOYCE LYNN DO [facility] [place] [address] [place] [address] Follow Up Appointments Follow Up with EJSSE HOLDEN MD When Where: [address] [place] [phone] The Following Activity and Diet Have Been Ordered for You Discharge Activity - Ordered -- NO activity restrictions, 03/30/23 9:10:00 EDT Discharge Diet - Ordered -- Follow the post-operative/post-procedure diet instructions provided by your physician's office.,03/30/23 9:10:00 EDT Allergies penicillin (Hives) sulfa drug (Unknown) Medications Please ask your primary doctor or pharmacist before taking any other medication not listed, including over the counter drugs, herbal medications, vitamins and or supplements as they may interact withur home medications. What How Much When Instructions Last Dose Unchanged cholecalciferol (D3-50 (50,000 units) oral capsule) 1 cap by mouth Every week Unchanged levothyroxine (levothyroxine 75 mcg (0.075 mg) oral tablet) 1 tab(s) by mouth Once a day Unchanged Misc Medication (Hormone replacements) Please take this list to your next doctor s visit. Bring all medications you take, including over the counter medications, herbals and other supplements with you to your doctor s visit. Patients and families are reminded to discard old lists and to update any records with all medication providers or retail pharmacies. Education Materials Monitored Anesthesia Care, Care After These instructions provide you with information about caring for yourself after your procedure. Your health care provider may also give you more specific instructions. Your treatment has been plannedaccording to current medical practices, but problems sometimes occur. Call your health care provider if you have any problems or questions after your procedure. What can I expect after the procedure? After your procedure, you may: Feel sleepy for several hours. Feel clumsy and have poor balance for several hours. Feel forgetful about what happened after the procedure. Have poor judgment for several hours. Feel nauseous or vomit. Have a sore throat if you had a breathing tube during the procedure. Follow these instructions at home: For at least 24 hours after the procedure: Have a responsible adult stay with you. It is important to have someone help care for you until youare awake and alert. Rest as needed. Do not: ? Participate in activities in which you could fall or become injured. ? Drive. ? Use heavy machinery. ? Drink alcohol. ? Take sleeping pills or medicines that cause drowsiness. ? Make important decisions or sign legal documents. ? Take care of children on your own. Eating and drinking Follow the diet that is recommended by your health care provider. If you vomit, drink water, juice, or soup when you can drink without vomiting. Make sure you have little or no nausea before eating solid foods. General instructions Take fcia-fir-vzlhcbf and prescription medicines only as told by your health care provider. If you have sleep apnea, surgery and certain medicines can increase your risk for breathing problems. Follow instructions from your health care provider about wearing your sleep device: ? Anytime you are sleeping, including during daytime naps. ? While taking prescription pain medicines, sleeping medicines, or medicines that make you drowsy. If you smoke, do not smoke without supervision. Keep all follow-up visits as told by your health care provider. This is important. Contact a health care provider if: You keep feeling nauseous or you keep vomiting. You feel light-headed. You develop a rash. You have a fever. Get help right away if: You have trouble breathing. Summary For several hours after your procedure, you may feel sleepy and have poor judgment. Have a responsible adult stay with you for at least 24 hours or until you are awake and alert. This information is not intended to replace advice given to you by your health care provider. Make sure you discuss any questions you have with your health care provider. Document Released: 03/01/2017 Document Revised: 02/07/2019 Document Reviewed: 03/01/2017 hive01 Patient Education 2020 [employer] Esophagogastroduodenoscopy This is an endoscopic procedure (a procedure that uses a device like a flexible telescope) that allows your caregiver to view the upper stomach and small bowel. This test allows your caregiver to look at the esophagus. The esophagus carries food from your mouth to your stomach. They can also look at your duodenum. This is the first part of the small intestine that attaches to the stomach. This adonis t is used to detect problems in the bowel such as ulcers and inflammation. MEANING OF TEST Your caregiver will go over the test results with you and discuss the importance and meaning of your results, as well as treatment options and the need for additional tests if necessary. OBTAINING THE TEST RESULTS Your caregiver s office will call you with the results of the test. POST SEDATION INSTRUCTIONS Rest at home today. Since your coordination may be impaired, be cautious on stairways, do not drive any vehicle or operate any heavy machinery, or use any sharp instruments for the remainder of the day. Do not drink any alcoholic beverages or make any major decisions for 24 hours. POST PROCEDURE INSTRUCTIONS Progress slowly with full liquids then resume previous diet and medications. Belching or passing of gas is to be expected. Notify the physician if you have severe chest pain, fever, or if difficulty when swallowing persists. 01/31/14 Custom Additional Information VACCINATE! IT SAVES LIVES! Members of the community who have not yet received the COVID-19 vaccine and would like to receive it can visit one of [facility] vaccine clinics. There are many vaccine clinic locations within the [facility]. For locations and available times, please visit https://gettheshot.coronavirus.[place].gov/. It is important to note that some COVID mobile vaccine clinics are held outdoors and may be canceled in rainy or stormy conditions. To learn more about pediatric vaccinations (ages 5-11), we invite you to visit the [facility] webpage. https://www.[facility].org/pages/2458-Ncwad-Pykykfqzerp-Infxcgjhkp-Lzzsv-Fha stions.htmlTo learn more about the COVID-19 vaccine, we invite you to visit the CDC website for a list of frequently asked questions. https://www.cdc.gov/coronavirus/2019-ncov/vaccines/faq.html [facility] Patient Portal Access Instructions: Stay connected with your healthcare team and access your personal medical information anytime with the [facility] Patient Portal.If you would like a full copy of your medical records, please contact the Medical Records Department, Thursday through Thursday between 8a.m. and 4:30p.m. Please follow the directions below to access the portal: 1.Access the email account you provided upon registration to the hospital.2.Look for an invitation email from .3.Open the email and access the invitation link: Accept Invitation to [facility]4.Fill in the required ordaz to create your account. Sign into [email or web address] with your username and password that you created in the above steps to stay up to date. You can then view a summary of results, a summary of your visits, and the ability to download your summaries to your computer or send the information securely to a physician. Remember that your healthcare information is confidential, so carefully consider who you will allow to register on the [facility] Patient Portal for access to your information. You can also access the [facility] Patient Portal on the [employer] scotty. Simply click on Health Records under HealthData and then click on the [facility] logo. HOW TO SAFELY DISPOSE OF PRESCRIPTION MEDICATIONS Please use one of the following methods to safely dispose of your unused medications. 1.Use a drug disposal kit: the drug disposal pouch allows you to safely discard your old and unuseddrugs. Ask your nurse to give you one when you are discharged.2.Visit a local take-back location: Many local pharmacies and police departments have programs that collect old and unwanted prescriptiondrugs. Call your local pharmacy or go to http://bit.ly/0T6Bb8s to find one close to you.3.Make use of household items: Use cat litter or old coffee grounds to dispose medications if other options arenot available. Mix your drugs with these household products, seal them in an airtight container andthrow it into the garbage. Call [facility]: [phone] to be sure your drugs can be disposed of in this way. Some medicines may require a different approach.4.Never flush your medications down the toilet. IF YOU HAVE BEEN PRESCRIBED AN OPIOID FOR PAIN If you have been prescribed an opioid (such as hydrocodone, oxycodone or morphine), it is critical to understand the possible side effects and risks of opioid pain medications. Even when taken as directed, opioids can have several side effects including: Tolerance, meaning you might need to take more of a medication for the same pain relief. Nausea, vomiting and/or constipation. Sleepiness, dizziness, dry mouth, confusion, depression or itching. Physical dependence, meaning you have withdrawal symptoms when a medication is stopped, can develop within a few days. KNOW YOUR RESPONSIBILITIES It is important to know exactly how much and how often to take the opioid pain medications you are prescribed. Never take opioids in higher amounts or more often than prescribed. Do not combine opioids with alcohol or other drugs that cause drowsiness, such as benzodiazepines, also known as benzos, including diazepam and alprazolam, muscle relaxants or sleep aids. Never sell or share prescription opioids. This is illegal. Store opioids in a secure place and out of reach of others (including children, family, friends and visitors). The last page of this document has been signed and retained as a CHART COPY. Signatures Patient Education Materials Monitored Anesthesia Care, Care After 9 - AO Minor Esophagogastroduodenoscopy (02/03) (CUSTOM) Medication Leaflets My discharge plan and instructions have been reviewed and explained to me and I,LIZZIE COLLINS understand my current condition and have read and understand these discharge instructions. I have received a written copy of the plan/instructions. If I have questions, I am aware that I should contact my doctor. 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 Signature: Date/Time: Relationship to Patient: Witness Name/Signature: Date/Time: [facility]05-08-2023 Anesthesiology Consult note Patient: LIZZIE COLLINS Age: 67 years Sex: Female : 1955 Associated Diagnoses: None Author: JEREMIE MATA APRN-MARINE ENGINE MACHINIST Preoperative Information Time of last food or liquid consumption: 03/30/2023 00:00:00 Anesthesia history Patient's history: negative. Family's history: negative. Health Status Allergies: Allergic Reactions (Selected) Severity Not Documented Penicillin- Hives. Sulfa drug- Unknown., Allergies (2) ActiveReaction penicillinHives sulfa drugUnknown Current medications: (Selected) Inpatient Medications Ordered LR 1,000 mL: 50 mL/hr, Intravenous Documented Medications Documented D3-50 (50,000 units) oral capsule: 1,250 mcg, 1 cap(s), Oral, qWeek, 100 cap(s), 0 Refill(s) Hormone replacements: 0 Refill(s) levothyroxine 75 mcg (0.075 mg) oral tablet: 75 mcg, 1 tab(s), Oral, qDay, 30 tab(s), 0 Refill(s), Medications (1) Active Scheduled: (0) Continuous: (1) Lactated Ringers 1,000 mL 1,000 mL, Intravenous, 50 mL/hr PRN: (0) Problem list: Medical Acute maxillary sinusitis / SNOMED CT 934742696 / Confirmed Chronic back pain greater than 3 months duration / SNOMED CT 5353347652 / Confirmed Leg cramping / SNOMED CT 4398912150 / Confirmed Fibromyalgia / SNOMED CT 865198846 / Confirmed Split S1 (first heart sound) / SNOMED CT 702846912 / Confirmed T12 vertebral fracture / SNOMED CT 7598878243 / Confirmed Gastroesophageal reflux / SNOMED CT 231518957 / Confirmed Hiatal hernia / SNOMED CT 194935165 / Confirmed Osteopenia / SNOMED CT 977617837 / Confirmed Osteoporosis / SNOMED CT 283600124 / Confirmed Prediabetes / SNOMED CT 7090048082 / Confirmed Sinusitis / SNOMED CT 17832126 / Confirmed, Active Problems (12) Acute maxillary sinusitis Chronic back pain greater than 3 months duration Fibromyalgia Gastroesophageal reflux Hiatal hernia Leg cramping Osteopenia Osteoporosis Prediabetes Sinusitis Split S1 (first heart sound) T12 vertebral fracture Histories Past Medical History: No active or resolved past medical history items have been selected or recorded. Family History: Cancer Mother Father Hypertension Mother Osteoporosis Mother Sister Procedure history: Colonoscopy (805903236) on 09/10/2022 at 66 Years. Trigger finger (0882957301). Wrist (25711035). Laparoscope (666842486). Arthroscopic repair of rotator cuff (8234242068). Social History Social & Psychosocial Habits Alcohol 12/27/2019 Use: Never Substance Abuse 12/27/2019 Use: Never Tobacco 12/27/2019 Tobacco Use: Never (less than 100 in l Exposure to Tobacco Smoke Lives in non-smoking home Home/Environment 12/27/2019 Primary Head Lineman: Self Nutrition/Health 06/24/2022 Caffeine intake amount: Coffee 1 cup . Physical Examination Vital Signs 03/30/2023 9:05 EDT Heart Rate Monitored 73 bpm bpm Respiratory Rate - Anes 0 br/min br/min Systolic Blood Pressure Non-Invasive 128 mmHg mmHg Diastolic Blood Pressure Non-Invasive 79 mmHg mmHg 03/30/2023 9:00 EDT Respiratory Rate - Anes 24 br/min br/min Systolic Blood Pressure Non-Invasive 138 mmHg mmHg Diastolic Blood Pressure Non-Invasive 77 mmHg mmHg 03/30/2023 7:35 EDT Temperature Temporal Artery 36.7 DegC Peripheral Pulse Rate 73 bpm Systolic Blood Pressure Non-Invasive 133 mmHg Diastolic Blood Pressure Non-Invasive 95 mmHg SC Vital Signs(last 24 hrs) Last Charted Heart Rate Tijkejclh76 bpm (MARCH 30 09:05) MGS829 mmHg (MARCH 30 09:05) DBP79 mmHg (MARCH 30 09:05) BMI26.31 (MARCH 30 07:27) Measurements from flowsheet : Measurements 03/30/2023 7:27 EDT Height 171.4 cm Admission Weight 77.3 kg Weight Method Stated [place] Body Weight 62.70 kg BSA Admission 1.9 Body Mass Index 26.31 kg/m2 Pain assessment: Pain Assessment 03/30/2023 7:35 EDT Primary Pain Intensity 0 Pain Scale Type 0-10 Pain scale . General: Alert and oriented. Airway: Normal temporomandibular joint mobility, Normal mouth, Normal neck range of motion. Mallampati classification: III (soft palate, base of uvula visible). Dentition Evaluation: Denies loose/chipped teeth. Respiratory: Respirations are non-labored. Cardiovascular: Normal rate. Neurologic: Alert, Oriented. Review / Management Results review: No qualifying data available , Lab results 03/30/2023 9:09 EDT Anesthesiology Consultation Postanesthesia Evaluation* 03/30/2023 9:08 EDT Lactated Ringers Injection 400 mL mL 03/30/2023 9:07 EDT SN - CTm - Anesthesia Stop Time Anesthesia Stop Anesthesia Final Record 03/30/2023 9:07 EDT SN - GCD - ASA Class 2 03/30/2023 9:07 EDT SN - Proc - Anesthesia Type MAC SN - Proc - EBL 0 mL SN - Proc - Actual Procedure ESOPHAGOGASTRODUODENOSCOPY WITH BIOPSIES (Modified) 03/30/2023 9:06 EDT AO ENDO Procedure Record [facility] Procedure Record (Modified) 03/30/2023 9:05 EDT SN - Cul - Culture Type Tissue in Formalin SN - Cul - Kind Specimen 03/30/2023 9:05 EDT Heart Rate Monitored 73 bpm bpm Respiratory Rate - Anes 0 br/min br/min Systolic Blood Pressure Non-Invasive 128 mmHg mmHg Diastolic Blood Pressure Non-Invasive 79 mmHg mmHg Oxygen Saturation 99.2 % % 03/30/2023 9:04 EDT propofol 40 mg mg 03/30/2023 9:01 EDT SN - CTm - Anesthesia Start Time Anesthesia Start 03/30/2023 9:01 EDT SN - PP - Body Position Lateral Right Side-up Standard Intra-op 03/30/2023 9:01 EDT lidocaine 40 mg mg propofol 100 mg mg 03/30/2023 9:00 EDT Respiratory Rate - Anes 24 br/min br/min Systolic Blood Pressure Non-Invasive 138 mmHg mmHg Diastolic Blood Pressure Non-Invasive 77 mmHg mmHg Lactated Ringers Injection Begin Bag 1,000 mL mL 03/30/2023 8:58 EDT [place] History and Physical 03/30/2023 8:55 EDT SN - GCD - Post-operative Diagnosis GASTROESOHAGEAL REFLUX DISEASE SN - GCD - Case Level OPD Level 3 03/30/2023 8:54 EDT SN - CAt - Case Attendee SN - CAt - Case Attendee SN - CAt - Case Attendee SN - CAt - Case Attendee SN - CAt - Case Attendee SN - CAt - Case Attendee SN - CAt - Case Attendee SN - CAt - Case Attendee SN - CAt - Role Performed Primary Surgeon SN - CAt - Role Performed Aerospace Engineer 1 SN - CAt - Role Performed MARINE ENGINE MACHINIST SN - CAt - Role Performed Monogram Technician 03/30/2023 7:47 EDT Hand Right 03/30/2023 22 gauge Peripheral IV Activity: Insert new site Peripheral IV Dressing Condition: Clean, Dry, Intact Peripheral IV Dressing Activity: Applied, Transparent dressing Peripheral IV Line Status/Patency: Continuous infusion Peripheral IV Site Condition: No complications Peripheral IV Equipment: Extension set Peripheral IV Number of Attempts: 1 03/30/2023 7:35 EDT Temperature Temporal Artery 36.7 DegC Peripheral Pulse Rate 73 bpm Systolic Blood Pressure Non-Invasive 133 mmHg Diastolic Blood Pressure Non-Invasive 95 mmHg HI Primary Pain Intensity 0 Pain Scale Type 0-10 Pain scale Monitor Alarms On and Limits Checked Heart Sounds ICU S1S2 Heart Rhythm Regular Respirations Unlabored Respiratory Pattern Regular Cough None Oxygen Therapy Room air Oxygen Saturation 97 % Abdomen Description Non-distended, Soft Abdomen Palpation Non-Tender Urinary Elimination Voiding, no difficulties Skin Temperature Warm Skin Description [place], Normal for ethnicity Skin Integrity Intact Skin Moisture General Dry Neurological Symptoms Patient denies Extremity Movement Equal Characteristics of Speech Clear Level of Consciousness Alert EDUARDO Yes Strength All Extremities Strong Tone All Extremities Normal Sensation All Extremities Intact Affect/Behavior Appropriate, Calm, Cooperative Orientation Oriented x 4 Allergies Yes Consent Form Signed Yes History & Physical Update On Chart Yes History & Physical On Chart Yes Orientation Assessment Oriented x 4 Belongings At Bedside Pants, Shirt, Shoes, Undergarments Activity Status ADL Ambulating in osei Assistive Device None NPO Status Maintained Standard Safety ID band on, Allergy Band on, Bed in low position, Wheels locked, Non-Slip footwear,Precautions maintained Allergy Band on and Verified Yes Patient ID Band on and Verified Yes Implants Verified Yes Pacemaker/AICD Verified Yes (Modified) Anesthesia Consent Signed Yes Last Fluid Intake 03/29/2023 22:00 Last Food Intake 03/29/2023 18:00 03/30/2023 7:27 EDT Designated Person #1 We May Share THAD GONZALEZ [phone] Designated Person #1 Relationship Spouse Height 171.4 cm Admission Weight 77.3 kg Weight Method Stated [place] Body Weight 62.70 kg BSA Admission 1.9 Body Mass Index 26.31 kg/m2 Status No, per patient Sensory Deficits None Infectious Disease Symptoms Patient states no symptoms Infectious Disease Recent Exposure No Alcohol and Drug Use No Employee of Institutional Living No Health Care Employee No History of Exposure to TB No History of Positive Chest X-Ray for TB No History of Positive TB Skin Test No Homeless No Known Immunosuppression No Recent Immigrant No Resident of Institutional Living No Bloody Sputum No Fatigue No Fever No Loss of Appetite No Night Sweats No Persistent Cough > 3 Weeks No Weight Loss No Barriers to Learning None evident Teaching Method Explanation, Printed materials Preferred Written Language Malaysian Preferred Spoken Language Malaysian Information Given by Patient Patient's Current Physicians DR. LYNN PCP Discharge To, Anticipated Home with family care Prev Test Positive/Diagnosis w/COVID-19 No Current Quarantine/Isolated any Illness No Any Contact with Sick Animals/Birds No Traveled Anywhere in Last 30 Days No Yes Personal Devices, Patient Valuables None Admission Note-Nursing Procedure/Therapy Intake . Assessment and Plan [place] Society of Anesthesiologists (ASA) physical status classification: Class II. Anesthetic Preoperative Plan Anesthetic technique: MAC. Informed consent: signed by patient. Digitally Signed by JEREMIE MATA on 03/30/2023 09:12 AM [facility]05-08-2023 Anesthesiology Consult note Patient: LIZZIE COLLINS Age: 67 years Sex: Female : 1955 Associated Diagnoses: None Author: JEREMIE MATA Assessment Postanesthesia assessment Vitals: Vital signs from flowsheet : Vital Signs 03/30/2023 9:05 EDT Heart Rate Monitored 73 bpm bpm Respiratory Rate - Anes 0 br/min br/min Systolic Blood Pressure Non-Invasive 128 mmHg mmHg Diastolic Blood Pressure Non-Invasive 79 mmHg mmHg 03/30/2023 9:00 EDT Respiratory Rate - Anes 24 br/min br/min Systolic Blood Pressure Non-Invasive 138 mmHg mmHg Diastolic Blood Pressure Non-Invasive 77 mmHg mmHg 03/30/2023 7:35 EDT Temperature Temporal Artery 36.7 DegC Peripheral Pulse Rate 73 bpm Systolic Blood Pressure Non-Invasive 133 mmHg Diastolic Blood Pressure Non-Invasive 95 mmHg HI , Measurements from flowsheet . Mental status: alert & oriented x 4. Respiratory function: respirations are non-labored. Respiratory support: none. CV function: Normal rate. Cardiovascular support: none. Pain. Nausea status: see nursing documentation of medications. Postoperative hydration status: within normal limits. Digitally Signed by JEREMIE MATA on 03/30/2023 09:11 AM [facility]05-08-2023 Note [facility] ADMISSION HISTORY AND PHYSICIAL CHIEF COMPLAINT: HISTORY OF PRESENT ILLNESS: REVIEW OF SYSTEMS: ACTIVE PROBLEMS: (12) Acute maxillary sinusitis (664463301) Chronic back pain greater than 3 months duration (2961717372) Fibromyalgia (770757284) Gastroesophageal reflux (062206046) Hiatal hernia (578353314) Leg cramping (7226272922) Osteopenia (012081437) Osteoporosis (095660963) Prediabetes (7567111462) Sinusitis (62035887) Split S1 (first heart sound) (000584360) T12 vertebral fracture (3061647329) MEDICATIONS: Active Inpt Meds: None Active PRN Meds: None One Time Meds: None Active IV Meds: Lactated Ringers Infusion 1,000 mL (LR 1,000 mL) Start: 03/30/23 7:15:00 EDT, Rate: 50 mL/hr, 03/30/23 7:15:00 EDT ALLERGIES: (2) penicillin sulfa drug FAMILY HISTORY: SOCIAL HISTORY: PHYSICAL EXAM: VITALS: [id number](kg) 03/30 07:3536.7--73--97RA03/30 77.3 24 Hr Tmax: 36.7 at 03/30 07:35 36 Hr Tmax: 36.7 at 03/30 07:35 Vital Signs are the last 5 in the past 48 hours. Weights display the last 5 within 7 days. Initial Wt: 03/30 77.3 kg 170 lb Current Wt: 03/30 77.3 kg 170 lb GENERAL: HEENT: CARDIOVASCULAR: RESPIRATORY: ABDOMEN: EXREMETIES: NEUROLOGICAL: PSYCHIATRIC: LABS: No 36hr Lab Data DIAGNOSTICS: IMPRESSION: PLAN: History and Physical Update I have examined the patient; reviewed the H&P and there are no changes to the H&P unless noted below. Digitally Signed by JESSE HOLDEN MD on 03/30/2023 09:00 AM [facility]10-19-2022 Hospital Discharge instructions Patient Education 09/10/2022 08:40:01 Monitored Anesthesia Care, Care After Monitored Anesthesia Care, Care After These instructions provide you with information about caring for yourself after your procedure. Your health care provider may also give you more specific instructions. Your treatment has been plannedaccording to current medical practices, but problems sometimes occur. Call your health care provider if you have any problems or questions after your procedure. What can I expect after the procedure? After your procedure, you may: Feel sleepy for several hours. Feel clumsy and have poor balance for several hours. Feel forgetful about what happened after the procedure. Have poor judgment for several hours. Feel nauseous or vomit. Have a sore throat if you had a breathing tube during the procedure. Follow these instructions at home: For at least 24 hours after the procedure: Have a responsible adult stay with you. It is important to have someone help care for you until youare awake and alert. Rest as needed. Do not: ?Participate in activities in which you could fall or become injured. ?Drive. ?Use heavy machinery. ?Drink alcohol. ?Take sleeping pills or medicines that cause drowsiness. ?Make important decisions or sign legal documents. ?Take care of children on your own. Eating and drinking Follow the diet that is recommended by your health care provider. If you vomit, drink water, juice, or soup when you can drink without vomiting. Make sure you have little or no nausea before eating solid foods. General instructions Take ighr-ipj-jwihkia and prescription medicines only as told by your health care provider. If you have sleep apnea, surgery and certain medicines can increase your risk for breathing problems. Follow instructions from your health care provider about wearing your sleep device: ?Anytime you are sleeping, including during daytime naps. ?While taking prescription pain medicines, sleeping medicines, or medicines that make you drowsy. If you smoke, do not smoke without supervision. Keep all follow-up visits as told by your health care provider. This is important. Contact a health care provider if: You keep feeling nauseous or you keep vomiting. You feel light-headed. You develop a rash. You have a fever. Get help right away if: You have trouble breathing. Summary For several hours after your procedure, you may feel sleepy and have poor judgment. Have a responsible adult stay with you for at least 24 hours or until you are awake and alert. This information is not intended to replace advice given to you by your health care provider. Make sure you discuss any questions you have with your health care provider. Document Released: 03/01/2017 Document Revised: 02/07/2019 Document Reviewed: 03/01/2017 hive01 Patient Education 2020 [employer]. 09/10/2022 08:40:01 Colonoscopy, Adult, Care After Colonoscopy, Adult, Care After This sheet gives you information about how to care for yourself after your procedure. Your health care provider may also give you more specific instructions. If you have problems or questions, contact your health care provider. What can I expect after the procedure? After the procedure, it is common to have: A small amount of blood in your stool for 24 hours after the procedure. Some gas. Mild abdominal cramping or bloating. Follow these instructions at home: General instructions For the first 24 hours after the procedure: ?Do not drive or use machinery. ?Do not sign important documents. ?Do not drink alcohol. ?Do your regular daily activities at a slower pace than normal. ?Eat soft, ysza-kh-txmhrr foods. Take zaie-laa-fzzylug or prescription medicines only as told by your health care provider. Relieving cramping and bloating Try walking around when you have cramps or feel bloated. Apply heat to your abdomen as told by your health care provider. Use a heat source that your healthcare provider recommends, such as a moist heat pack or a heating pad. ?Place a towel between your skin and the heat source. ?Leave the heat on for 20 30 minutes. ?Remove the heat if your skin turns bright red. This is especially important if you are unable to feel pain, heat, or cold. You may have a greater risk of getting burned. Eating and drinking Drink enough fluid to keep your urine pale yellow. Resume your normal diet as instructed by your health care provider. Avoid heavy or fried foods thatare hard to digest. Avoid drinking alcohol for as long as instructed by your health care provider. Contact a health care provider if: You have blood in your stool 2 3 days after the procedure. Get help right away if: You have more than a small spotting of blood in your stool. You pass large blood clots in your stool. Your abdomen is swollen. You have nausea or vomiting. You have a fever. You have increasing abdominal pain that is not relieved with medicine. Summary After the procedure, it is common to have a small amount of blood in your stool. You may also have mild abdominal cramping and bloating. For the first 24 hours after the procedure, do not drive or use machinery, sign important documents, or drink alcohol. Contact your health care provider if you have a lot of blood in your stool, nausea or vomiting, a fever, or increased abdominal pain. This information is not intended to replace advice given to you by your health care provider. Make sure you discuss any questions you have with your health care provider. Document Released: 06/23/2005 Document Revised: 09/01/2018 Document Reviewed: 01/20/2017 hive01 Patient Education 2020 [employer]. Follow Up Care 07/03/2022 09:07:07 With:JOYCE LYNN DO Address: [address] [place] [id number] [phone] When: Unknown [facility] 10-19-2022 Summary of episode note Discharge Instructions Thank you for allowing [facility] to assist you with your healthcare needs. The following is importantdischarge information regarding your hospital visit. Your Care Team JOYCE LYNN DO, DR. What to do next Scheduled Follow-Up Appointments Appointment Type [facility] 10[facility]00 AM EDT JOYCE LYNN DO [address] [id number] Follow Up Appointments Follow Up with JOYCE LYNN DO When Where: [address] [place] [phone] The Following Activity and Diet Have Been Ordered for You Discharge Activity - Ordered -- Driving Restricted, No driving until tomorrow, 09/10/22 7:11:00 EDT Discharge Return to Work, School, or Sports (Discharge Return to status) - Ordered -- May return to: work, 09/10/22 7:11:00 EDT Discharge Diet - Ordered -- Type of Diet: Regular Diet, 09/10/22 7:11:00 EDT Allergies penicillin (Hives) sulfa drug (Unknown) Medications Please ask your primary doctor or pharmacist before taking any other medication not listed, including over the counter drugs, herbal medications, vitamins and or supplements as they may interact withyour home medications. What How Much When Instructions Last Dose Unchanged alendronate (alendronate 70 mg oral tablet) 1 tab(s) by mouth Every week Unchanged cholecalciferol (D3-50 (50,000 units) oral capsule) 1 cap by mouth Every week Unchanged levothyroxine (levothyroxine 75 mcg (0.075 mg) oral tablet) 1 tab(s) by mouth Once a day Unchanged Misc Medication (Hormone replacements) Unchanged omeprazole (omeprazole 20 mg oral delayed release capsule) 1 cap by mouth Once a day Duration: 60 Days Please take this list to your next doctor s visit. Bring all medications you take, including over the counter medications, herbals and other supplements with you to your doctor s visit. Patients and families are reminded to discard old lists and to update any records with all medication providers or retail pharmacies. Education Materials Monitored Anesthesia Care, Care After These instructions provide you with information about caring for yourself after your procedure. Your health care provider may also give you more specific instructions. Your treatment has been plannedaccording to current medical practices, but problems sometimes occur. Call your health care provider if you have any problems or questions after your procedure. What can I expect after the procedure? After your procedure, you may: Feel sleepy for several hours. Feel clumsy and have poor balance for several hours. Feel forgetful about what happened after the procedure. Have poor judgment for several hours. Feel nauseous or vomit. Have a sore throat if you had a breathing tube during the procedure. Follow these instructions at home: For at least 24 hours after the procedure: Have a responsible adult stay with you. It is important to have someone help care for you until youare awake and alert. Rest as needed. Do not: ? Participate in activities in which you could fall or become injured. ? Drive. ? Use heavy machinery. ? Drink alcohol. ? Take sleeping pills or medicines that cause drowsiness. ? Make important decisions or sign legal documents. ? Take care of children on your own. Eating and drinking Follow the diet that is recommended by your health care provider. If you vomit, drink water, juice, or soup when you can drink without vomiting. Make sure you have little or no nausea before eating solid foods. General instructions Take ohhh-dap-bsplieg and prescription medicines only as told by your health care provider. If you have sleep apnea, surgery and certain medicines can increase your risk for breathing problems. Follow instructions from your health care provider about wearing your sleep device: ? Anytime you are sleeping, including during daytime naps. ? While taking prescription pain medicines, sleeping medicines, or medicines that make you drowsy. If you smoke, do not smoke without supervision. Keep all follow-up visits as told by your health care provider. This is important. Contact a health care provider if: You keep feeling nauseous or you keep vomiting. You feel light-headed. You develop a rash. You have a fever. Get help right away if: You have trouble breathing. Summary For several hours after your procedure, you may feel sleepy and have poor judgment. Have a responsible adult stay with you for at least 24 hours or until you are awake and alert. This information is not intended to replace advice given to you by your health care provider. Make sure you discuss any questions you have with your health care provider. Document Released: 03/01/2017 Document Revised: 02/07/2019 Document Reviewed: 03/01/2017 hive01 Patient Education 2020 [employer]. Colonoscopy, Adult, Care After This sheet gives you information about how to care for yourself after your procedure. Your health care provider may also give you more specific instructions. If you have problems or questions, contact your health care provider. What can I expect after the procedure? After the procedure, it is common to have: A small amount of blood in your stool for 24 hours after the procedure. Some gas. Mild abdominal cramping or bloating. Follow these instructions at home: General instructions For the first 24 hours after the procedure: ? Do not drive or use machinery. ? Do not sign important documents. ? Do not drink alcohol. ? Do your regular daily activities at a slower pace than normal. ? Eat soft, mpns-pf-pxslib foods. Take aanh-awy-ocvedgf or prescription medicines only as told by your health care provider. Relieving cramping and bloating Try walking around when you have cramps or feel bloated. Apply heat to your abdomen as told by your health care provider. Use a heat source that your healthcare provider recommends, such as a moist heat pack or a heating pad. ? Place a towel between your skin and the heat source. ? Leave the heat on for 20 30 minutes. ? Remove the heat if your skin turns bright red. This is especially important if you are unable to feel pain, heat, or cold. You may have a greater risk of getting burned. Eating and drinking Drink enough fluid to keep your urine pale yellow. Resume your normal diet as instructed by your health care provider. Avoid heavy or fried foods thatare hard to digest. Avoid drinking alcohol for as long as instructed by your health care provider. Contact a health care provider if: You have blood in your stool 2 3 days after the procedure. Get help right away if: You have more than a small spotting of blood in your stool. You pass large blood clots in your stool. Your abdomen is swollen. You have nausea or vomiting. You have a fever. You have increasing abdominal pain that is not relieved with medicine. Summary After the procedure, it is common to have a small amount of blood in your stool. You may also have mild abdominal cramping and bloating. For the first 24 hours after the procedure, do not drive or use machinery, sign important documents, or drink alcohol. Contact your health care provider if you have a lot of blood in your stool, nausea or vomiting, a fever, or increased abdominal pain. This information is not intended to replace advice given to you by your health care provider. Make sure you discuss any questions you have with your health care provider. Document Released: 06/23/2005 Document Revised: 09/01/2018 Document Reviewed: 01/20/2017 hive01 Patient Education 2020 [employer]. Additional Information VACCINATE! IT SAVES LIVES! Members of the community who have not yet received the COVID-19 vaccine and would like to receive it can visit one of [facility] vaccine clinics. There are many vaccine clinic locations within the [facility]. For locations and available times, please visit [email or web address]/. It is important to note that some COVID mobile vaccine clinics are held outdoors and may be canceled in rainy or stormy conditions. To learn more about pediatric vaccinations (ages 5-11), we invite you to visit the [facility] webpage. [email or web address]/pages/[email or web address]-[email or web address]-[email or web address] stions.htmlTo learn more about the COVID-19 vaccine, we invite you to visit the [employer] website for a list of frequently asked questions. [email or web address] _[email or web address]-Questions.[email or web address] [facility] Patient Portal Access Instructions: Stay connected with your healthcare team and access your personal medical information anytime with the [facility] Patient Portal.If you would like a full copy of your medical records, please contact the Medical Records Department, Thursday through Thursday between 8a.m. and 4:30p.m. Please follow the directions below to access the portal: 1.Access the email account you provided upon registration to the [facility].2.Look for an invitation email from .3.Open the email and access the invitation link: Accept Invitation to [facility]4.Fill in the required ordaz to create your account. Sign into www.[employer] with your username and password that you created in the above steps to stay up to date. You can then view a summary of results, a summary of your visits, and the ability to download your summaries to your computer or send the information securely to a physician. Remember that your healthcare information is confidential, so carefully consider who you will allow to register on the [facility] Patient Portal for access to your information. You can also access the [facility] Patient Portal on the [employer]. Simply click on Health Records under HealthData and then click on the [employer] logo. HOW TO SAFELY DISPOSE OF PRESCRIPTION MEDICATIONS Please use one of the following methods to safely dispose of your unused medications. 1.Use a drug disposal kit: the drug disposal pouch allows you to safely discard your old and unuseddrugs. Ask your nurse to give you one when you are discharged.2.Visit a local take-back location: Many local pharmacies and police departments have programs that collect old and unwanted prescriptiondrugs. Call your local pharmacy or go to http://bit.[employer]/9S2Cx9w to find one close to you.3.Make use of household items: Use cat litter or old coffee grounds to dispose medications if other options arenot available. Mix your drugs with these household products, seal them in an airtight container andthrow it into the garbage. Call [facility]: [phone] to be sure your drugs can be disposed of in this way. Some medicines may require a different approach.4.Never flush your medications down the toilet. IF YOU HAVE BEEN PRESCRIBED AN OPIOID FOR PAIN If you have been prescribed an opioid (such as hydrocodone, oxycodone or morphine), it is critical to understand the possible side effects and risks of opioid pain medications. Even when taken as directed, opioids can have several side effects including: Tolerance, meaning you might need to take more of a medication for the same pain relief. Nausea, vomiting and/or constipation. Sleepiness, dizziness, dry mouth, confusion, depression or itching. Physical dependence, meaning you have withdrawal symptoms when a medication is stopped, can develop within a few days. KNOW YOUR RESPONSIBILITIES It is important to know exactly how much and how often to take the opioid pain medications you are prescribed. Never take opioids in higher amounts or more often than prescribed. Do not combine opioids with alcohol or other drugs that cause drowsiness, such as benzodiazepines, also known as benzos, including diazepam and alprazolam, muscle relaxants or sleep aids. Never sell or share prescription opioids. This is illegal. Store opioids in a secure place and out of reach of others (including children, family, friends and visitors). The last page of this document has been signed and retained as a CHART COPY. Signatures Patient Education Materials Monitored Anesthesia Care, Care After Colonoscopy, Adult, Care After Medication Leaflets My discharge plan and instructions have been reviewed and explained to me and I,LIZZIE COLLINS understand my current condition and have read and understand these discharge instructions. I have received a written copy of the plan/instructions. If I have questions, I am aware that I should contact my doctor. 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 Signature: Date/Time: Relationship to Patient: Witness Name/Signature: Date/Time: Yessica [facility]10-19-2022 Anesthesiology Consult note Patient: LIZZIE COLLINS Age: 66 years Sex: Female : 1955 Associated Diagnoses: None Author: KATLIN MITTAL Assessment Postanesthesia assessment Vitals: Vital signs from flowsheet : Vital Signs 09/10/2022 8:25 EDT Heart Rate Monitored 82 bpm bpm Respiratory Rate 33 br/min br/min Systolic Blood Pressure NBP 131 mmHg mmHg Diastolic Blood Pressure NBP 89 mmHg mmHg 09/10/2022 8:20 EDT Heart Rate Monitored 77 bpm bpm Respiratory Rate 24 br/min br/min Systolic Blood Pressure NBP 120 mmHg mmHg Diastolic Blood Pressure NBP 94 mmHg mmHg 09/10/2022 8:15 EDT Heart Rate Monitored 76 bpm bpm Systolic Blood Pressure NBP 139 mmHg mmHg Diastolic Blood Pressure NBP 104 mmHg mmHg 09/10/2022 7:14 EDT Temperature Temporal Artery 36 DegC Apical Heart Rate 80 bpm Respiratory Rate 19 br/min Systolic Blood Pressure 124 mmHg Diastolic Blood Pressure 90 mmHg HI . Mental status: at preoperative baseline. Respiratory function: lungs are clear to auscultation, respirations are non-labored. Respiratory support: none. CV function: Normal rate, Regular rhythm. Cardiovascular support: none. Pain: Self-reports no pain, Post op control No intervention needed. Nausea status: denies nausea. Postoperative hydration status: within normal limits. Digitally Signed by KATLIN MITTAL on 09/10/2022 08:30 AM [facility]10-19-2022 Anesthesiology Consult note Patient: LIZZIE COLLINS Age: 66 years Sex: Female : 1955 Associated Diagnoses: None Author: KATLIN MITTAL Preoperative Information Anesthesia history Patient's history: negative. Family's history: negative. Health Status Allergies: Allergic Reactions (Selected) Severity Not Documented Penicillin- Hives. Sulfa drug- Unknown., Allergies (2) ActiveReaction penicillinHives sulfa drugUnknown Current medications: (Selected) Inpatient Medications Ordered Lactated Ringers Infusion 1,000 mL: 20 mL/hr, Intravenous Prescriptions Prescribed omeprazole 20 mg oral delayed release capsule: 20 mg, 1 cap(s), Oral, qDay, for 60 day(s), 60 cap(s), 0 Refill(s) Documented Medications Documented D3-50 (50,000 units) oral capsule: 1,250 mcg, 1 cap(s), Oral, qWeek, 100 cap(s), 0 Refill(s) Hormone replacements: 0 Refill(s) alendronate 70 mg oral tablet: 70 mg, 1 tab(s), Oral, qWeek, 12 tab(s), 0 Refill(s) levothyroxine 75 mcg (0.075 mg) oral tablet: 75 mcg, 1 tab(s), Oral, qDay, 30 tab(s), 0 Refill(s), Medications (1) Active Scheduled: (0) Continuous: (1) Lactated Ringers Infusion 1,000 mL 1,000 mL, Intravenous, 20 mL/hr PRN: (0) Problem list: Medical Chronic back pain greater than 3 months duration / SNOMED CT 6506384139 / Confirmed Leg cramping / SNOMED CT 2399835980 / Confirmed Fibromyalgia / SNOMED CT 105101326 / Confirmed Split S1 (first heart sound) / SNOMED CT 803213033 / Confirmed Gastroesophageal reflux / SNOMED CT 602089844 / Confirmed Hiatal hernia / SNOMED CT 087396619 / Confirmed Osteoporosis / SNOMED CT 921441709 / Confirmed Prediabetes / SNOMED CT 4023151650 / Confirmed, Active Problems (8) Chronic back pain greater than 3 months duration Fibromyalgia Gastroesophageal reflux Hiatal hernia Leg cramping Osteoporosis Prediabetes Split S1 (first heart sound) Histories Past Medical History: No active or resolved past medical history items have been selected or recorded. Family History: Osteoporosis Mother Sister Procedure history: Trigger finger (1044760741). Wrist (14938929). Social History Social & Psychosocial Habits Alcohol 12/27/2019 Use: Never Substance Abuse 12/27/2019 Use: Never Tobacco 12/27/2019 Tobacco Use: Never (less than 100 in l Exposure to Tobacco Smoke Lives in non-smoking home Home/Environment 12/27/2019 Primary Head Lineman: Self Nutrition/Health 06/24/2022 Caffeine intake amount: Coffee 1 cup . Physical Examination No qualifying data available General: Alert and oriented. Airway: Normal temporomandibular joint mobility. Mallampati classification: II (soft palate, fauces, uvula visible). Dentition Evaluation: Denies loose/chipped teeth. Respiratory: Lungs are clear to auscultation, Respirations are non-labored. Cardiovascular: Normal rate, Regular rhythm. Neurologic: Alert, Oriented. Review / Management Results review: No qualifying data available . Assessment and Plan [place] [employer] Society of Anesthesiologists (ASA) physical status classification: Class III. Anesthetic Preoperative Plan Anesthetic technique: MAC. Postoperative pain management: Per surgeon. Risks discussed: nausea, vomiting, hypotension, allergic reaction, serious complications. Informed consent: signed by patient. Digitally Signed by KATLIN MITTAL on 09/10/2022 07:20 AM [facility]10-17-2022 Note KEENE ADMISSION HISTORY AND PHYSICIAL CHIEF COMPLAINT: HISTORY OF PRESENT ILLNESS: screening colon REVIEW OF SYSTEMS: Constitutional: denies weight loss Cardiovascular:denies chest pain, palpitations Respiratory:denies shortness of breath Gastrointestinal:no abd pain Musculoskeletal: no arthralgias Skin: no rashes . ACTIVE PROBLEMS: (8) Chronic back pain greater than 3 months duration (3500839336) Fibromyalgia (589880762) Gastroesophageal reflux (179016917) Hiatal hernia (236373646) Leg cramping (9863073126) Osteoporosis (033541743) Prediabetes (4434135765) Split S1 (first heart sound) (867205924) MEDICATIONS: Active Inpt Meds: None Active PRN Meds: None One Time Meds: None Active IV Meds: None ALLERGIES: (2) penicillin sulfa drug FAMILY HISTORY: SOCIAL HISTORY: PHYSICAL EXAM: VITALS: No Data Available 24 Hr Tmax: No Data Available 36 Hr Tmax: No Data Available Vital Signs are the last 5 in the past 48 hours. Weights display the last 5 within 7 days. Initial Wt: No Data Available Current Wt: No Data Available physical exam alert and oriented cardio; regular without murmur pulm; clear abd; soft, nontender DIAGNOSTICS: IMPRESSION: screening colon PLAN: Digitally Signed by IMTIAZ TOLENTINO DO on 09/10/2022 07:08 AM [facility]10-17-2022 Evaluation + Plan noteExtracted from: Title:Clinical Document Author:IMTIAZ TOLENTINO ate:09/08/22 [facility] ADMISSION HISTORY AN D PHYSICIAL CHIEF COMPLAINT: HISTORY OF PRESENT ILLNESS: screening colon REVIEW OF SYSTEMS: Constitutional: denies weight loss Cardiovascular:denies chest pain, palpitations Respiratory:denies shortness of breath Gastrointestinal:no abd pain Musculoskeletal: no arthralgias Skin: no rashes . ACTIVE PROBLEMS: (8) Chronic back pain greater than 3 months duration (0782779681) Fibromyalgia (354433562) Gastroesophageal reflux (609271049) Hiatal hernia (383764767) Leg cramping (6901749005) Osteoporosis (912519361) Prediabetes (4275023324) Split S1 (first heart sound) (182933868) MEDICATIONS: Active Inpt Meds: None Active PRN Meds: None One Time Meds: None Active IV Meds: None ALLERGIES: (2) penicillin sulfa drug FAMILY HISTORY: SOCIAL HISTORY: PHYSICAL EXAM: VITALS: No Data Available 24 Hr Tmax: No Data Available 36 Hr Tmax: No Data Available Vital Signs are the last 5 in the past 48 hours. Weights display the last 5 within 7 days. Initial Wt: No Data Available Current Wt: No Data Available physical exam alert and oriented cardio; regular without murmur pulm; clear abd; soft, nontender DIAGNOSTICS: IMPRESSION: screening colon PLAN: Future Appointments Appointment Date:09/23/2022 10:00:00 AM Scheduled Provider:JOYCE LYNN DO Location:[facility] Appointment Type:PC OV [facility] Evaluation + Plan note No data available for this section [facility] Evaluation + Plan note Future Appointments Appointment Date:06/24/2022 10:00:00 AM Scheduled Provider:JOYCE LYNN DO Location:[facility] Appointment Type:PC OV Diagnostic Tests Pending * Estradiol Level 06/14/22 * Progesterone Level 06/14/22 * Testosterone Level Total 06/14/22 Future Scheduled Tests Laboratory* Glucose Level 04/23/22 * Lipid Profile 04/23/22 [facility] [employer] + Plan note Future Appointments Appointment Date:03/03/2023 09:00:00 AM Scheduled Provider:JOYCE LYNN DO [facility] Appointment Type: OV Follow Up [facility] [employer] + Plan note Future Appointments Appointment Date:06/24/2024 09:00:00 AM Scheduled Provider:JOYCE LYNN DO Location:[facility] Appointment Type:PC Wellness Medicare Future Scheduled Tests Laboratory* Lipase Level 06/23/23 * A1C Hemoglobin 06/23/23 * Complete Blood Count 06/23/23 * Lipid Profile 06/23/23 * Complete Metabolic Panel 06/23/23 [facility] [employer] + Plan note Future Appointments Appointment Date:06/24/2024 09:00:00 AM Scheduled Provider:JOYCE LYNN DO Location:[facility] Appointment Type:PC Wellness Medicare [facility] [place] [employer] + Plan note Future Appointments Appointment Date:06/24/2024 09:00:00 AM Scheduled Provider:JOYCE LYNN DO Location:[facility] Appointment Type:PC Wellness Medicare Diagnostic Tests Pending * Thyroid Stim Immunoglobulin 02/08/24 [facility] [employer] + Plan note Future Appointments Appointment Date:07/01/2024 09:30:00 AM Scheduled Provider:JOYCE LYNN DO Location:[facility] Appointment Type:PC Wellness Medicare [facility] [place] [employer] + Plan note Future Appointments Appointment Date:09/06/2024 09:30:00 AM Scheduled Provider:JOYCE LYNN DO Location:[facility] Appointment Type: Office Procedure OMT Appointment Date:01/03/2025 09:30:00 AM Scheduled Provider:JOYCE LYNN DO Location:[facility] Appointment Type: OV Future Scheduled Tests Radiology* MA Mammo Screening Bilateral w/ Roger 07/01/24 * BD Bone Density DEXA Axial Skeleton Adult (21 yrs or older) 07/01/24 [facility] Evaluation + Plan note Future Appointments Appointment Date:02/07/2025 08:00:00 AM Scheduled Provider:JOYCE LYNN DO Location:[facility] Appointment Type:PC Office Procedure OMT Future Scheduled Tests Laboratory* Lipase Level 01/03/25 * Complete Blood Count 01/03/25 * Complete Metabolic Panel 01/03/25 Radiology* CT Abd/Pelvis w/ IV Contrast Only 01/03/25 * US Transvaginal Non OB 01/03/25 [facility] Evaluation + Plan note Future Appointments Appointment Date:01/16/2025 09:30:00 AM Scheduled Provider: Location:[facility] Appointment Type:CT Abd/Pelvis w/ IV Contrast Only Appointment Date:01/16/2025 10:00:00 AM Scheduled Provider: Location:[facility] Appointment Type:US Transvaginal Non OB Appointment Date:02/07/2025 08:00:00 AM Scheduled Provider:JOYCE LYNN DO Location:[facility] Appointment Type:PC Office Procedure OMT Future Scheduled Tests Laboratory* Lipase Level 01/03/25 * Complete Blood Count 01/03/25 * Complete Metabolic Panel 01/03/25 Radiology* CT Abd/Pelvis w/ IV Contrast Only 01/16/25 * US Transvaginal Non OB 01/16/25 [facility] Evaluation + Plan note Future Appointments Appointment Date:02/07/2025 08:00:00 AM Scheduled Provider:JOYCE LYNN DO Location:[facility] Appointment Type:PC Office Procedure OMT Future Scheduled Tests Laboratory* Complete Metabolic Panel 02/27/25 [facility] Evaluation + Plan note Future Appointments Appointment Date:03/27/2025 08:30:00 AM Scheduled Provider:Haider Scanlon PT Location:[facility] Appointment Type:PT Outpatient Evaluation Appointment Date:04/27/2025 11:00:00 AM Scheduled Provider:JOYCE LYNN DO Location:[facility] Appointment Type:PC Office Procedure OMT [facility] evaluation + Plan note Future Appointments Appointment Date:05/10/2025 02:30:00 PM Scheduled Provider:JOYCE LYNN DO Location:[facility] Appointment Type:PC Office Procedure OMT Appointment Date:05/25/2025 08:30:00 AM Scheduled Provider:JOYCE LYNN DO Location:[facility] Appointment Type:PC OV Future Scheduled Tests Radiology* MRI Brain w/ + w/o Contrast 04/27/25 [facility] Evaluation + Plan note Future Appointments Appointment Date:05/25/2025 08:30:00 AM Scheduled Provider:JOYCE LYNN DO Location:[facility] Appointment Type:PC OV Appointment Date:06/12/2025 08:00:00 AM Scheduled Provider: Location:[facility] Appointment Type:Echo - Echocardiogram Adult [facility] evaluation + Plan note Future Appointments Appointment Date:06/12/2025 08:00:00 AM Scheduled Provider: Location:[facility] Appointment Type:Echo - Echocardiogram Adult Appointment Date:06/22/2025 08:30:00 AM Scheduled Provider:JOYCE LYNN DO Location:[facility] Appointment Type:PC OV [facility] Evaluation + Plan note Future Appointments Appointment Date:06/22/2025 08:30:00 AM Scheduled Provider:JOYCE LYNN DO Location:[facility] Appointment Type:PC OV [facility] Evaluation + Plan note Future Appointments Appointment Date:08/03/2025 11:30:00 AM Scheduled Provider:JOYCE LYNN DO Location:[facility] Appointment Type:PC Office Procedure OMT Diagnostic Tests Pending * Thyroid Stim Immunoglobulin 07/08/25 [facility] evaluation + Plan note Future Appointments Appointment Date:08/03/2025 11:30:00 AM Scheduled Provider:JOYCE LYNN DO Location:[facility] Appointment Type:PC Office Procedure OMT [facility] Evaluation + Plan note Future Appointments Appointment Date:09/14/2025 11:00:00 AM Scheduled Provider:JOYCE LYNN DO Location:[facility] Appointment Type:PC Office Procedure OMT Appointment Date:10/04/2025 08:30:00 AM Scheduled Provider:JOYCE LYNN DO Location:[facility] Appointment Type:PC Wellness Medicare Future Scheduled Tests Radiology* MA Mammo Screening Bilateral w/ Roger 08/23/25 [facility] Evaluation noteNo assessment information available [facility] Work Phone: Hospital Discharge instructions No data available for this section [facility] Progress note No data available for this section [facility] Chief Complaint and Reason for Visit Chief Complaint SCREENING Summary Purpose Family History No Family History Records Found Advance Directives No Advanced Directives Records FoundNo Advanced Directives Records FoundNo Advanced Directives Records Found Additional Source Comments Care Team (unrecognized sect ion and content) Team Status: Active Member Role Status Dates Dr. Benny Giles DO Family Provider Active Dr. Joyce Lynn DO Primary Care Provider Active Team Status: Inactive Member Role Status Dates Dr. Joyce Lynn DO Primary Care Provider Active TIFFANIE RIOS Attending Provider, Referring Provider Active Care Team (unrecognized sect ion and content) Care Team Personnel Name: JOYCE LYNN DO Position: P4 Physician - Primary Care Med Service: Active Provider Member Role: Primary Care Physician Address: Address: [address] [place] [id number]- Care Team Related Persons Name: CARLOS COLLINS Address: [address] [phone] [place] Care Team Personnel Name: JOYCE LYNN DO Position: P4 Physician - Primary Care Med Service: Active Provider Member Role: Primary Care Physician Address: Address: [address] [place] [id number]- Care Team Related Persons Name: CARLOS COLLINS Address: [address] [phone] [place] Care Team Personnel Name: MICHIJOYCE Position: P4 Physician - Primary Care Member Role: Primary Care Physician Address: Address: [address] [facility] [place] [address]- Care Team Related Persons Name: CARLOS COLLINS Address: [address] [phone] Goals (unrecognized section and content) Goals may be documented in a n alternate section INFORMATION SOURCE (unrecogn ized section and content) DATE CREATED AUTHOR 07/15/2024 [facility] DATE CREATED AUTHOR AUTHOR'S ORGANIZ ATION 08/28/2025 [facility] DATE CREATED AUTHOR AUTHOR'S ORGANIZ ATION 09/09/2025 [facility] FOR RECORDS PERTAINING TO PATIENTS WHO ARE OR HAVE BEEN ENROLLED IN A CHEMICAL DEPENDENCY/SUBSTANCEABUSE PROGRAM, SOME INFORMATION MAY BE OMITTED. This clinical summary was aggregated from multiple sources. Caution should be exercised in using it in the provision of clinical care. This summary normalizes information from multiple sources, and as a consequence, information in this document may materially change the coding, format and clinical context of patient data. In addition, data may be omitted in some cases. CLINICAL DECISIONS SHOULD BE BASED ON THE PRIMARY CLINICAL RECORDS. [employer] provides no warranty or guarantee of the accuracy or completeness of information in this document.
--- OUTSIDE RECORDS SUMMARY | 2025-09-11 15:14 | XMS RPT_ITS | CCD ---
Author Organization [facility] Team Providers Care Electron Microprobe Operator Name Role Phone VLADIMIR RUDOLPH APRN, CNP Primary Care Phys ician ROMAR DO, DR COOK Primary Care Physician [phone] JOSÉ MIGUEL PIPER-BYRON, JESSICA Hernandez Attending Unavailab le ROMAR DO, DR COOK Primary Care Unavailable ROMAR DO, DR COOK Attending Unavailable ROMAR DO, DR COOK Primary Care Unavailable JOSÉ MIGUEL PIPER-PACK PRESS OPERATOR, JESSICA Hernandez Attending Unavailab le ROMAR DO, DR COOK Primary Care Unavailable ROMAR DO, DR COOK Attending Unavailable ROMAR DO, DR COOK Primary Care Unavailable ROMAR DO, DR COOK Attending Unavailable ROMAR DO, DR COOK Primary Care Unavailable SHEROCK DO, HAIDRE Zhong Attending Unavailab le ROMAR DO, DR [...] DR COOK Primary Care Unavailable JOSÉ MIGUEL PUMPING SUPERVISOR-PACK PRESS OPERATOR, JESSICA Hernandez Attending Unavailab le ROMAR DO, [...] DO, DR COOK Primary Care Unavailable MARTIR PAINT SPECIALIST-C, STEVEN Lance Attending Unavailabl e ROMAR DO, [...] DO, DR COOK Primary Care Unavailable JOVAN PUMPING SUPERVISOR-PACK PRESS OPERATOR, PHILIP Attending Unavail able ROMAR DO, DR COOK Primary Care Unavailable VENICE APRN_CNP, ROSAURA Attending Unavailabl Joyce Pardo Referring Unavailable Joyce Lynn Attending Unavailable Joyce Lynn Primary Care Unavailable Allergies Allergy Classification Reported Allergen(s) Allergy Type Date of Onset Reaction(s) Facility (20 sources) Penicillin; Translations: [penicillin] Drug Allergy Weal (disorder) [facility] (20 sources) Sulfonamides (Antibiotic); Translations: [sulfa drugs] Drug allergy Unknown (qualifier value) [facility] (1 source) Penicillins Allergy to substance 4 Unknown [facility] (1 source) Sulfonamides (Antibiotic) Allergy to substance 4 Unknown [facility] (1 source) Penicillins Drug allergy (disorder) 4 [facility] (1 source) Sulfonamides (Antibiotic) Drug allergy (disorder) 4 [facility] Medications Current Medications Medication Drug Class(es) [...] BID, # 200 tab(s), 3 Refill(s), Pharmacy: [facility]/pharmacy #[id number], 171.1, cm, 09/06/24 9:28:00 EDT, Height, [...] 0 Refill(s), 06/03/25 2:14:00 PM EDT, Pharmacy: [facility]/pharmacy #4605, 166, cm, 05/29/25 13:51:00 EDT, Height, [...] med., # 40 tab(s), 0 Refill(s), [id number], 166.9, cm, 03/21/25 9:02:00 EDT, Height, kg, 03/21/25 9:02:00 EDT, Dosing Weight Start Date: 03/21/25 Stop Date: 03/26/25 Status: Ordered Quantity: 40.0 Unit: tab(s) Repeat number: 1 metoprolol tartrate 25 mg oral tablet (3 sources) beta-Adrenergic Jose Start: 06-30-2025 metoprolol tartrate 25 mg oral tablet Dose : 25 mg = 1 tab(s), Oral, BID, PRN Palpitation, # 60 tab(s), 6 Refill(s), [id number], 170, cm, 06/30/25 14:50:00 EDT, Height, [...] medication., # 21 tab(s), 1 Refill(s), [id number], 171.1, cm, 09/06/24 9:28:00 EDT, Height, [...] thanks, # 60 tab(s), 0 Refill(s), [facility], 166, cm, 06/22/25 8:36:00 EDT, Height, [...] using, # 1 EA, 5 Refill(s), Pharmacy: [facility]/pharmacy #4605, Rhinitis URI with cough and congestion, 166.9, cm, 02/07/25 8:11:00 EDT, Height, kg, 02/07/25 8:11:00 EDT, Dosing Weight Start Date: 02/07/25 Stop Date: 08/06/25 Status: Ordered Medication Dispense Status: Completed Quantity: 1.0 Unit: EA Total Allowed Fills: 6 Fills Dispensed: 0 Indications: Chronic rhinitis; Acute upper respiratory infection, unspecified; Start: 09-21-2023 take 1 dose nasal ro cherokee twice daily Flonase 50 mcg/inh nasal spray Dose = 2 spray(s), Nostril, each, BID, # 15.8 mL, 0 Refill(s), Pharmacy: [facility]/pharmacy #4605, Rhinitis URI with cough and congestion, 171.1, cm, 06/23/23 8:10:00 EDT, Height, kg, 09/21/23 15:29:00 EDT, Dosing Weight Start Date: 09/21/23 Status: Ordered omeprazole 20 mg delayed release oral capsule (1 source) Proton Pump Inhibitor Start: 06-24-2022 End: 08-23-2022 omeprazole 20 mg oral delayed release capsule Dose : 20 mg = 1 cap(s), Oral, qDay, # 60 cap(s), 0 Refill(s), Pharmacy: [facility] #[id number], 168.5, cm, 06/24/22 9:53:00 EDT, Height Start [...] Free T3 [Mass/Vol] 2.93 pg/mL Normal 2.30-4.00 [facility] Comment on above: Performed By: #### P NATALIE, E2, TESTO #### [place] [address] #### TSH, FT4, FT3 #### [address] [address] FT4on 08-24-2025 Free T4 [Mass/Vol] 0.91 ng/dL Normal 0.76-1.46 [facility] Comment on above: Performed By: #### P NATALIE, E2, TESTO #### [address] [address] #### TSH, FT4, FT3 #### [address] [address] LABORATORYOrdered By: SYSTEM SYSTEM on 08-24-2025 Free T3 [Mass/Vol] 2.93 pg/mL Normal 2.30 - 4. 00 pg/mL AO ADM SS Free T4 [Mass/Vol] 0.91 ng/dL Normal 0.76 - 1. 46 ng/dL AO ADM SS TSH Qn 0.10 m[IU]/L Low 0.36 - 3.74 mcIU/mL AO ADM SS TSHon 08-24-2025 TSH Qn 0.10 m[IU]/L Low 0.36-3.74 [facility] Comment on above: Performed By: #### P NATALIE, E2, TESTO #### [place] [address] #### TSH, FT4, FT3 #### [address] [address] Maxime 07-11-2025 TSI <0.10 Normal 0.00-0.55 [facility] Comment on above: Result Comment: Perf ormed At: [facility] [address] [id number] Da Mclaughlin MD Ph:[phone] Performed By: #### 0 61660, MCRSO #### [address] [address] #### [id number], 236049 #### [address] [address] DHEASon 07-08-2025 DHEA-SO4 214.58 mcg/dL Normal 25.90-460.20 [facility] Comment on above: Result Comment: No te - New Reference Range in effect 20 Performed By: #### 0 13879, MCRSO #### [place] [address] #### [id number], 122114 #### [address] [address] E2on 07-08-2025 Estradiol Level 87.55 pg/mL Normal [facility] Comment on above: Result Comment: Adult Female E2 Reference Ranges: Follicular phase 19.5 - 144.2 pg/mL Midcycle 63.9 - 356.7 pg/mL Luteal phase 55.8 - 214.2 pg/mL Post menopausal 0 - 33.2 pg/mL Performed By: #### 0 07516, MCRSO #### [place] [address] #### [id number], 816560 #### [address] [address] FT3on 07-08-2025 Free T3 [Mass/Vol] 2.99 pg/mL Normal 2.30-4.00 [facility] Comment on above: Performed By: #### 0 17828, [facility] #### [place] [address] #### [id number], 560523 #### [address] [address] FT4on 07-08-2025 Free T4 [Mass/Vol] 0.99 ng/dL Normal 0.76-1.46 [facility] Comment on above: Performed By: #### 0 22004, MCRSO #### [place] [address] #### [id number], [id number] #### [address] [address] LABORATORYOrdered By: SYSTEM SYSTEM on 07-08-2025 25-hydroxyvitamin D3 [Mass/Vol] 89.3 ng/mL Invalid Interpretation Code AO ADM SS Comment on above: Interpretive Data: I nterpretive Values Based on Total 25(OH) Vitamin D: Deficient <20 ng/mL Insufficient 20 - <30 ng/mL Sufficient 30-100 ng/mL DHEA-S [Mass/Vol] 214.58 ug/dL Normal 25.90 - 460.20 mcg/dL [facility] Comment on above: Interpretive Data: * *Note - New Reference Range in effect 20 E2 [Mass/Vol] 87.55 pg/mL Invalid Interpretation Code [facility] Comment on above: Interpretive Data: Adult Female E2 Reference Ranges: Follicular phase 19.5 - 144.2 pg/mL Midcycle 63.9 - 356.7 pg/mL Luteal phase 55.8 - 214.2 pg/mL Post menopausal 0 - 33.2 pg/mL Progesterone [Mass/Vol] 53.9 ng/mL Invalid Interpretation Code [facility] Comment on above: Interpretive Data: A dult Female Progesterone Reference Ranges: Follicular phase <0.21 - 1.40 ng/mL Luteal phase 3.34 - 25.56 ng/mL Mid-Luteal phase 4.44 - 28.03 ng/mL Postmenopausal <0.21 - 0.73 ng/ml Female: First trimester 11.22 - 90.00 ng/ml Second trimester 25.55 - 89.40 ng/ml Third trimester 48.40 - 422.50 ng/ml Testosterone [Mass/Vol] 39.76 ng/dL Invalid Interpretation Code [facility] Comment on above: Interpretive Data: N ormal Reference Ranges for Females: Female Premenopause Mtv58-326.01-47.94 ng/dL Female Postmenopause Kby63-07<7.00-45.62 ng/dL Free T3 [Mass/Vol] 2.99 pg/mL Normal 2.30 - 4. 00 pg/mL ADM SS Free T4 [Mass/Vol] 0.99 ng/dL Normal 0.76 - 1. 46 ng/dL AO ADM SS TSH Qn 0.03 m[IU]/L Low 0.36 - 3.74 mcIU/mL AO ADM SS PROGon 07-08-2025 Progesterone Level 53.9 ng/mL Normal [facility] Comment on above: Result Comment: Adul t Female Progesterone Reference Ranges: Follicular phase <0.21 - 1.40 ng/mL Luteal phase 3.34 - 25.56 ng/mL Mid-Luteal phase 4.44 - 28.03 ng/mL Postmenopausal <0.21 - 0.73 ng/ml Female: First trimester 11.22 - 90.00 ng/ml Second trimester 25.55 - 89.40 ng/ml Third trimester 48.40 - 422.50 ng/ml Performed By: #### 0 68030, MCRSO #### [place] [address] #### [id number], 286318 #### [address] [address] TESTOon 07-08-2025 Testosterone Lvl 39.76 ng/dL Normal [facility] Comment on above: Result Comment: Norm al Reference Ranges for Females: Female Premenopause Age 21-60 9.01-47.94 ng/dL Female Postmenopause Age 45-89 <7.00-45.62 ng/dL Performed By: #### 0 18303, [facility] #### [place] [address] #### [id number], 273964 #### [address] [address] TSHon 07-08-2025 TSH Qn 0.03 m[IU]/L Low 0.36-3.74 [facility] Comment on above: Performed By: #### 0 23463, MCRSO #### [place] [address] #### [id number], 840127 #### [address] [address] VIDHon 07-08-2025 Vit. D 25-Hydroxy 89.3 ng/mL Normal [facility] Comment on above: Result Comment: Inte rpretive Values Based on Total 25(OH) Vitamin D: Deficient <20 ng/mL Insufficient 20 - <30 ng/mL Sufficient 30-100 ng/mL Performed By: #### 0 90729, MCRSO #### [place] [address] #### 398576, 225679 #### [address] [address] No Panel Informationon 05-29 Culture Urine >100,000 cfu/ml Multiple bacterial morphotypes present. Probable Contamination. Suggest recollection if clinically indicated. [facility] MRI BRAIN W/ + W/O CONTRASTo n [...] 11:44:26 AM Ordering Provider: JOYCE LYNN Normal [facility] No Panel Informationon 03-21 Culture Throat Normal throat tad present Sensitivity Testing: Not Indicated [facility] ZAPB1et 03-13-2025 Reverse T3 19.5 ng/dL Normal 9.2-24.1 [facility] Comment on above: Result Comment: This test was developed and its performance characteristics determined by [email or web address]. It has not been cleared or approved by the Food and Drug Administration. Performed At: [address] [id number] Da Mclaughlin MD Ph:[phone] Performed By: #### 0 51387, [facility] #### [place] [address] #### 125144, 539520 #### [address] [address] .Thyroglobulin by TOY [id number] on 03-10-2025 Thyroglob TOY 2.8 ng/mL Normal 1.5-38.5 [facility] Comment on above: Result Comment: According [...] is 0.1 ng/mL Thyroglobulin measured by Ángel [place] Immunometric Assay Performed At: [facility] [id number] Nallely Dotson PhD Ph:[phone] Performed By: #### 0 12485, [facility] #### [place] [address] #### [id number], 069182 #### [address] [address] THYRORFon 03-10-2025 Thyroglob Ab <1.0 Normal 0.0-0.9 [facility] Comment on above: Result Comment: Thyr oglobulin Antibody measured by Ángel Aly Methodology It should be noted that the presence of thyroglobulin antibodies may not be pathogenic nor diagnostic, especially at very low levels. The assay laborer petroleum [employer] has found that four percent of individuals without evidence of thyroid disease or autoimmunity will have positive TgAb levels up to 4 IU/mL. Performed At: [facility] [address], [place] [id number] Nallely Dotson PhD Ph:[phone] Performed By: #### 0 49570, MCRSO #### [place] [address] #### 909499, 414231 #### [address] [address] .GFRon 03-08-2025 Estimated Glomerular Filtration Rate 84 ml/min/1.73sqm Normal [facility] Comment on above: Result Comment: Stages [...] the eGFR results. Performed By: #### 0 23759, [facility] #### [place] [address] #### 856024, 904676 #### [address] [address] CMPon 03-08-2025 Albumin Level 3.6 G/dL Normal 3.4-4.8 [facility] Comment on above: Performed By: #### 0 70529, MCRSO #### [place] [address] #### 384727, 999241 #### [address] [address] Albumin/Globulin [Mass ratio] 0.9 {ratio} Low 1.1-2.5 [facility] Comment on above: Performed By: #### 0 11484, MCRSO #### [place] [address] #### 605671, 647753 #### [address] [address] ALP [Catalytic activity/Vol] 105 U/L Normal 40-135 [facility] Comment on above: Performed By: #### 0 41868, MCRSO #### [place] [address] #### 650542, 474519 #### [place] [id number] ALT [Catalytic activity/Vol] 20 U/L Normal 14-59 [facility] Comment on above: Performed By: #### 0 08234, MCRSO #### [place] [address] #### 207443, 954983 #### [place] [id number] AST [Catalytic activity/Vol] 17 U/L Normal 10-40 [facility] Comment on above: Performed By: #### 0 64194, MCRSO #### [place] [address] #### 440445, 043842 #### [address] [address] Bili Total 0.4 mg/dL Normal 0.2-1.0 [facility] Comment on above: Result Comment: Use of this assay is not recommended for patients undergoing treatment with eltrombopag due to the potential for falsely elevated results. Performed By: #### 0 38789, MCRSO #### [place] [address] #### 193991, 246681 #### [address] [address] BUN/Creatinine Ratio 16 ratio Normal 7-27 [facility] Comment on above: Performed By: #### 0 34541, MCRSO #### [place] [address] #### 986201, 365704 #### [address] [address] Calcium [Mass/Vol] 8.6 mg/dL Normal 8.4-10.2 [facility] Comment on above: Performed By: #### 0 22956, MCRSO #### [place] [address] #### 407578, 271451 #### [address] [address] Chloride [Moles/Vol] 106 mmol/L Normal 98-107 [facility] Comment on above: Performed By: #### 0 75676, MCRSO #### [place] [address] #### 579789, 052048 #### [place] [address] CO2 [Moles/Vol] 28 mmol/L Normal 23-31 [facility] Comment on above: Performed By: #### 0 10662, MCRSO #### [place] [address] #### 692063, 263374 #### [place] [address] Creatinine [Mass/Vol] 0.77 mg/dL Normal 0.55-1.02 [facility] Comment on above: Result Comment: Test ing performed on Siemens Dimension EXL analyzer using a modified kinetic Linda technique. Performed By: #### 0 90318, MCRSO #### [place] [address] #### 394574, 180229 #### [place] [address] Electrolyte Balance 6.0 mEq/L Normal 4.0-15.0 [facility] Comment on above: Performed By: #### 0 25211, MCRSO #### [place] [address] #### 100380, 027949 #### [place] [address] Globulin 3.8 G/dL Normal 1.5-3.8 [facility] Comment on above: Performed By: #### 0 70865, MCRSO #### [place] [address] #### 820687, 108961 #### [address] [address] Glucose [Mass/Vol] 95 mg/dL Normal 80-115 [facility] Comment on above: Performed By: #### 0 15097, MCRSO #### [place] [address] #### 543879, 355496 #### [address] [address] Potassium [Moles/Vol] 3.9 mmol/L Normal 3.5-5.1 [facility] Comment on above: Performed By: #### 0 40225, MCRSO #### [place] [address] #### 246761, 996247 #### [address] [address] Sodium [Moles/Vol] 140 mmol/L Normal 136-145 [facility] Comment on above: Performed By: #### 0 41613, MCRSO #### [place] [address] #### 334810, 031854 #### [address] [address] Total Protein 7.4 G/dL Normal 6.4-8.2 [facility] Comment on above: Performed By: #### 0 78725, MCRSO #### [place] [address] #### 783080, 082143 #### [address] [address] Urea nitrogen [Mass/Vol] 12 mg/dL Normal 7-18 [facility] Comment on above: Performed By: #### 0 05001, MCRSO #### [place] [address] #### 873547, 830538 #### [address] [address] E2on 03-08-2025 Estradiol Level 48.28 pg/mL Normal [facility] Comment on above: Result Comment: No te - New Reference Range in effect 20 Adult Female E2 Reference Ranges: Follicular phase 19.5 - 144.2 pg/mL Midcycle 63.9 - 356.7 pg/mL Luteal phase 55.8 - 214.2 pg/mL Post menopausal 0 - 33.2 pg/mL Performed By: #### P NATALIE, E2, TESTO #### [place] [address] #### TSH, FT4, FT3 #### [place] [id number] FT3on 03-08-2025 Free T3 [Mass/Vol] 4.15 pg/mL High 2.30-4.00 [facility] Comment on above: Performed By: #### P NATALIE, E2, TESTO #### [place] [address] #### TSH, FT4, FT3 #### [place] [address] FT4on 03-08-2025 Free T4 [Mass/Vol] 0.95 ng/dL Normal 0.76-1.46 [facility] Comment on above: Performed By: #### P NATALIE, E2, TESTO #### [place] [address] #### TSH, FT4, FT3 #### [address] [address] PROGon 03-08-2025 Progesterone Level 20.1 ng/mL Normal [facility] Comment on above: Result Comment: Adul t Female Progesterone Reference Ranges: Follicular phase <0.21 - 1.40 ng/mL Luteal phase 3.34 - 25.56 ng/mL Mid-Luteal phase 4.44 - 28.03 ng/mL Postmenopausal <0.21 - 0.73 ng/ml Female: First trimester 11.22 - 90.00 ng/ml Second trimester 25.55 - 89.40 ng/ml Third trimester 48.40 - 422.50 ng/ml Performed By: #### P NATALIE, E2, TESTO #### [place] [address] #### TSH, FT4, FT3 #### [address] [address] TESTOon 03-08-2025 Testosterone Lvl 51.68 ng/dL Normal [facility] Comment on above: Result Comment: Norm al Reference Ranges for Females: Female Premenopause Age 21-60 9.01-47.94 ng/dL Female Postmenopause Age 45-89 <7.00-45.62 ng/dL Performed By: #### P NATALIE, E2, TESTO #### [place] [address] #### TSH, FT4, FT3 #### [place] [address] TSHon 03-08-2025 TSH Qn 0.08 m[IU]/L Low 0.36-3.74 [facility] Comment on above: Performed By: #### P NATALIE, E2, TESTO #### [place] [address] #### TSH, FT4, FT3 #### [place] [address] aTPOon 03-08-2025 anti-Thyroid Peroxidase <28 Normal 0-60 [facility] Comment on above: Result Comment: No te - New Reference Range in effect 20 Performed By: #### 0 04386, MCRSO #### [place] [address] #### 138838, 131092 #### [place] [address] CT ABD/PELVIS W/ IV CONTRAST ONLYon 01-17-2025 [...] 01/17/2025 11:27:13 AM Ordering Provider: JOYCE Meza [facility] .Auto Diffon 01-16-2025 Basophil, Absolute 0.0 10 3/mcL Normal 0.0-0.2 [facility] Comment on above: Performed By: #### 0 10811, [facility] #### [place] [address] #### 955818, 554599 #### [address] [address] Basophils/100 WBC (Bld) 0.6 % Normal 0.0-2.5 [facility] Comment on above: Performed By: #### 0 11500, MCRSO #### [place] [address] #### 956354, 406185 #### [address] [address] Eosinophil, Absolute 0.0 10 3/mcL Normal 0.0-0.7 [facility] Comment on above: Performed By: #### 0 31691, MCRSO #### [place] [address] #### 795904, 790868 #### [address] [address] Eosinophils/100 WBC (Bld) 0.9 % Normal 0.0-7.0 [facility] Comment on above: Performed By: #### 0 30134, MCRSO #### [place] [address] #### 497872, 794122 #### [address] [address] Lymphocyte, Absolute 1.4 10 3/mcL Normal 0.9-4.3 [facility] Comment on above: Performed By: #### 0 40523, MCRSO #### [place] [address] #### 231775, 154375 #### [address] [address] Lymphocytes/100 WBC (Bld) 28.4 % Normal 20.0-40.0 [facility] Comment on above: Performed By: #### 0 87067, MCRSO #### [place] [address] #### 599537, 362244 #### [address] [address] Monocyte, Absolute 0.6 10 3/mcL Normal 0.1-1.4 [facility] Comment on above: Performed By: #### 0 42377, MCRSO #### [place] [address] #### 431731, 562940 #### [address] [address] Monocytes/100 WBC (Bld) 12.7 % Normal 2.0-13.0 [facility] Comment on above: Performed By: #### 0 57071, MCRSO #### [place] [address] #### 383690, 660335 #### [address] [address] Neutrophils/100 WBC (Bld) 57.4 % Normal 50.0-75.0 [facility] Comment on above: Performed By: #### 0 02900, MCRSO #### [place] [address] #### 760505, 694130 #### [address] [address] .GFRon 01-16-2025 Estimated Glomerular Filtration Rate 86 ml/min/1.73sqm Normal [facility] Comment on above: Result Comment: Stages [...] the eGFR results. Performed By: #### 0 80088, MCRSO #### [place] [address] #### 621817, 324030 #### [place] [address] .NEUABSon 01-16-2025 Neutrophil, Absolute 2.8 10 3/mcL Normal 2.3-8.1 [facility] Comment on above: Performed By: #### 0 64037, MCRSO #### [place] [address] #### 885867, 942331 #### [place] [address] CBCon 01-16-2025 Erythrocyte distribution width (RBC) [Ratio] 13.3 % Normal 11.5-15.5 [facility] Comment on above: Performed By: #### 0 59187, MCRSO #### [place] [address] #### 968332, 273786 #### [place] [address] Hematocrit (Bld) [Volume fraction] 42.6 % Normal 34.0-46.0 [facility] Comment on above: Performed By: #### 0 84022, MCRSO #### [place] [address] #### 674073, 260692 #### [place] [address] Hgb 14.3 G/dL Normal 12.0-16.0 [facility] Comment on above: Performed By: #### 0 34478, MCRSO #### [place] [address] #### 032253, 771938 #### [place] [address]27 MCH (RBC) [Entitic mass] 30.8 pg Normal 27.0-33.0 [facility] Comment on above: Performed By: #### 0 13629, MCRSO #### [place] [address] #### 139148, 006158 #### [place] [address] MCHC 33.6 G/dL Normal 32.0-36.0 [facility] Comment on above: Performed By: #### 0 33622, MCRSO #### [place] [address] #### 941589, 523981 #### [address] [address] MCV (RBC) [Entitic vol] 91.6 fL Normal 80.0-99.0 [facility] Comment on above: Performed By: #### 0 95334, MCRSO #### [place] [address] #### 561271, 865566 #### [address] [address] Platelet 266 10 3/mcL Normal 150-450 [facility] Comment on above: Performed By: #### 0 50182, MCRSO #### [place] [address] #### 582044, 536453 #### [address] [address] Platelet mean volume (Bld) [Entitic vol] 7.5 fL Normal 6.6-10.5 [facility] Comment on above: Performed By: #### 0 80500, MCRSO #### [place] [address] #### 253807, 921002 #### [address] [address] RBC 4.65 10 6/mcL Normal 4.10-5.30 [facility] Comment on above: Performed By: #### 0 99437, MCRSO #### [place] [address] #### 896711, 602085 #### [address] [address] WBC 4.8 10 3/mcL Normal 4.5-10.8 [facility] Comment on above: Performed By: #### 0 07428, MCRSO #### [place] [address] #### 218573, 282294 #### [address] [address] CMPon 01-16-2025 Calcium [Mass/Vol] 9.0 mg/dL Normal 8.4-10.2 [facility] Comment on above: Performed By: #### 0 15936, MCRSO #### [place] [address] #### 349614, 288337 #### [address] [address] Albumin Level 3.7 G/dL Normal 3.4-4.8 [facility] Comment on above: Performed By: #### 0 86687, MCRSO #### [place] [address] #### [id number], [id number] #### [place] [id number] Albumin/Globulin [Mass ratio] 0.9 {ratio} Low 1.1-2.5 [facility] Comment on above: Performed By: #### 0 [id number], MCRSO #### [place] [address] #### [id number], [id number] #### [address] [address] ALP [Catalytic activity/Vol] 136 U/L High 40-135 [facility] Comment on above: Performed By: #### 0 [id number], MCRSO #### [place] [address] #### [id number], [id number] #### [address] [address] ALT [Catalytic activity/Vol] 25 U/L Normal 14-59 [facility] Comment on above: Performed By: #### 0 [id number], MCRSO #### [place] [address] #### [id number], [id number] #### [place] [address] [place], [place] [address] AST [Catalytic activity/Vol] 22 U/L Normal 10-40 [facility] Comment on above: Performed By: #### 0 96385, MCRSO #### [place] [address] #### [id number], [id number] #### [address] [address] Bili Total 0.4 mg/dL Normal 0.2-1.0 [facility] Comment on above: Result Comment: Use of this assay is not recommended for patients undergoing treatment with eltrombopag due to the potential for falsely elevated results. Performed By: #### 0 97824, MCRSO #### [place] [address] #### [id number], [id number] #### [address] [address] BUN/Creatinine Ratio 16 ratio Normal 7-27 [facility] Comment on above: Performed By: #### 0 02071, MCRSO #### [place] [address] #### [id number], [id number] #### [address] [address] Chloride [Moles/Vol] 100 mmol/L Normal 98-107 [facility] Comment on above: Performed By: #### 0 09896, MCRSO #### [place] [address] #### [id number], [id number] #### [address] [address] CO2 [Moles/Vol] 29 mmol/L Normal 23-31 [facility] Comment on above: Performed By: #### 0 82735, MCRSO #### [place] [address] #### [id number], [id number] #### [address] [address] Creatinine [Mass/Vol] 0.76 mg/dL Normal 0.55-1.02 [facility] Comment on above: Result Comment: Test ing performed on Siemens Dimension EXL analyzer using a modified kinetic Linda technique. Performed By: #### 0 44323, MCRSO #### [place] [address] #### [id number], 797472 #### [address] [address] Electrolyte Balance 7.0 mEq/L Normal 4.0-15.0 [facility] Comment on above: Performed By: #### 0 36358, MCRSO #### [place] [address] #### [id number], 540832 #### [address] [address] Globulin 4.2 G/dL High 1.5-3.8 [facility] Comment on above: Performed By: #### 0 21214, MCRSO #### [place] [address] #### [id number], 826600 #### [address] [address] Glucose [Mass/Vol] 112 mg/dL Normal 80-115 [facility] Comment on above: Performed By: #### 0 22020, MCRSO #### [place] [address] #### [id number], [id number] #### [address] [address] Potassium [Moles/Vol] 3.5 mmol/L Normal 3.5-5.1 [facility] Comment on above: Performed By: #### 0 97851, MCRSO #### [place] [address] #### [id number], 387457 #### [address] [address] Sodium [Moles/Vol] 136 mmol/L Normal 136-145 [facility] Comment on above: Performed By: #### 0 27370, MCRSO #### [place] [address] #### [id number], 063233 #### [address] [address] Total Protein 7.9 G/dL Normal 6.4-8.2 [facility] Comment on above: Performed By: #### 0 35584, MCRSO #### [place] [address] #### [id number], 372012 #### [place] [address] [place], [place] [address] Urea nitrogen [Mass/Vol] 12 mg/dL Normal 7-18 [facility] Comment on above: Performed By: #### 0 53307, MCRSO #### [place] [address] #### [id number], [id number] #### [place] [address] LABORATORYOrdered By: SYSTEM SYSTEM on 01-16-2025 Albumin [...] 01-16-2025 Lipase Level 38 U/L Normal 16-77 [facility] Comment on above: Performed By: #### 0 98251, MCRSO #### [address] [address] #### [id number], [id number] #### [place] [address] [place], [place] [address] US PELVIS NON-OB W/TRANSVAGI NALon 01-16-2025 US [...] 4:06:16 PM Ordering Provider: JOYCE LYNN Normal [facility] E2on 01-03-2025 Estradiol Level 53.75 pg/mL Normal [facility] Comment on above: Result Comment: No te - New Reference Range in effect 20 Adult Female E2 Reference Ranges: Follicular phase 19.5 - 144.2 pg/mL Midcycle 63.9 - 356.7 pg/mL Luteal phase 55.8 - 214.2 pg/mL Post menopausal 0 - 33.2 pg/mL Performed By: #### 0 19156, [facility] #### [place] [address] #### [id number], 886337 #### [address] [address] FT3on 01-03-2025 Free T3 [Mass/Vol] 4.40 pg/mL High 2.30-4.00 [facility] Comment on above: Performed By: #### 0 73120, MCRSO #### [place] [address] #### [id number], [id number] #### [address] [address] FT4on 01-03-2025 Free T4 [Mass/Vol] 0.88 ng/dL Normal 0.76-1.46 [facility] Comment on above: Performed By: #### 0 28200, [facility] #### [place] [address] #### [id number], [id number] #### [address] [address] LABORATORYOrdered By: SYSTEM SYSTEM on 01-03-2025 E2 [Mass/Vol] 53.75 pg/mL Invalid Interpretation Code [facility] Comment on above: Interpretive Data: * *Note [...] Progesterone [Mass/Vol] 9.6 ng/mL Invalid Interpretation Code [facility] Comment on above: Interpretive Data: A dult [...] ormal Reference Ranges for Females: Female Premenopause Lox63-303.01-47.94 ng/dL Female Postmenopause Xpn44-35<7.00-45.62 ng/dL TSH Qn 0.10 m[IU]/L Low 0.36 - 3.74 mcIU/mL AO ADM SS No Panel Informationon 01-03 Culture Urine 10,000 - 50,000 cfu/ml Mixed growth consistent with normal urogenital tad. [facility] PROGon 01-03-2025 Progesterone Level 9.6 ng/mL Normal [facility] Comment on above: Result Comment: Adul t Female Progesterone Reference Ranges: Follicular phase <0.21 - 1.40 ng/mL Luteal phase 3.34 - 25.56 ng/mL Mid-Luteal phase 4.44 - 28.03 ng/mL Postmenopausal <0.21 - 0.73 ng/ml Female: First trimester 11.22 - 90.00 ng/ml Second trimester 25.55 - 89.40 ng/ml Third trimester 48.40 - 422.50 ng/ml Performed By: #### 0 18113, [facility] #### [place] [address] #### [id number], 293538 #### [facility] [address] [place], [place] [address] TESTOon 01-03-2025 Testosterone Lvl 50.92 ng/dL Normal [facility] Comment on above: Result Comment: Norm al Reference Ranges for Females: Female Premenopause Age 21-60 9.01-47.94 ng/dL Female Postmenopause Age 45-89 <7.00-45.62 ng/dL Performed By: #### 0 32028, MCRSO #### [place] [address] #### [id number], [id number] #### [address] [address] TSHon 01-03-2025 TSH Qn 0.10 m[IU]/L Low 0.36-3.74 [facility] Comment on above: Performed By: #### 0 85499, MCRSO #### [place] [address] #### [id number], [id number] #### [address] [address] FT3on 09-06-2024 Free T3 [Mass/Vol] 2.88 pg/mL Normal 2.30-4.00 [facility] Comment on above: Performed By: #### 0 40480, MCRSO #### [place] [address] #### [id number], [id number] #### [place] [address] E2on 09-05-2024 Estradiol Level 19.81 pg/mL Normal [facility] Comment on above: Result Comment: No te - New Reference Range in effect 20 Adult Female E2 Reference Ranges: Follicular phase 19.5 - 144.2 pg/mL Midcycle 63.9 - 356.7 pg/mL Luteal phase 55.8 - 214.2 pg/mL Post menopausal 0 - 33.2 pg/mL Performed By: #### P NATALIE, E2, TESTO #### [place] [address] #### TSH, FT4, FT3 #### [address] [address] FT4on 09-05-2024 Free T4 [Mass/Vol] 0.97 ng/dL Normal 0.76-1.46 [facility] Comment on above: Performed By: #### P NATALIE, E2, TESTO #### [place] [address] #### TSH, FT4, FT3 #### [address] [address] LABORATORYOrdered By: SYSTEM SYSTEM on 09-05-2024 25-hydroxyvitamin D3 [Mass/Vol] 124.4 ng/mL Invalid Interpretation Code [facility] Comment on above: Interpretive Data: I nterpretive Values Based on Total 25(OH) Vitamin D: Deficient <20 ng/mL Insufficient 20 - <30 ng/mL Sufficient 30-100 ng/mL E2 [Mass/Vol] 19.81 pg/mL Invalid Interpretation Code [facility] Comment on above: Interpretive Data: * *Note - New Reference Range in effect 20 Adult Female E2 Reference Ranges: Follicular phase 19.5 - 144.2 pg/mL Midcycle 63.9 - 356.7 pg/mL Luteal phase 55.8 - 214.2 pg/mL Post menopausal 0 - 33.2 pg/mL Free T4 [Mass/Vol] 0.97 ng/dL Normal 0.76 - 1. 46 ng/dL AO [facility] Progesterone [Mass/Vol] 9.9 ng/mL Invalid Interpretation Code [facility] Comment on above: Interpretive Data: A dult Female Progesterone Reference Ranges: Follicular phase <0.21 - 1.40 ng/mL Luteal phase 3.34 - 25.56 ng/mL Mid-Luteal phase 4.44 - 28.03 ng/mL Postmenopausal <0.21 - 0.73 ng/ml Female: First trimester 11.22 - 90.00 ng/ml Second trimester 25.55 - 89.40 ng/ml Third trimester 48.40 - 422.50 ng/ml Testosterone [Mass/Vol] 232.47 ng/dL Invalid Interpretation Code [facility] Comment on above: Interpretive Data: N ormal Reference Ranges for Females: Female Premenopause Bqd14-303.01-47.94 ng/dL Female Postmenopause Uaa43-67<7.00-45.62 ng/dL TSH Qn 0.07 m[IU]/L Low 0.36 - 3.74 mcIU/mL [facility] SS PROGon 09-05-2024 Progesterone Level 9.9 ng/mL Normal [facility] Comment on above: Result Comment: Adul t Female Progesterone Reference Ranges: Follicular phase <0.21 - 1.40 ng/mL Luteal phase 3.34 - 25.56 ng/mL Mid-Luteal phase 4.44 - 28.03 ng/mL Postmenopausal <0.21 - 0.73 ng/ml Female: First trimester 11.22 - 90.00 ng/ml Second trimester 25.55 - 89.40 ng/ml Third trimester 48.40 - 422.50 ng/ml Performed By: #### P NATALIE, E2, TESTO #### [place] [address] #### TSH, FT4, FT3 #### [place] [address] TESTOon 09-05-2024 Testosterone Lvl 232.47 ng/dL Normal [facility] Comment on above: Result Comment: Norm al Reference Ranges for Females: Female Premenopause Age 21-60 9.01-47.94 ng/dL Female Postmenopause Age 45-89 <7.00-45.62 ng/dL Performed By: #### P NATALIE, E2, TESTO #### [place] [address] #### TSH, FT4, FT3 #### [address] 09-05-2024 TSH Qn 0.07 m[IU]/L Low 0.36-3.74 [facility] Comment on above: Performed By: #### P NATALIE, E2, TESTO #### [place] [address] #### TSH, FT4, FT3 #### [place] [address] VIDHon 09-05-2024 Vit. D 25-Hydroxy 124.4 ng/mL Normal [facility] Comment on above: Result Comment: Inte rpretive Values Based on Total 25(OH) Vitamin D: Deficient <20 ng/mL Insufficient 20 - <30 ng/mL Sufficient 30-100 ng/mL Performed By: #### P NATALIE, E2, TESTO #### [place] [address] #### TSH, FT4, FT3 #### [place] [address] LIPIDon 07-07-2024 Cholesterol [Mass/Vol] 147 mg/dL Normal 0-200 [facility] ([place]) Comment on above: Result Comment: Chol esterol Reference Interval: Less than 200 Desirable 200-239 Borderline high risk 240 and above High risk Performed By: #### T ESTO, DHEAS, E2, PROG #### [place] [address] #### FT4, FT3, TSH #### [address] [address] Cholesterol in HDL [Mass/Vol] 48 mg/dL Normal 40-60 [facility] ([place]) Comment on above: Performed By: #### T ESTO, DHEAS, E2, PROG #### [place] [address] #### FT4, FT3, TSH #### [address] [address] Cholesterol in LDL [Mass/Vol] 86 mg/dL Normal 0-130 [facility] ([place]) Comment on above: Performed By: #### T ESTO, DHEAS, E2, PROG #### [place] [address] #### FT4, FT3, TSH #### [address] [address] Triglyceride [Mass/Vol] 65 mg/dL Normal 0-150 [facility] ([place]) Comment on above: Result Comment: Trig lyceride Reference Interval: Less than 150 Normal 150-199 Borderline high risk 200-499 High risk 500 or higher Very high risk Performed By: #### T ESTO, DHEAS, E2, PROG #### [place] [address] #### FT4, FT3, TSH #### [address] [address] .GFRon 06-09-2024 GFR 87 ml/min/1.73sqm Normal [facility] ([place]) Comment on above: Result Comment: GFR Population [...] #### T ESTO, DHEAS, E2, PROG #### [address] [address] #### FT4, FT3, TSH #### [address] [address] GFR Non- 72 ml/min/1.73sqm Normal [facility] ([place]) Comment on above: Result Comment: GFR Population [...] #### T ESTO, DHEAS, E2, PROG #### [address] [address] #### FT4, FT3, TSH #### [address] [address] A1Con 06-09-2024 HbA1c (Bld) [Mass fraction] 5.8 % Normal 4.3-6.4 [facility] ([place]) Comment on above: Performed By: #### T ESTO, DHEAS, E2, PROG #### [place] [address] #### FT4, FT3, TSH #### [address] [address] [facility] 06-09-2024 Albumin Level 3.8 G/dL Normal 3.4-4.8 [facility] ([place]) Comment on above: Performed By: #### T ESTO, DHEAS, E2, PROG #### [place] [address] #### FT4, FT3, TSH #### [address] [address] Albumin/Globulin [Mass ratio] 1.0 {ratio} Low 1.1-2.5 [facility] ([place]) Comment on above: Performed By: #### T ESTO, DHEAS, E2, PROG #### [place] [address] #### FT4, FT3, TSH #### [address] [address] ALP [Catalytic activity/Vol] 110 U/L Normal 40-135 [facility] ([place] Comment on above: Performed By: #### T ESTO, DHEAS, E2, PROG #### [place] [address] #### FT4, FT3, TSH #### [address] [address] ALT [Catalytic activity/Vol] 25 U/L Normal 14-59 [facility] ([place]) Comment on above: Performed By: #### T ESTO, DHEAS, E2, PROG #### [place] [address] #### FT4, FT3, TSH #### [address] [address] AST [Catalytic activity/Vol] 14 U/L Normal 10-40 [facility] ([place] Comment on above: Performed By: #### T ESTO, DHEAS, E2, PROG #### [place] [address] #### FT4, FT3, TSH #### [address] [address] Bili Total 0.4 mg/dL Normal 0.2-1.0 [facility] ([place] Comment on above: Result Comment: Use of this assay is not recommended for patients undergoing treatment with eltrombopag due to the potential for falsely elevated results. Performed By: #### T ESTO, DHEAS, E2, PROG #### [place] [address] #### FT4, FT3, TSH #### [address] [address] BUN/Creatinine Ratio 15 ratio Normal 7-27 [facility] ([place]) Comment on above: Performed By: #### T ESTO, DHEAS, E2, PROG #### [place] [address] #### FT4, FT3, TSH #### [address] [address] Calcium [Mass/Vol] 9.5 mg/dL Normal 8.4-10.2 [facility] ([place]) Comment on above: Performed By: #### T ESTO, DHEAS, E2, PROG #### [place] [address] #### FT4, FT3, TSH #### [address] [address] Chloride [Moles/Vol] 103 mmol/L Normal 98-107 [facility] ([place] Comment on above: Performed By: #### T ESTO, DHEAS, E2, PROG #### [place] [address] #### FT4, FT3, TSH #### [address] [address] CO2 [Moles/Vol] 31 mmol/L Normal 23-31 [facility] ([place] Comment on above: Performed By: #### T ESTO, DHEAS, E2, PROG #### [place] [address] #### FT4, FT3, TSH #### [address] [address] Creatinine [Mass/Vol] 0.80 mg/dL Normal 0.55-1.02 [facility] ([place]) Comment on above: Performed By: #### T ESTO, DHEAS, E2, PROG #### [place] [address] #### FT4, FT3, TSH #### [address] [address] Electrolyte Balance 4.0 mEq/L Normal 4.0-15.0 Counts include 234 beds at the [facility] ([place]) Comment on above: Performed By: #### T ESTO, DHEAS, E2, PROG #### [place] [address] #### FT4, FT3, TSH #### [address] [address] Globulin 3.9 G/dL Normal [facility] ([place]) Comment on above: Performed By: #### T ESTO, DHEAS, E2, PROG #### [place] [address] #### FT4, FT3, TSH #### [address] [address] Glucose [Mass/Vol] 107 mg/dL Normal 80-115 [facility] ([place]) Comment on above: Performed By: #### T ESTO, DHEAS, E2, PROG #### [place] [address] #### FT4, FT3, TSH #### [address] [address] Potassium [Moles/Vol] 4.6 mmol/L Normal 3.5-5.1 [facility] ([place]) Comment on above: Performed By: #### T ESTO, DHEAS, E2, PROG #### [place] [address] #### FT4, FT3, TSH #### [address] [address] Sodium [Moles/Vol] 138 mmol/L Normal 136-145 [facility] ([place]) Comment on above: Performed By: #### T ESTO, DHEAS, E2, PROG #### [place] [address] #### FT4, FT3, TSH #### [address] [address] Total Protein 7.7 G/dL Normal 6.4-8.2 [facility] ([place] Comment on above: Performed By: #### T ESTO, DHEAS, E2, PROG #### [place] [address] #### FT4, FT3, TSH #### [address] [address] Urea nitrogen [Mass/Vol] 12 mg/dL Normal - [facility] ([place]) Comment on above: Performed By: #### T ESTO, DHEAS, E2, PROG #### [place] [address] #### FT4, FT3, TSH #### [address] [address] DHEASon 06-09-2024 DHEA-SO4 321.59 mcg/dL Normal 25.90-460.20 [facility] ([place]) Comment on above: Result Comment: No te - New Reference Range in effect 20 Performed By: #### T ESTO, DHEAS, E2, PROG #### [place] [address] #### FT4, FT3, TSH #### [address] [address] E2on 06-09-2024 Estradiol Level 63.35 pg/mL Normal [facility] ([place]) Comment on above: Result Comment: No te - New Reference Range in effect 20 Adult Female E2 Reference Ranges: Follicular phase 19.5 - 144.2 pg/mL Midcycle 63.9 - 356.7 pg/mL Luteal phase 55.8 - 214.2 pg/mL Post menopausal 0 - 33.2 pg/mL Performed By: #### T ESTO, DHEAS, E2, PROG #### [place] [address] #### FT4, FT3, TSH #### [address] [address] FT3on 06-09-2024 Free T3 [Mass/Vol] 3.52 pg/mL Normal 2.30-4.00 [facility] ([place]) Comment on above: Performed By: #### T ESTO, DHEAS, E2, PROG #### [place] [address] #### FT4, FT3, TSH #### [place] [address] [place], [place] [address] LABORATORYOrdered By: SYSTEM SYSTEM on 06-09-2024 Albumin [...] ormal Reference Ranges for Females: Female Premenopause Xya55-943.01-47.94 ng/dL Female Postmenopause Kzp94-66<7.00-45.62 ng/dL TSH Qn 0.09 m[IU]/L Low 0.36 - 3.74 mcIU/mL AO ADM SS Urea nitrogen [Mass/Vol] 12 mg/dL Normal 7 - 18 mg/dL AO ADM SS Urea nitrogen/Creatinine [Mass ratio] 15 ratio Normal 7 - 27 ratio AO ADM SS PROGon 06-09-2024 Progesterone Level 37.6 ng/mL Normal [facility] ([place]) Comment on above: Result Comment: Adul t Female Progesterone Reference Ranges: Follicular phase <0.21 - 1.40 ng/mL Luteal phase 3.34 - 25.56 ng/mL Mid-Luteal phase 4.44 - 28.03 ng/mL Postmenopausal <0.21 - 0.73 ng/ml Female: First trimester 11.22 - 90.00 ng/ml Second trimester 25.55 - 89.40 ng/ml Third trimester 48.40 - 422.50 ng/ml Performed By: #### T ESTO, DHEAS, E2, PROG #### [place] [address] #### FT4, FT3, TSH #### [place] [address] TESTOon 06-09-2024 Testosterone Lvl 203.75 ng/dL Normal [facility] ([place]) Comment on above: Result Comment: Norm al Reference Ranges for Females: Female Premenopause Age 21-60 9.01-47.94 ng/dL Female Postmenopause Age 45-89 <7.00-45.62 ng/dL Performed By: #### T ESTO, DHEAS, E2, PROG #### [place] [address] #### FT4, FT3, TSH #### [address] [address] TSHon 06-09-2024 TSH Qn 0.09 m[IU]/L Low 0.36-3.74 [facility] ([place]) Comment on above: Performed By: #### F T3, CMP, A1C, TSH, GFR #### [address] [address] #### TESTO, PROG, E2, DHEAS #### [place] [id number] Maxime 02-10-2024 TSI <0.10 Normal 0.00-0.55 [facility] ([place]) Comment on above: Result Comment: Perf ormed At: [facility] [address] [id number] Da Mclaughlin MD Ph:[phone] Performed By: #### T ESTO, DHEAS, E2, PROG #### [place] [address] #### FT4, FT3, TSH #### [address] [address] .Auto Diffon 02-08-2024 Basophil, Absolute 0.0 10 3/mcL Normal 0.0-0.2 [facility] ([place]) Comment on above: Performed By: #### T ESTO, DHEAS, E2, PROG #### [place] [address] #### FT4, FT3, TSH #### [address] [address] Basophils/100 WBC (Bld) 0.3 % Normal 0.0-2.5 [facility] ([place]) Comment on above: Performed By: #### T ESTO, DHEAS, E2, PROG #### [place] [address] #### FT4, FT3, TSH #### [address] [address] Eosinophil, Absolute 0.0 10 3/mcL Normal 0.0-0.4 [facility] ([place]) Comment on above: Performed By: #### T ESTO, DHEAS, E2, PROG #### [place] [address] #### FT4, FT3, TSH #### [address] [address] Eosinophils/100 WBC (Bld) 0.9 % Normal 0.0-7.0 [facility] ([place]) Comment on above: Performed By: #### T ESTO, DHEAS, E2, PROG #### [place] [address] #### FT4, FT3, TSH #### [address] [address] Lymphocyte, Absolute 1.3 10 3/mcL Normal 0.8-3.9 [facility] ([place]) Comment on above: Performed By: #### T ESTO, DHEAS, E2, PROG #### [place] [address] #### FT4, FT3, TSH #### [address] [address] Lymphocytes/100 WBC (Bld) 24.3 % Normal 10.0-50.0 [facility] ([place]) Comment on above: Performed By: #### T ESTO, DHEAS, E2, PROG #### [place] [address] #### FT4, FT3, TSH #### [address] [address] Monocyte, Absolute 0.3 10 3/mcL Normal 0.2-1.0 [facility] ([place]) Comment on above: Performed By: #### T ESTO, DHEAS, E2, PROG #### [place] [address] #### FT4, FT3, TSH #### [address] [address] Monocytes/100 WBC (Bld) 5.6 % Normal 1.7-13.0 [facility] ([place]) Comment on above: Performed By: #### T ESTO, DHEAS, E2, PROG #### [place] [address] #### FT4, FT3, TSH #### [address] [address] Neutrophils/100 WBC (Bld) 68.9 % Normal 37.0-80.0 [facility] ([place]) Comment on above: Performed By: #### T ESTO, DHEAS, E2, PROG #### [place] [address] #### FT4, FT3, TSH #### [address] [address] .NEUABSon 02-08-2024 Neutrophil, Absolute 3.7 10 3/mcL Normal 2.9-6.2 [facility] ([place]) Comment on above: Performed By: #### T ESTO, DHEAS, E2, PROG #### [place] [address] #### FT4, FT3, TSH #### [address] [address] CBCon 02-08-2024 Erythrocyte distribution width (RBC) [Ratio] 13.6 % Normal 11.5-14.5 [facility] ([place]) Comment on above: Performed By: #### T ESTO, DHEAS, E2, PROG #### [place] [address] #### FT4, FT3, TSH #### [place] [id number] Hematocrit (Bld) [Volume fraction] 38.2 % Normal 37.0-47.0 [facility] ([place] Comment on above: Performed By: #### T ESTO, DHEAS, E2, PROG #### [place] [address] #### FT4, FT3, TSH #### [place] 2[address]27 Hgb 13.2 G/dL Normal 12.0-16.0 [facility] ([place] Comment on above: Performed By: #### T ESTO, DHEAS, E2, PROG #### [place] [address] #### FT4, FT3, TSH #### [address] [address] MCH (RBC) [Entitic mass] 31.7 pg High 27.0-31.2 [facility] ([place] Comment on above: Performed By: #### T ESTO, DHEAS, E2, PROG #### [place] [address] #### FT4, FT3, TSH #### [address] [address] MCHC 34.6 G/dL Normal 33.0-37.0 [facility] ([place] Comment on above: Performed By: #### T ESTO, DHEAS, E2, PROG #### [place] [address] #### FT4, FT3, TSH #### [address] [address] MCV (RBC) [Entitic vol] 91.7 fL Normal 80.0-94.0 [facility] ([place] Comment on above: Performed By: #### T ESTO, DHEAS, E2, PROG #### [place] [address] #### FT4, FT3, TSH #### [address] [address] Platelet 321 10 3/mcL Normal 130-400 [facility] ([place]) Comment on above: Performed By: #### T ESTO, DHEAS, E2, PROG #### [place] [address] #### FT4, FT3, TSH #### [address] [address] Platelet mean volume (Bld) [Entitic vol] 7.6 fL Normal 7.4-10.4 [facility] ([place] Comment on above: Performed By: #### T ESTO, DHEAS, E2, PROG #### [place] [address] #### FT4, FT3, TSH #### [address] [address] RBC 4.17 10 6/mcL Low 4.20-5.40 [facility] ([place] Comment on above: Performed By: #### T ESTO, DHEAS, E2, PROG #### [place] [address] #### FT4, FT3, TSH #### [address] [address] WBC 5.4 10 3/mcL Normal 4.6-10.8 [facility] ([place] Comment on above: Performed By: #### T ESTO, DHEAS, E2, PROG #### [place] [address] #### FT4, FT3, TSH #### [place] [address] E2on 02-08-2024 Estradiol Level 40.36 pg/mL Normal [facility] ([place] Comment on above: Result Comment: No te - New Reference Range in effect 20 Adult Female E2 Reference Ranges: Follicular phase 19.5 - 144.2 pg/mL Midcycle 63.9 - 356.7 pg/mL Luteal phase 55.8 - 214.2 pg/mL Post menopausal 0 - 33.2 pg/mL Performed By: #### T ESTO, DHEAS, E2, PROG #### [place] [address] #### FT4, FT3, TSH #### [address] [address] FT3on 02-08-2024 Free T3 [Mass/Vol] 3.16 pg/mL Normal 2.30-4.00 [facility] ([place]) Comment on above: Performed By: #### T ESTO, DHEAS, E2, PROG #### [place] [address] #### FT4, FT3, TSH #### [address] [address] FT4on 02-08-2024 Free T4 [Mass/Vol] 1.05 ng/dL Normal 0.76-1.46 [facility] ([place]) Comment on above: Performed By: #### T ESTO, DHEAS, E2, PROG #### [address] [address] #### FT4, FT3, TSH #### [address] [address] LABORATORYOrdered By: SYSTEM SYSTEM on 02-08-2024 Basophil, [...] E2 [Mass/Vol] 40.36 pg/mL Invalid Interpretation Code [facility] [facility] Comment on above: Interpretive Data: * *Note [...] Progesterone [Mass/Vol] 19.9 ng/mL Invalid Interpretation Code [facility] Comment on above: Interpretive Data: A dult Female Progesterone Reference Ranges: Follicular phase <0.21 - 1.40 ng/mL Luteal phase 3.34 - 25.56 ng/mL Mid-Luteal phase 4.44 - 28.03 ng/mL Postmenopausal <0.21 - 0.73 ng/ml Female: First trimester 11.22 - 90.00 ng/ml Second trimester 25.55 - 89.40 ng/ml Third trimester 48.40 - 422.50 ng/ml Testosterone [Mass/Vol] 24.87 ng/dL Invalid Interpretation Code [facility] Comment on above: Interpretive Data: N ormal Reference Ranges for Females: Female Premenopause Hnb47-681.01-47.94 ng/dL Female Postmenopause Hcd49-87<7.00-45.62 ng/dL TPO Ab IA Qn 53 unit/mL Normal 0 - 60 unit/mL [facility] Comment on above: Interpretive Data: * *Note - New Reference Range in effect 20 TSH Qn 0.03 m[IU]/L Low 0.36 - 3.74 mcIU/mL AO ADM SS PROGon 02-08-2024 Progesterone Level 19.9 ng/mL Normal [facility] ([place]) Comment on above: Result Comment: Adul t Female Progesterone Reference Ranges: Follicular phase <0.21 - 1.40 ng/mL Luteal phase 3.34 - 25.56 ng/mL Mid-Luteal phase 4.44 - 28.03 ng/mL Postmenopausal <0.21 - 0.73 ng/ml Female: First trimester 11.22 - 90.00 ng/ml Second trimester 25.55 - 89.40 ng/ml Third trimester 48.40 - 422.50 ng/ml Performed By: #### T ESTO, DHEAS, E2, PROG #### [place] [address] #### FT4, FT3, TSH #### [place] [id number] TESTOon 02-08-2024 Testosterone Lvl 24.87 ng/dL Normal [facility] ([place]) Comment on above: Result Comment: Norm al Reference Ranges for Females: Female Premenopause Age 21-60 9.01-47.94 ng/dL Female Postmenopause Age 45-89 <7.00-45.62 ng/dL Performed By: #### T ESTO, DHEAS, E2, PROG #### [place] [address] #### FT4, FT3, TSH #### [place] [address] TSHon 02-08-2024 TSH Qn 0.03 m[IU]/L Low 0.36-3.74 [facility] ([place]) Comment on above: Performed By: #### T ESTO, DHEAS, E2, PROG #### [place] [address] #### FT4, FT3, TSH #### [address] [address] aTPOon 02-08-2024 anti-Thyroid Peroxidase 53 units/ml Normal 0-60 [facility] ([place]) Comment on above: Result Comment: No te - New Reference Range in effect 20 Performed By: #### T ESTO, DHEAS, E2, PROG #### [address] [address] #### FT4, FT3, TSH #### [address] [address] .GFRon 01-18-2024 GFR 80 ml/min/1.73sqm Normal [facility] ([place]) Comment on above: Result Comment: GFR Population [...] Performed By: #### G FR, BMP #### [address] [address] GFR Non- 66 ml/min/1.73sqm Normal [facility] ([place]) Comment on above: Result Comment: GFR Population [...] Performed By: #### G FR, BMP #### [address] [address] BMPon 01-18-2024 BUN/Creatinine Ratio 17 ratio Normal 7-27 [facility] ([place]) Comment on above: Performed By: #### Oseas SCHERER, BMP #### [address] [address] Calcium [Mass/Vol] 9.4 mg/dL Normal 8.4-10.2 [facility] ([place]) Comment on above: Performed By: #### Oseas SCHERER, BMP #### [address] [address] Chloride [Moles/Vol] 103 mmol/L Normal 98-107 [facility] ([place]) Comment on above: Performed By: #### Oseas SCHERER, BMP #### [address] [address] CO2 [Moles/Vol] 30 mmol/L Normal 23-31 [facility] ([place]) Comment on above: Performed By: #### Oseas SCHERER, BMP #### [address] [address] Creatinine [Mass/Vol] 0.86 mg/dL Normal 0.55-1.02 [facility] ([place]) Comment on above: Performed By: #### Oseas SCHERER, BMP #### [address] [address] Electrolyte Balance 8.0 mEq/L Normal 4.0-15.0 Counts include 234 beds at the [facility] ([place]) Comment on above: Performed By: #### Oseas SCHERER, BMP #### [address] [address] Glucose [Mass/Vol] 154 mg/dL High 80-115 [facility] ([place]) Comment on above: Performed By: #### Oseas SCHERER, BMP #### [address] [address] Potassium [Moles/Vol] 4.7 mmol/L Normal 3.5-5.1 [facility] ([place]) Comment on above: Performed By: #### Oseas SCHERER, BMP #### [address] [address] Sodium [Moles/Vol] 141 mmol/L Normal 136-145 [facility] ([place]) Comment on above: Performed By: #### G , BMP #### [address] [address] Urea nitrogen [Mass/Vol] 15 mg/dL Normal 7-18 [facility] ([place] Comment on above: Performed By: #### G , BMP #### [address] [address] .Auto Diffon 08-08-2023 Basophil, Absolute 0.0 10 3/mcL Normal 0.0-0.2 [facility] ([place] Comment on above: Performed By: #### T ESTO, DHEAS, E2, PROG #### [place] [address] #### FT4, FT3, TSH #### [address] [address] Basophils/100 WBC (Bld) 0.9 % Normal 0.0-2.5 [facility] ([place] Comment on above: Performed By: #### T ESTO, DHEAS, E2, PROG #### [place] [address] #### FT4, FT3, TSH #### [address] [address] Eosinophil, Absolute 0.0 10 3/mcL Normal 0.0-0.4 [facility] ([place]) Comment on above: Performed By: #### T ESTO, DHEAS, E2, PROG #### [place] [address] #### FT4, FT3, TSH #### [address] [address] Eosinophils/100 WBC (Bld) 0.9 % Normal 0.0-7.0 [facility] ([place] Comment on above: Performed By: #### T ESTO, DHEAS, E2, PROG #### [place] [address] #### FT4, FT3, TSH #### [address] [address] Lymphocyte, Absolute 1.1 10 3/mcL Normal 0.8-3.9 [facility] ([place]) Comment on above: Performed By: #### T ESTO, DHEAS, E2, PROG #### [place] [address] #### FT4, FT3, TSH #### [address] [address] Lymphocytes/100 WBC (Bld) 27.2 % Normal 10.0-50.0 [facility] ([place]) Comment on above: Performed By: #### T ESTO, DHEAS, E2, PROG #### [place] [address] #### FT4, FT3, TSH #### [address] [address] Monocyte, Absolute 0.4 10 3/mcL Normal 0.2-1.0 [facility] ([place]) Comment on above: Performed By: #### T ESTO, DHEAS, E2, PROG #### [place] [address] #### FT4, FT3, TSH #### [address] [address] Monocytes/100 WBC (Bld) 8.4 % Normal 1.7-13.0 [facility] ([place]) Comment on above: Performed By: #### T ESTO, DHEAS, E2, PROG #### [place] [address] #### FT4, FT3, TSH #### [address] [address] Neutrophils/100 WBC (Bld) 62.6 % Normal 37.0-80.0 [facility] ([place]) Comment on above: Performed By: #### T ESTO, DHEAS, E2, PROG #### [place] [id number] #### FT4, FT3, TSH #### [place] [address] [place], [place] [address] .GFRon 08-08-2023 GFR 95 ml/min/1.73sqm Normal [facility] ([place] Comment on above: Result Comment: GFR Population [...] #### T ESTO, DHEAS, E2, PROG #### [place] [address] #### FT4, FT3, TSH #### [address] [address] GFR Non- 79 ml/min/1.73sqm Normal [facility] ([place] Comment on above: Result Comment: GFR Population [...] #### T ESTO, DHEAS, E2, PROG #### [address] [address] #### FT4, FT3, TSH #### [address] [address] .NEUABSon 08-08-2023 Neutrophil, Absolute 2.6 10 3/mcL Low 2.9-6.2 [facility] ([place]) Comment on above: Performed By: #### T ESTO, DHEAS, E2, PROG #### [place] [address] #### FT4, FT3, TSH #### [address] [address] A1Con 08-08-2023 HbA1c (Bld) [Mass fraction] 6.0 % Normal 4.3-6.4 [facility] ([place] Comment on above: Performed By: #### T ESTO, DHEAS, E2, PROG #### [place] [address] #### FT4, FT3, TSH #### [address] [address] CBCon 08-08-2023 Erythrocyte distribution width (RBC) [Ratio] 13.4 % Normal 11.5-14.5 [facility] ([place] Comment on above: Performed By: #### T ESTO, DHEAS, E2, PROG #### [place] [address] #### FT4, FT3, TSH #### [address] [address] Hematocrit (Bld) [Volume fraction] 39.5 % Normal 37.0-47.0 [facility] ([place] Comment on above: Performed By: #### T ESTO, DHEAS, E2, PROG #### [place] [address] #### FT4, FT3, TSH #### [address] [address] Hgb 13.1 G/dL Normal 12.0-16.0 [facility] ([place] Comment on above: Performed By: #### T ESTO, DHEAS, E2, PROG #### [place] [address] #### FT4, FT3, TSH #### [address] [address] MCH (RBC) [Entitic mass] 30.3 pg Normal 27.0-31.2 [facility] ([place] Comment on above: Performed By: #### T ESTO, DHEAS, E2, PROG #### [place] [address] #### FT4, FT3, TSH #### [address] [address] MCHC 33.3 G/dL Normal 33.0-37.0 [facility] ([place] Comment on above: Performed By: #### T ESTO, DHEAS, E2, PROG #### [place] [address] #### FT4, FT3, TSH #### [address] [address] MCV (RBC) [Entitic vol] 91.1 fL Normal 80.0-94.0 [facility] ([place] Comment on above: Performed By: #### T ESTO, DHEAS, E2, PROG #### [place] [address] #### FT4, FT3, TSH #### [address] [address] Platelet 286 10 3/mcL Normal 130-400 [facility] ([place]) Comment on above: Performed By: #### T ESTO, DHEAS, E2, PROG #### [place] [address] #### FT4, FT3, TSH #### [address] [address] Platelet mean volume (Bld) [Entitic vol] 7.4 fL Normal 7.4-10.4 [facility] ([place] Comment on above: Performed By: #### T ESTO, DHEAS, E2, PROG #### [place] [address] #### FT4, FT3, TSH #### [address] [address] RBC 4.34 10 6/mcL Normal 4.20-5.40 [facility] ([place] Comment on above: Performed By: #### T ESTO, DHEAS, E2, PROG #### [place] [address] #### FT4, FT3, TSH #### [address] [address] WBC 4.2 10 3/mcL Low 4.6-10.8 [facility] ([place] Comment on above: Performed By: #### T ESTO, DHEAS, E2, PROG #### [place] [address] #### FT4, FT3, TSH #### [address] [address] CMPon 08-08-2023 Albumin Level 3.7 G/dL Normal 3.4-4.8 [facility] ([place] Comment on above: Performed By: #### T ESTO, DHEAS, E2, PROG #### [place] [address] #### FT4, FT3, TSH #### [address] [address] Albumin/Globulin [Mass ratio] 1.0 {ratio} Low 1.1-2.5 [facility] ([place] Comment on above: Performed By: #### T ESTO, DHEAS, E2, PROG #### [place] [address] #### FT4, FT3, TSH #### [address] [address] ALP [Catalytic activity/Vol] 115 U/L Normal 40-135 [facility] ([place] Comment on above: Performed By: #### T ESTO, DHEAS, E2, PROG #### [place] [address] #### FT4, FT3, TSH #### [address] [address] ALT [Catalytic activity/Vol] 28 U/L Normal 14-59 [facility] ([place] Comment on above: Performed By: #### T ESTO, DHEAS, E2, PROG #### [place] [address] #### FT4, FT3, TSH #### [address] [address] AST [Catalytic activity/Vol] 15 U/L Normal 10-40 [facility] ([place] Comment on above: Performed By: #### T ESTO, DHEAS, E2, PROG #### [place] [address] #### FT4, FT3, TSH #### [address] [address] Bili Total 0.5 mg/dL Normal 0.2-1.0 [facility] ([place] Comment on above: Result Comment: Use of this assay is not recommended for patients undergoing treatment with eltrombopag due to the potential for falsely elevated results. Performed By: #### T ESTO, DHEAS, E2, PROG #### [place] [address] #### FT4, FT3, TSH #### [address] [address] BUN/Creatinine Ratio 23 ratio Normal 7-27 [facility] ([place] Comment on above: Performed By: #### T ESTO, DHEAS, E2, PROG #### [place] [address] #### FT4, FT3, TSH #### [address] [address] Calcium [Mass/Vol] 8.5 mg/dL Normal 8.4-10.2 [facility] ([place]) Comment on above: Performed By: #### T ESTO, DHEAS, E2, PROG #### [place] [address] #### FT4, FT3, TSH #### [address] [address] Chloride [Moles/Vol] 105 mmol/L Normal 98-107 [facility] ([place] Comment on above: Performed By: #### T ESTO, DHEAS, E2, PROG #### [place] [address] #### FT4, FT3, TSH #### [address] [address] CO2 [Moles/Vol] 29 mmol/L Normal 23-31 [facility] ([place] Comment on above: Performed By: #### T ESTO, DHEAS, E2, PROG #### [place] [address] #### FT4, FT3, TSH #### [address] [address] Creatinine [Mass/Vol] 0.74 mg/dL Normal 0.55-1.02 [facility] ([place]) Comment on above: Performed By: #### T ESTO, DHEAS, E2, PROG #### [place] [address] #### FT4, FT3, TSH #### [address] [address] Electrolyte Balance 11.0 mEq/L Normal 4.0-15.0 Counts include 234 beds at the [facility] ([place]) Comment on above: Performed By: #### T ESTO, DHEAS, E2, PROG #### [place] [address] #### FT4, FT3, TSH #### [address] [address] Globulin 3.6 G/dL Normal [facility] ([place]) Comment on above: Performed By: #### T ESTO, DHEAS, E2, PROG #### [place] [address] #### FT4, FT3, TSH #### [address] [address] Glucose [Mass/Vol] 100 mg/dL Normal 80-115 [facility] ([place]) Comment on above: Performed By: #### T ESTO, DHEAS, E2, PROG #### [place] [address] #### FT4, FT3, TSH #### [address] [address] Potassium [Moles/Vol] 4.5 mmol/L Normal 3.5-5.1 [facility] ([place]) Comment on above: Performed By: #### T ESTO, DHEAS, E2, PROG #### [place] [address] #### FT4, FT3, TSH #### [address] [address] Sodium [Moles/Vol] 145 mmol/L Normal 136-145 [facility] ([place] Comment on above: Performed By: #### T ESTO, DHEAS, E2, PROG #### [place] [address] #### FT4, FT3, TSH #### [address] [address] Total Protein 7.3 G/dL Normal 6.4-8.2 [facility] ([place] Comment on above: Performed By: #### T ESTO, DHEAS, E2, PROG #### [place] [address] #### FT4, FT3, TSH #### [address] [address] Urea nitrogen [Mass/Vol] 17 mg/dL Normal 7-18 [facility] ([place] Comment on above: Performed By: #### T ESTO, DHEAS, E2, PROG #### [place] [address] #### FT4, FT3, TSH #### [address] [address] DHEASon 08-08-2023 DHEA-SO4 132.31 mcg/dL Normal 25.90-460.20 [facility] ([place]) Comment on above: Result Comment: No te - New Reference Range in effect 20 Performed By: #### T ESTO, DHEAS, E2, PROG #### [place] [address] #### FT4, FT3, TSH #### [address] [address] E2on 08-08-2023 Estradiol Level 30.21 pg/mL Normal [facility] ([place]) Comment on above: Result Comment: No te - New Reference Range in effect 20 Adult Female E2 Reference Ranges: Follicular phase 19.5 - 144.2 pg/mL Midcycle 63.9 - 356.7 pg/mL Luteal phase 55.8 - 214.2 pg/mL Post menopausal 0 - 33.2 pg/mL Performed By: #### T ESTO, DHEAS, E2, PROG #### [place] [address] #### FT4, FT3, TSH #### [address] [address] FT3on 08-08-2023 Free T3 [Mass/Vol] 3.01 pg/mL Normal 2.30-4.00 [facility] ([place]) Comment on above: Performed By: #### T ESTO, DHEAS, E2, PROG #### [place] [address] #### FT4, FT3, TSH #### [address] [address] FT4on 08-08-2023 Free T4 [Mass/Vol] 1.04 ng/dL Normal 0.76-1.46 [facility] ([place]) Comment on above: Performed By: #### T ESTO, DHEAS, E2, PROG #### [address] [address] #### FT4, FT3, TSH #### [place] [id number] [place], [place] [address] LABORATORYOrdered By: SYSTEM SYSTEM on 08-08-2023 Albumin [...] 08-08-2023 Lipase Level 48 U/L Normal 16-77 [facility] ([place]) Comment on above: Performed By: #### T ESTO, DHEAS, E2, PROG #### [place] [address] #### FT4, FT3, TSH #### [address] [address] LIPIDon 08-08-2023 Cholesterol [Mass/Vol] 128 mg/dL Normal 0-200 [facility] ([place]) Comment on above: Result Comment: Chol esterol Reference Interval: Less than 200 Desirable 200-239 Borderline high risk 240 and above High risk Performed By: #### T ESTO, DHEAS, E2, PROG #### [place] [id number] #### FT4, FT3, TSH #### [address] [address] Cholesterol in HDL [Mass/Vol] 49 mg/dL Normal 40-60 [facility] ([place] Comment on above: Performed By: #### T ESTO, DHEAS, E2, PROG #### [place] [address] #### FT4, FT3, TSH #### [address] [address] Cholesterol in LDL [Mass/Vol] 70 mg/dL Normal 0-130 [facility] ([place] Comment on above: Performed By: #### T ESTO, DHEAS, E2, PROG #### [place] [address] #### FT4, FT3, TSH #### [address] [address] Triglyceride [Mass/Vol] 44 mg/dL Normal 0-150 [facility] ([place] Comment on above: Result Comment: Trig lyceride Reference Interval: Less than 150 Normal 150-199 Borderline high risk 200-499 High risk 500 or higher Very high risk Performed By: #### T ESTO, DHEAS, E2, PROG #### [place] [address] #### FT4, FT3, TSH #### [address] [address] PROGon 08-08-2023 Progesterone Level 22.8 ng/mL Normal [facility] ([place]) Comment on above: Result Comment: Adul t Female Progesterone Reference Ranges: Follicular phase <0.21 - 1.40 ng/mL Luteal phase 3.34 - 25.56 ng/mL Mid-Luteal phase 4.44 - 28.03 ng/mL Postmenopausal <0.21 - 0.73 ng/ml Female: First trimester 11.22 - 90.00 ng/ml Second trimester 25.55 - 89.40 ng/ml Third trimester 48.40 - 422.50 ng/ml Performed By: #### T ESTO, DHEAS, E2, PROG #### [place] [address] #### FT4, FT3, TSH #### [address] [address] TESTOon 08-08-2023 Testosterone Lvl 22.62 ng/dL Normal [facility] ([place]) Comment on above: Result Comment: Norm al Reference Ranges for Females: Female Premenopause Age 21-60 9.01-47.94 ng/dL Female Postmenopause Age 45-89 <7.00-45.62 ng/dL Performed By: #### T ESTO, DHEAS, E2, PROG #### [place] [address] #### FT4, FT3, TSH #### [place] [address] [place], [place] [address] TSHon 08-08-2023 TSH Qn 0.03 m[IU]/L Low 0.36-3.74 [facility] ([place]) Comment on above: Performed By: #### T ESTO, DHEAS, E2, PROG #### [place] [address] #### FT4, FT3, TSH #### [place] [id number] [place], [place] [address] LABORATORYOrdered By: SYSTEM SYSTEM on 11-18-2022 DHEA-S [...] 10.8 10^3/mcL AO Workflow SS LABORATORYOrdered By: [employer] SYSTEM on 06-14-2022 GFR 88 ml/min/1.73sqm Invalid [...] the ages of 18-89 years. LABORATORYOrdered By: [employer] SYSTEM on 02-22-2022 DHEA-S [Mass/Vol] 44.35 ug/dL [...] Non-Invasive [address] JESSE HOLDEN MD [facility] 03-30-2023 09:36-0400 Heart rate 57 /min DR JESSE HOLDEN MD [facility] 03-30-2023 09:36-0400 Systolic Blood Pressure Non-Invasive [address] JESSE HOLDEN MD [facility] 03-30-2023 09:32-0400 Diastolic Blood Pressure Non-Invasive [address] JESSE HOLDEN MD [facility] 03-30-2023 09:32-0400 Heart rate 62 /min DR JESSE HOLDEN MD [facility] 03-30-2023 09:32-0400 Systolic Blood Pressure Non-Invasive [address] JESSE HOLDEN MD [facility] 03-30-2023 09:25-0400 Diastolic Blood Pressure Non-Invasive [address] JESSE HOLDEN MD [facility] 03-30-2023 09:25-0400 Heart rate 68 /min DR JESSE HOLDEN MD [facility] 03-30-2023 09:25-0400 Systolic Blood Pressure Non-Invasive [address] JESSE HOLDEN MD [facility] 03-30-2023 09:05-0400 Respiratory Rate - Anes 0 br/min DR JESSE HOLDEN MD [facility] 03-30-2023 09:00-0400 Respiratory Rate - Anes 24 br/min DR JESSE HOLDEN MD [facility] 03-30-2023 07:35-0400 Body temperature 98.06 [degF] DR JESSE HOLDEN MD [facility] 03-30-2023 07:35-0400 Heart rate 73 /min DR JESSE HOLDEN MD [facility] 03-30-2023 07:27-0400 Body height 171.[address] JESSE HOLDEN MD [facility] 03-30-2023 07:27-0400 Body weight 77.[address] JESSE HOLDEN MD [facility] 03-30-2023 07:27-0400 Body weight 26.31 kg/m2 DR JESSE HOLDEN MD [facility] 09-10-2022 08:53-0400 Diastolic blood pressure 85 mm[Hg] IMTIAZ RANDA DO [facility] 09-10-2022 08:53-0400 Heart rate 60 /min IMTIAZ RANDA DO [facility] 09-10-2022 08:53-0400 Respiratory rate 16 /min IMTIAZ RANDA DO [facility] 09-10-2022 08:53-0400 Systolic blood pressure 106 mm[Hg] IMTIAZ RANDA DO [facility] 09-10-2022 08:41-0400 Diastolic blood pressure 71 mm[Hg] IMTIAZ RANDA DO [facility] 09-10-2022 08:41-0400 Heart rate 86 /min IMTIAZ RANDA DO [facility] 09-10-2022 08:41-0400 Respiratory rate 16 /min IMTIAZ RANDA DO [facility] 09-10-2022 08:41-0400 Systolic blood pressure 122 mm[Hg] IMTIAZ RANDA DO [facility] 09-10-2022 08:31-0400 Body temperature 96.8 [degF] IMTIAZ RANDA DO [facility] 09-10-2022 08:31-0400 Diastolic blood pressure 72 mm[Hg] IMTIAZ RANDA DO [facility] 09-10-2022 08:31-0400 Heart rate 75 /min IMTIAZ RANDA DO [facility] 09-10-2022 08:31-0400 Respiratory rate 16 /min IMTIAZ RANDA DO [facility] 09-10-2022 08:31-0400 Systolic blood pressure 135 mm[Hg] IMTIAZ RANDA DO [facility] 09-10-2022 08:25-0400 Diastolic Blood Pressure NBP 89 1 IMTIAZ RANDA DO [facility] 09-10-2022 08:25-0400 Systolic Blood Pressure NBP 131 1 IMTIAZ RANDA DO [facility] 09-10-2022 08:20-0400 Diastolic Blood Pressure NBP 94 1 IMTIAZ RANDA DO [facility] 09-10-2022 08:20-0400 Systolic Blood Pressure NBP 120 1 IMTIAZ RANDA DO [facility] 09-10-2022 08:15-0400 Diastolic Blood Pressure NBP 104 1 IMTIAZ RANDA DO [facility] 09-10-2022 08:15-0400 Systolic Blood Pressure NBP 139 1 IMTIAZ RANDA DO [facility] 09-10-2022 07:27-0400 Body height 167.2 cm IMTIAZ RANDA DO [facility] 09-10-2022 07:27-0400 Body weight 78 kg IMTIAZ RANDA DO [facility] 09-10-2022 07:27-0400 Body weight 27.9 kg/m2 IMTIAZ RANDA DO [facility] 09-10-2022 07:14-0400 Body height 167.2 cm IMTIAZ RANDA DO [facility] 09-10-2022 07:14-0400 Body temperature 96.8 [degF] IMTIAZ ROMEROY DO [facility] 09-10-2022 07:140400 Body weight 78 kg IMTIAZ TOLENTINO DO [facility] 09-10-2022 07:140400 Heart rate 80 /min IMTIAZ TOLENTINO DO [facility] Encounters Encounter Date Encounter Type Care Provider Facility Start: 09-11-2025 ambulatory Joyce Lynn Facility:[facility] Start: 08-24-2025 End: 08-24-[address] JOYCE LYNN DO [facility] Start: 08-24-2025 End: 08-24-2025 Patient encounter procedure ROSAURA MILLARD APRN_CNP [facility] Start: 07-08-2025 End: 07-08-[address] JOYCE LYNN DO Facility[facility] Start: 07-08-2025 End: 07-08-2025 Patient encounter procedure ROSAURA MILLARD APRN_CNP [facility] Start: 06-12-2025 End: 06-12-[address] JOYCE LYNN DO [facility] Start: 06-12-2025 End: 06-12-[address] JOYCE LYNN DO [facility] Start: 05-29-2025 End: 06-02-[address] JOYCE LYNN DO Facility[facility] Start: 05-29-2025 End: 06-02-2025 Outreach Lab PHILIP ALDANA PU[employer]ING SUPERVISOR-[employer] OPERATOR [facility] Start: 05-18-2025 End: 05-18-[address] JOYCE LYNN DO Facility[facility] Start: 05-18-2025 End: 05-18-[address] JOYCE LYNN DO [facility] Start: 05-04-2025 End: 05-04-[address] JOYCE LYNN DO Facility[facility] Start: 05-04-2025 End: 05-04-[address] JOYCE LYNN DO [facility] Start: 04-29-2025 End: 04-29-[address] JOYCE LYNN DO Facility[facility] Start: 04-29-2025 End: 04-29-[address] JOYCE LYNN DO [facility] Start: 03-27-2025 End: 05-30-[address] JOYCE LYNN DO Facility[facility] Start: 03-27-2025 End: 05-30-[address] JOYCE LYNN DO [facility] Start: 03-21-2025 End: 03-25-[address] JOYCE LYNN DO Facility[facility] Start: 03-21-2025 End: 03-25-[address] JOYCE LYNN DO [facility] Start: 03-08-2025 End: 03-08-[address] JOYCE LYNN DO Facility:[facility] Start: 01-16-2025 End: 01-16-[address] JOYCE LYNN DO Facility:[facility] Start: 01-16-2025 End: 01-16-[address] JOYCE LYNN DO [facility] Start: 01-06-[address] JOYCE LYNN DO Facili ty:[facility] Start: 01-03-2025 End: 01-07-[address] JOYCE LYNN DO Facility:[facility] Start: 01-03-2025 End: 01-07-[address] JOYCE LYNN DO [facility] Start: 01-03-2025 End: 01-03-2025 ambulatory STEVEN MCMAHAN PAINT SPECIALIST-C Facility:[facility] Start: 01-03-2025 End: 01-03-2025 Patient encounter procedure STEVEN MCMAHAN PAINT SPECIALIST-C [facility] Start: 09-05-2024 End: 09-05-[address] JOYCE LYNN DO Facility:[facility] Start: 09-05-2024 End: 09-05-2024 Patient encounter procedure JESSICA VALDEZ PUMPING SUPERVISOR-PACK PRESS OPERATOR [facility] Start: 07-07-2024 End: 07-07-[address] JOYCE LYNN DO Facility:B Start: 06-09-2024 End: 06-09-2024 ambulatory JESSICA VALDEZ PUMPING SUPERVISOR-PACK PRESS OPERATOR Facility:B Start: 06-09-2024 End: 06-09-2024 Patient encounter procedure JESSICA VALDEZ PUMPING SUPERVISOR-PACK PRESS OPERATOR [facility] Start: 02-08-2024 End: 02-08-[address] JOYCE LYNN DO Facility:[facility] Start: 02-08-2024 End: 02-08-[address] JOYCE LYNN DO [facility] Start: 01-18-2024 End: 01-18-2024 ambulatory HAYES REEDER MD Facility:[facility] Start: 08-08-2023 End: 08-08-2023 ambulatory HAIDER ZAPATA DO Facility:[facility] Start: 08-08-2023 End: 08-08-[address] JOYCE LYNN DO [facility] Start: 07-08-2023 End: 07-08-[address] JOYCE LYNN DO [facility] Start: 07-01-2023 End: 07-01-2023 ambulatory [facility] Work Phone: Start: 07-01-2023 End: 07-01-2023 Patient encounter procedure [facility] Work Phone: Start: 03-30-2023 End: 03-30-[address] JESSE HOLDEN MD [facility] Start: 11-18-2022 End: 11-18-[address] JOYCE LYNN DO [facility] Start: 09-10-2022 End: 09-10-2022 Minor Procedure IMTIAZ TOLENTINO DO [facility] Start: 06-14-2022 End: 06-14-2022 Patient encounter procedure DAMIÁN NI PACK PRESS OPERATOR [facility] Start: 02-22-2022 End: 02-22-2022 Patient encounter procedure HAIDER ZAPATA DO [facility] Start: 10-09-2021 End: 12-16-[address] KATHIA GARVEY DO [facility] Procedures Date Procedure Procedure Detail Performing Clinician Start: 11-23-2023 Genus Meniscus (organism) JESSICA JOSÉ MIGUEL APR N-PACK PRESS OPERATOR Start: 07-01-2023 Screening mammography Start: 04-01-2023 Esophagogastroduodenoscopy [...] Translations: [Pneumovax 23] DR JOYCE LYNN DO [facility] 01-14-2016 pneumococcal conjuga te vaccine, 13 valent DAMIÁN [facility] 09-13-2015 tetanus toxoid, redu kelly diphtheria toxoid, and acellular pertussis vaccine, adsorbed DAMIÁN [facility] Payers Date Payer Category Payer Self-pay [id number] 2024 Medicare [id number] 2023 Medicare [id number] 2023 Unknown [id number] 2022 Medicare [id number] 2022 Private Health Insurance [facility] [id number] 2022 Unknown [id number] 2013 Unknown ANTHEM [id number] 1957 Unknown [id number] 2.16.8 40.1.432159.3.579.2.7 1955 Unknown [id number] 2.16.8 40.1.117243.3.579.2. 1957 Unknown [id number] 2.16.8 40.1.690377.3.579.2. 1957 Unknown [id number] 2.16.8 40.1.593114.3.579.2. 1957 Unknown [id number] 2.16.8 40.1.996747.3.579.2. 1957 Unknown [id number] 2.16.8 40.1.886196.3.579.2.627 1957 Unknown [id number] 2.16.8 40.1.358763.3.579.2. 1957 Unknown [id number] 2.16. 840.1.422637.3.579.2.62 1957 Unknown [id number] 2.16. 840.1.238508.3.579.2.627 1957 Unknown [id number] 2.16. 840.1.909999.3.579.2. 1957 Unknown [id number] 2.16. 840.1.272438.3.579.2. 1955 Unknown [id number] 2.16. 840.1.448879.3.579.2. 1957 Unknown [id number] 2.16. 840.1.448415.3.579.2. 1957 Unknown [id number] 2.16. 840.1.510727.3.579.2. 1957 Unknown [id number] 2.16. 840.1.682012.3.579.2. 1955 Unknown [id number] 2.16. 840.1.710392.3.579.2. 1957 Unknown [id number] 2.16.8 40.1.706775.3.579.2. 1957 Unknown [id number] 2.16.8 40.1.295999.3.579.2. 1957 Unknown [id number] 2.16.8 40.1.197617.3.579.2. 1957 Unknown [id number] 2.16.8 40.1.108712.3.579.2. 1957 Unknown [id number] 2.16.8 40.1.009161.3.579.2. 1957 Unknown [id number] 2.16.8 40.1.061944.3.579.2. 1957 Unknown [id number] 2.16.8 40.1.345506.3.579.2. 1957 Unknown [id number] 2.16.8 40.1.821222.3.579.2. 1955 Unknown [id number] 2.16.8 40.1.170749.3.579.2.627 Unknown [id number] 2.16.8 40.1.515890.3.579.2.462 Social History Date Type Detail Facility Start: 12-27-2019 End: 02-07-2025 Never smoked tobacco (finding) [facility] Sex Assigned At [facility] Start: 1955 Sex Assigned At Female [facility] Start: 01-01-2006 Sex Female (finding) [facility] Medical Equipment Procedure Code Equipment Code Equipment [...] 03-30-2023 Functional Status Awake, Repositions self, Resting [facility] 03-30-2023 Functional Status Maintained [facility] 09-10-2022 Functional Status Awake [facility] 09-10-2022 Functional Status Maintained [facility] Mental Status Date Assessment Result Facility 03-30-2023 Mental Status Oriented x 4 [facility] 03-30-2023 Mental Status [facility] 09-10-2022 Mental Status Orientation Oriented x 4 [facility] 09-10-2022 Mental Status [facility] Clinical Notes 09-08-2022 to 06-12-2025 Note Date & Type Note Facility 06-12-2025 Note Exam Date Time Procedure Performing Provider Status 06/12/25 8:42 AM Echocardiogram, Adult - CV EMILY DIALLO MD; Auth (Verified) [facility]07-09-2025 Note. MICRO - Microbiology PROCEDURE: Urine Culture [...] Locations *1: This test was performed at: [address], [address] , [facility]05-01-2025 Note. MICRO - Microbiology PROCEDURE: Throat Culture [*1] SOURCE: Throat BODY SITE: COLLECTED DATE/TIME: 03/21/2025 14:11 EDT RECEIVED DATE/TIME: 03/21/2025 18:41 EDT START DATE/TIME: 03/21/2025 18:41 EDT FREE TEXT SOURCE: FINAL REPORTS Final Report [] Verified Date/Time/Personnel: 03/23/2025 07:06 EDT Normal throat tad present Sensitivity Testing: Not Indicated PRELIMINARY REPORTS Preliminary Report [] Verified Date/Time/Personnel: 03/22/2025 07:44 EDT Negative for upper respiratory pathogens at 24 hours. Performing Locations *1: This test was performed at: [address] [place], [address]- , [facility]02-24-2025 Note* Exam Date Time Procedure Performing Provider Status 01/16/25 10:15 AM US Pelvis Non-OB W/Transvaginal DONTA SOTO DO; Auth (Verified) [id number] ORIGINAL EXAMINATION: TRANSVAGINAL PELVIC ULTRASOUND 01/16/2025 TECHNIQUE: [...] 01/16/2025 4:06:16 PM Ordering Provider: JOYCE LYNN [facility]02-13-2025 Note. MICRO - Microbiology PROCEDURE: Urine Culture [...] Locations *1: This test was performed at: [facility], [address] [place] [address], [address] , [facility]05-08-2023 Evaluation + Plan noteExtracted from: Title:Clinical Document Author:JESSE HOLDEN Date:03/30/23 [place] ADMISSION HISTORY AN D PHYSICIAL CHIEF COMPLAINT: HISTORY OF PRESENT ILLNESS: REVIEW OF SYSTEMS: ACTIVE PROBLEMS: (12) Acute maxillary sinusitis (867380963) Chronic back pain greater than 3 months duration (7875884355) Fibromyalgia (807758366) Gastroesophageal reflux (844692277) Hiatal hernia (375563013) Leg cramping (7099937514) Osteopenia (400476064) Osteoporosis (875448505) Prediabetes (8730850105) Sinusitis (47674333) Split S1 (first heart sound) (022110446) T12 vertebral fracture (8077410690) MEDICATIONS: Active Inpt Meds: None Active PRN Meds: None One Time Meds: None Active IV Meds: Lactated Ringers Infusion 1,000 mL (LR 1,000 mL) Start: 03/30/23 7:15:00 EDT, Rate: 50 mL/hr, 03/30/23 7:15:00 EDT ALLERGIES: (2) penicillin sulfa drug FAMILY HISTORY: SOCIAL HISTORY: PHYSICAL EXAM: VITALS: DepaxiKtlqDOHesdyGLNfJ9CCO3YbqvKn(kg) 03/30 07:3536.7--73--97RA03/30 77.3 24 Hr Tmax: 36.7 [...] Date:06/23/2023 08:00:00 AM Scheduled Provider:JOYCE LYNN DO Location:[facility] Appointment Type:[facility] Medicare [facility] [...] before eating solid foods. General instructions Take kvkl-zhf-xsjrtlf and prescription medicines only as told by [...] 03/01/2017 Document Revised: 02/07/2019 Document Reviewed: 03/01/2017 [employer] Patient Education 2020 [employer]. 03/30/2023 09:15:12 9 - AO Minor Esophagogastroduodenoscopy [...] With:JESSE HOLDEN MD Address: [address] [phone] When: Unknown [facility] [place] 05-08-2023 Summary of episode note Discharge Instructions Thank you for allowing [facility] to assist you with your healthcare needs. The following is importantdischarge information regarding your hospital visit. Your Care Team JOYCE LYNN DO What to do next Scheduled Follow-Up Appointments Appointment Type When With Where Contact InformationPC Wellness Medicare 06/23/2023 08:00 AM EDT JOYCE LYNN DO [facility] [place] [address] [place] [address] Follow Up Appointments Follow Up with JESSE HOLDEN MD When Where: [address] [place] [phone] The Following Activity and Diet Have Been [...] before eating solid foods. General instructions Take xkte-ngz-ionawhd and prescription medicines only as told by [...] 03/01/2017 Document Revised: 02/07/2019 Document Reviewed: 03/01/2017 [employer] Patient Education 2020 [employer] Esophagogastroduodenoscopy This is an endoscopic procedure [...] to receive it can visit one of [facility] vaccine clinics. There are many vaccine clinic locations within the [facility]. For locations and available times, please visit [email or web address] It is important to note that some COVID mobile vaccine clinics are held outdoors and may be canceled in rainy or stormy conditions. To learn more about pediatric vaccinations (ages 5-11), we invite you to visit the [facility] webpage. https://www.[facility].org/pages/2628-Jpolt-Ohoiyjjsjpd-Cukwbfuthy-Rubmy-Xee stions.htmlTo learn more about the COVID-19 vaccine, we invite you to visit the CDC website for a list of frequently asked questions. https://www.cdc.gov/coronavirus/2019-ncov/vaccines/faq.html [employer] Patient Portal Access Instructions: Stay connected with your healthcare team and access your personal medical information anytime with the [employer] Patient Portal.If you would like a full copy of your medical records, please contact the [facility] Medical Records Department, Thursday through Thursday between 8a.m. and 4:30p.m. Please follow the directions below to access the portal: 1.Access the email account you provided upon registration to the hospital.2.Look for an invitation email from [facility].3.Open the email and access the invitation link: Accept Invitation to [email or web address].Fill in the required ordaz to create your account. Sign into [email or web address] with your username and password that you [...] you will allow to register on the [facility] Patient Portal for access to your information. You can also access the [email or web address] Patient Portal on the [employer] scotty. Simply click on Health Records under [...] Call your local pharmacy or go to http://bit.ly/8L0Ef6h to find one close to you.3.Make use of household items: Use cat litter or old coffee grounds to dispose medications if other options arenot available. Mix your drugs with these household products, seal them in an airtight container andthrow it into the garbage. Call [facility]: [phone] to be sure your drugs can be [...] aware that I should contact my doctor. Patient/Billing Assistant Signature: Date/Time: Relationship to Patient: Witness Name/Signature: Date/Time: [facility]05-08-2023 Anesthesiology Consult note Patient: LIZZIE COLLINS Age: 67 years Sex: Female : 1955 Associated Diagnoses: None Author: JEREMIE MATA APRN-DRAW FRAME OPERATOR Preoperative Information Time of last food or [...] Medical Acute maxillary sinusitis / SNOMED CT 262671002 / Confirmed Chronic back pain greater than 3 months duration / SNOMED CT 8581155405 / Confirmed Leg cramping / SNOMED CT 6500829035 / Confirmed Fibromyalgia / SNOMED CT 939080042 / Confirmed Split S1 (first heart sound) / SNOMED CT 760784241 / Confirmed T12 vertebral fracture / SNOMED CT 0403342330 / Confirmed Gastroesophageal reflux / SNOMED CT 378463423 / Confirmed Hiatal hernia / SNOMED CT 723312646 / Confirmed Osteopenia / SNOMED CT 709651107 / Confirmed Osteoporosis / SNOMED CT 820265365 / Confirmed Prediabetes / SNOMED CT 8998546299 / Confirmed Sinusitis / SNOMED CT 23329112 / Confirmed, Active Problems (12) Acute maxillary [...] Mother Osteoporosis Mother Sister Procedure history: Colonoscopy (399170286) on 09/10/2022 at 66 Years. Trigger finger (0875349052). Wrist (67950315). Laparoscope (426489107). Arthroscopic repair of rotator cuff (4693342519). Social History Social & Psychosocial Habits Alcohol 12/27/2019 Use: Never Substance Abuse 12/27/2019 Use: Never Tobacco 12/27/2019 Tobacco Use: Never (less than 100 in l Exposure to Tobacco Smoke Lives in non-smoking home Home/Environment 12/27/2019 Primary Senior Cost Analyst: Self Nutrition/Health 06/24/2022 Caffeine intake amount: Coffee [...] mmHg Diastolic Blood Pressure Non-Invasive 95 mmHg W[place] Vital Signs(last 24 hrs) Last Charted Heart Rate Byfktqjsy49 bpm (MARCH 30 09:05) NFL204 mmHg (MARCH 30 09:05) DBP79 mmHg (MARCH 30 09:05) BMI26.31 (MARCH 30 07:27) Measurements from flowsheet : Measurements 03/30/2023 7:27 EDT Height 171.4 cm Admission Weight 77.3 kg Weight Method Stated Pelican Body Weight 62.70 kg BSA Admission 1.9 [...] 03/30/2023 9:06 EDT AO ENDO Procedure Record [facility] ENDO Procedure Record (Modified) 03/30/2023 9:05 EDT [...] Bag 1,000 mL mL 03/30/2023 8:58 EDT [place] History and Physical 03/30/2023 8:55 EDT SN [...] Surgeon SN - CAt - Role Performed Improvement Nurse 1 SN - CAt - Role Performed DRAW FRAME OPERATOR SN - CAt - Role Performed Production Dispatcher 03/30/2023 7:47 EDT Hand Right 03/30/2023 22 [...] no difficulties Skin Temperature Warm Skin Description [place], Normal for ethnicity Skin Integrity Intact Skin [...] Person #1 We May Share THAD GONZALEZ [phone] Designated Person #1 Relationship Spouse Height 171.4 cm Admission Weight 77.3 kg Weight Method Stated Pelican Body Weight 62.70 kg BSA Admission 1.9 [...] Method Explanation, Printed materials Preferred Written Language Nigerien Preferred Spoken Language Nigerien Information Given by Patient Patient's Current Physicians DR. LYNN PCP Discharge To, Anticipated Home with family care Prev Test Positive/Diagnosis w/COVID-19 No Current Quarantine/Isolated any Illness No Any Contact with Sick Animals/Birds No Traveled Anywhere in Last 30 Days No Yes Personal Devices, Patient Valuables None Admission Note-Nursing Procedure/Therapy Intake . Assessment and Plan [place] [employer] of Anesthesiologists (ASA) physical status classification: Class II. Anesthetic Preoperative Plan Anesthetic technique: MAC. Informed consent: signed by patient. Digitally Signed by JEREMIE MATA on 03/30/2023 09:12 AM [facility]05-08-2023 Anesthesiology Consult note Patient: LIZZIE COLLINS Age: [...] by JEREMIE MATA on 03/30/2023 09:11 AM [facility]05-08-2023 Note [place] ADMISSION H[place]ORY AND PHYSICIAL CHIEF COMPLAINT: HISTORY OF PRESENT ILLNESS: REVIEW OF SYSTEMS: ACTIVE PROBLEMS: (12) Acute maxillary sinusitis (199884544) Chronic back pain greater than 3 months duration (6213955466) Fibromyalgia (867390329) Gastroesophageal reflux (072984175) Hiatal hernia (815415354) Leg cramping (5619522266) Osteopenia (865779820) Osteoporosis (305723744) Prediabetes (4597875230) Sinusitis (19819374) Split S1 (first heart sound) (334873892) T12 vertebral fracture (1082245023) MEDICATIONS: Active Inpt Meds: None Active PRN Meds: None One Time Meds: None Active IV Meds: Lactated Ringers Infusion 1,000 mL (LR 1,000 mL) Start: 03/30/23 7:15:00 EDT, Rate: 50 mL/hr, 03/30/23 7:15:00 EDT ALLERGIES: (2) penicillin sulfa drug FAMILY HISTORY: SOCIAL HISTORY: PHYSICAL EXAM: VITALS: PzelwzVskkFTQpcbxDBBkM2LEU1UgrfJl(kg) 03/30 07:3536.7--73--97RA03/30 77.3 24 Hr Tmax: 36.7 [...] JESSE HOLDEN MD on 03/30/2023 09:00 AM [facility]10-19-2022 Hospital Discharge instructions Patient Education 09/10/2022 08:40:01 [...] before eating solid foods. General instructions Take abmq-qez-qlksfqd and prescription medicines only as told by [...] 03/01/2017 Document Revised: 02/07/2019 Document Reviewed: 03/01/2017 [employer] Patient Education 2020 [employer]. 09/10/2022 08:40:01 Colonoscopy, Adult, Care After Colonoscopy, [...] a slower pace than normal. ?Eat soft, ypwq-xh-qhtdln foods. Take nstf-wvm-qavgqen or prescription medicines only as told by [...] 06/23/2005 Document Revised: 09/01/2018 Document Reviewed: 01/20/2017 [employer] Patient Education 2020 [employer]. Follow Up Care 07/03/2022 09:07:07 With:JOYCE LYNN DO Address: [address] [place] [address] [phone] When: Unknown [facility] 10-19-2022 Summary of episode note Discharge Instructions Thank you for allowing [facility] to assist you with your healthcare needs. The following is importantdischarge information regarding your hospital visit. Your Care Team JOYCE LYNN DO, DR. What to do next Scheduled Follow-Up Appointments Appointment Type [facility] 10[facility]00 AM EDT JOYCE LYNN DO [address] [address] Follow Up Appointments Follow Up with JOYCE LYNN DO When Where: [address] [place] [phone] [phone] The Following Activity and Diet Have Been [...] before eating solid foods. General instructions Take isrn-cmk-kexwtsj and prescription medicines only as told by [...] 03/01/2017 Document Revised: 02/07/2019 Document Reviewed: 03/01/2017 [employer] Patient Education 2020 [employer]. Colonoscopy, Adult, Care After This sheet gives [...] slower pace than normal. ? Eat soft, fxcz-wq-drnpze foods. Take emsp-oqd-ogeukym or prescription medicines only as told by [...] 06/23/2005 Document Revised: 09/01/2018 Document Reviewed: 01/20/2017 [employer] Patient Education 2020 [employer]. Additional Information VACCINATE! IT SAVES LIVES! Members of the community who have not yet received the COVID-19 vaccine and would like to receive it can visit one of [facility] vaccine clinics. There are many vaccine clinic locations within the [facility]. For locations and available times, please visit [email or web address] It is important to note that some COVID mobile vaccine clinics are held outdoors and may be canceled in rainy or stormy conditions. To learn more about pediatric vaccinations (ages 5-11), we invite you to visit the [facility] webpage. https://www.[facility].org/pages/1112-Yjbkr-Keyyakgasls-Uvzophfdec-Sdmyc-Par stions.htmlTo learn more about the COVID-19 vaccine, we invite you to visit the [employer] website for a list of frequently asked questions. https://[facility]/assets/Jqnwspch-qht-Zbqmanev/ddomx-Gcwflio-Wqkvlyazuy _Asked-Questions.pdf [facility] Patient Portal Access Instructions: Stay connected with your healthcare team and access your personal medical information anytime with the [email or web address] Patient Portal.If you would like a full copy of your medical records, please contact the [facility] Medical Records Department, Thursday through Thursday between 8a.m. and 4:30p.m. Please follow the directions below to access the portal: 1.Access the email account you provided upon registration to the [facility].2.Look for an invitation email from [facility].3.Open the email and access the invitation link: Accept Invitation to [facility].Fill in the required ordaz to create your account. Sign into [email or web address] with your username and password that you [...] you will allow to register on the [email or web address] Patient Portal for access to your information. You can also access the [email or web address] Patient Portal on the [employer] scotty. Simply click on Health Records under HealthData and then click on the [employer] logo. HOW TO SAFELY DISPOSE OF PRESCRIPTION [...] Call your local pharmacy or go to http://bit.CloudX/9R5Bd0d to find one close to you.3.Make use of household items: Use cat litter or old coffee grounds to dispose medications if other options arenot available. Mix your drugs with these household products, seal them in an airtight container andthrow it into the garbage. Call [facility]: [phone] to be sure your drugs can be [...] aware that I should contact my doctor. Patient/Billing Assistant Signature: Date/Time: Relationship to Patient: Witness Name/Signature: Date/Time: [facility]10-19-2022 Anesthesiology Consult note Patient: LIZZIE COLLINS Age: [...] by KATLIN MITTAL on 09/10/2022 08:30 AM [facility]10-19-2022 Anesthesiology Consult note Patient: LIZZIE COLLINS Age: [...] than 3 months duration / SNOMED CT 7571411201 / Confirmed Leg cramping / SNOMED CT 2024170129 / Confirmed Fibromyalgia / SNOMED CT 804206858 / Confirmed Split S1 (first heart sound) / SNOMED CT 859937685 / Confirmed Gastroesophageal reflux / SNOMED CT 005195072 / Confirmed Hiatal hernia / SNOMED CT 538335586 / Confirmed Osteoporosis / SNOMED CT 937653987 / Confirmed Prediabetes / SNOMED CT 2180942675 / Confirmed, Active Problems (8) Chronic back pain greater than 3 months duration Fibromyalgia Gastroesophageal reflux Hiatal hernia Leg cramping Osteoporosis Prediabetes Split S1 (first heart sound) Histories Past Medical History: No active or resolved past medical history items have been selected or recorded. Family History: Osteoporosis Mother Sister Procedure history: Trigger finger (2240578221). Wrist (43490353). Social History Social & Psychosocial Habits Alcohol 12/27/2019 Use: Never Substance Abuse 12/27/2019 Use: Never Tobacco 12/27/2019 Tobacco Use: Never (less than 100 in l Exposure to Tobacco Smoke Lives in non-smoking home Home/Environment 12/27/2019 Primary Senior Cost Analyst: Self Nutrition/Health 06/24/2022 Caffeine intake amount: Coffee [...] qualifying data available . Assessment and Plan [place] [employer] of Anesthesiologists (ASA) physical status classification: Class III. Anesthetic Preoperative Plan Anesthetic technique: MAC. Postoperative pain management: Per surgeon. Risks discussed: nausea, vomiting, hypotension, allergic reaction, serious complications. Informed consent: signed by patient. Digitally Signed by KATLIN MITTAL on 09/10/2022 07:20 AM [facility]10-17-2022 Note [place] ADMISSION HISTORY AND PHYSICIAL CHIEF COMPLAINT: HISTORY OF PRESENT ILLNESS: screening colon REVIEW OF SYSTEMS: Constitutional: denies weight loss Cardiovascular:denies chest pain, palpitations Respiratory:denies shortness of breath Gastrointestinal:no abd pain Musculoskeletal: no arthralgias Skin: no rashes . ACTIVE PROBLEMS: (8) Chronic back pain greater than 3 months duration (3295185857) Fibromyalgia (515235838) Gastroesophageal reflux (969280525) Hiatal hernia (927310449) Leg cramping (5363484877) Osteoporosis (863554995) Prediabetes (5469898007) Split S1 (first heart sound) (691492820) MEDICATIONS: Active Inpt Meds: None Active PRN [...] IMTIAZ TOLENTINO DO on 09/10/2022 07:08 AM [facility]10-17-2022 Evaluation + Plan noteExtracted from: Title:Clinical Document Author:IMTIAZ TOLENTINO ate:09/08/22 [place] ADMISSION HISTORY AN D PHYSICIAL CHIEF COMPLAINT: HISTORY OF PRESENT ILLNESS: screening colon REVIEW OF SYSTEMS: Constitutional: denies weight loss Cardiovascular:denies chest pain, palpitations Respiratory:denies shortness of breath Gastrointestinal:no abd pain Musculoskeletal: no arthralgias Skin: no rashes . ACTIVE PROBLEMS: (8) Chronic back pain greater than 3 months duration ([id number]) Fibromyalgia (035122956) Gastroesophageal reflux (453382533) Hiatal hernia (055549155) Leg cramping ([id number]) Osteoporosis (334305520) Prediabetes (7878961467) Split S1 (first heart sound) (101487910) MEDICATIONS: Active Inpt Meds: None Active PRN [...] Date:09/23/2022 10:00:00 AM Scheduled Provider:JOYCE LYNN DO Location:[facility] Appointment Type:PC OV [facility] Evaluation + Plan note No data available for this section [facility] Evaluation + Plan note Future Appointments Appointment Date:06/24/2022 10:00:00 AM Scheduled Provider:JOYCE LYNN DO Location:[facility] Appointment Type:PC OV Diagnostic Tests Pending * Estradiol Level 06/14/22 * Progesterone Level 06/14/22 * Testosterone Level Total 06/14/22 Future Scheduled Tests Laboratory* Glucose Level 04/23/22 * Lipid Profile 04/23/22 [facility]uation + Plan note Future Appointments Appointment Date:03/03/2023 09:00:00 AM Scheduled Provider:JOYCE LYNN DO Location:[facility] Appointment Type: OV Follow Up [facility] Faveous + Plan note Future Appointments Appointment Date:06/24/2024 09:00:00 AM Scheduled Provider:JOYCE LNYN DO Location:[facility] Appointment Type:PC Wellness Medicare Future Scheduled Tests Laboratory* Lipase Level 06/23/23 * A1C Hemoglobin 06/23/23 * Complete Blood Count 06/23/23 * Lipid Profile 06/23/23 * Complete Metabolic Panel 06/23/23 [facility] [employer] Medical[employer] + Plan note Future Appointments Appointment Date:06/24/2024 09:00:00 AM Scheduled Provider:JOYCE LYNN DO Location:[facility] Appointment Type:PC Wellness Medicare [facility] [place] [employer] + Plan note Future Appointments Appointment Date:06/24/2024 09:00:00 AM Scheduled Provider:JOYCE LYNN DO Location:[facility] Appointment Type:PC Wellness Medicare Diagnostic Tests Pending * Thyroid Stim Immunoglobulin 02/08/24 [facility] [employer] + Plan note Future Appointments Appointment Date:07/01/2024 09:30:00 AM Scheduled Provider:JOYCE LYNN DO Location:[facility] Appointment Type:PC Wellness Medicare [facility] [place] [facility] + Plan note Future Appointments Appointment Date:09/06/2024 09:30:00 AM Scheduled Provider:JOYCE LYNN DO Location:[facility] Appointment Type: Office Procedure OMT Appointment Date:01/03/2025 09:30:00 AM Scheduled Provider:JOYCE LYNN DO Location:[facility] Appointment Type: OV Future Scheduled Tests Radiology* MA Mammo Screening Bilateral w/ Roger 07/01/24 * BD Bone Density DEXA Axial Skeleton Adult (21 yrs or older) 07/01/24 [facility] Evaluation + Plan note Future Appointments Appointment Date:02/07/2025 08:00:00 AM Scheduled Provider:JOYCE LYNN DO Location:[facility] Appointment Type:PC Office Procedure OMT Future Scheduled Tests Laboratory* Lipase Level 01/03/25 * Complete Blood Count 01/03/25 * Complete Metabolic Panel 01/03/25 Radiology* CT Abd/Pelvis w/ IV Contrast Only 01/03/25 * US Transvaginal Non OB 01/03/25 [facility] Evaluation + Plan note Future Appointments Appointment Date:01/16/2025 09:30:00 AM Scheduled Provider: Location:[facility] Appointment Type:CT Abd/Pelvis w/ IV Contrast Only Appointment Date:01/16/2025 10:00:00 AM Scheduled Provider: Location:[facility] Appointment Type:US Transvaginal Non OB Appointment Date:02/07/2025 08:00:00 AM Scheduled Provider:JOYCE LYNN DO Location:[facility] Appointment Type:PC Office Procedure OMT Future Scheduled Tests Laboratory* Lipase Level 01/03/25 * Complete Blood Count 01/03/25 * Complete Metabolic Panel 01/03/25 Radiology* CT Abd/Pelvis w/ IV Contrast Only 01/16/25 * US Transvaginal Non OB 01/16/25 [facility] Evaluation + Plan note Future Appointments Appointment Date:02/07/2025 08:00:00 AM Scheduled Provider:JOYCE LYNN DO Location:[facility] Appointment Type:PC Office Procedure OMT Future Scheduled Tests Laboratory* Complete Metabolic Panel 02/27/25 [facility] Evaluation + Plan note Future Appointments Appointment Date:03/27/2025 08:30:00 AM Scheduled Provider:Haider Scanlon PT Location:[facility] Appointment Type:PT Outpatient Evaluation Appointment Date:04/27/2025 11:00:00 AM Scheduled Provider:JOYCE LYNN DO Location:[facility] Appointment Type:PC Office Procedure OMT [facility] evaluation + Plan note Future Appointments Appointment Date:05/10/2025 02:30:00 PM Scheduled Provider:JOYCE LYNN DO Location:[facility] Appointment Type:PC Office Procedure OMT Appointment Date:05/25/2025 08:30:00 AM Scheduled Provider:JOYCE LYNN DO Location:[facility] Appointment Type:PC OV Future Scheduled Tests Radiology* MRI Brain w/ + w/o Contrast 04/27/25 [facility] Evaluation + Plan note Future Appointments Appointment Date:05/25/2025 08:30:00 AM Scheduled Provider:JOYCE LYNN DO Location:[facility] Appointment Type:PC OV Appointment Date:06/12/2025 08:00:00 AM Scheduled Provider: Location:[facility] Appointment Type:Echo - Echocardiogram Adult [facility] evaluation + Plan note Future Appointments Appointment Date:06/12/2025 08:00:00 AM Scheduled Provider: Location:[facility] Appointment Type:Echo - Echocardiogram Adult Appointment Date:06/22/2025 08:30:00 AM Scheduled Provider:JOYCE LYNN DO Location:[facility] Appointment Type:PC OV [facility] Evaluation + Plan note Future Appointments Appointment Date:06/22/2025 08:30:00 AM Scheduled Provider:JOYCE LYNN DO Location:[facility] Appointment Type:PC OV [facility] Evaluation + Plan note Future Appointments Appointment Date:08/03/2025 11:30:00 AM Scheduled Provider:JOYCE LYNN DO Location:[facility] Appointment Type:PC Office Procedure OMT Diagnostic Tests Pending * Thyroid Stim Immunoglobulin 07/08/25 [facility] evaluation + Plan note Future Appointments Appointment Date:08/03/2025 11:30:00 AM Scheduled Provider:JOYCE LYNN DO Location:[facility] Appointment Type:PC Office Procedure OMT [facility] Evaluation + Plan note Future Appointments Appointment Date:09/14/2025 11:00:00 AM Scheduled Provider:JOYCE LNYN DO Location:[facility] Appointment Type:PC Office Procedure OMT Appointment Date:10/04/2025 08:30:00 AM Scheduled Provider:JOYCE LYNN DO Location:[facility] Appointment Type:PC Wellness Medicare Future Scheduled Tests Radiology* MA Mammo Screening Bilateral w/ Roger 08/23/25 [facility] Evaluation noteNo assessment information available [facility] Work Phone: Hospital Discharge instructions No data available for this section [facility] Progress note No data available for this section [facility] Chief Complaint and Reason for Visit Chief [...] Member Role: Primary Care Physician Address: Address: [address] [place] [address]- Care Team Related Persons Name: CARLOS COLLINS Address: [address] [phone] [place] Care Team Personnel Name: JOYCE LYNN DO Position: P4 Physician - Primary Care Med Service: Active Provider Member Role: Primary Care Physician Address: Address: [address] [place] [address]- Care Team Related Persons Name: CARLOS COLLINS Address: [address] [phone] [place] Care Team Personnel Name: MICHIJOYCE Position: P4 Physician - Primary Care Member Role: Primary Care Physician Address: Address: [address] [facility] [place] [address]- Care Team Related Persons Name: CARLOS CLOLINS Address: [address] [phone] Goals (unrecognized section and content) Goals may be documented in a n alternate section INFORMATION SOURCE (unrecogn ized section and content) DATE CREATED AUTHOR 07/15/2024 [facility] DATE CREATED AUTHOR AUTHOR'S ORGANIZ ATION 08/28/2025 [facility] DATE CREATED AUTHOR AUTHOR'S ORGANIZ ATION 09/09/2025 [facility] FOR RECORDS PERTAINING TO PATIENTS WHO ARE [...] BE BASED ON THE PRIMARY CLINICAL RECORDS. [employer] provides no warranty or guarantee of the accuracy or completeness of information in this document.
== END | disposition home or self-care (01) ==
PROVIDERS: PCP Student in an Organized Health Care Education/Training Program; Referring Provider Student in an Organized Health Care Education/Training Program; Visit Provider Student in an Organized Health Care Education/Training Program
DX: Z12.31 Encounter for screening mammogram for malignant neoplasm of breast (principal)
CPT/HCPCS: 77063; 77067